=== PATIENT | female | born 1935 | race Caucasian/White ===

== ENCOUNTER 2016-08-09 21:14 | Emergency (ER) | payer OTHER ==
[~2016-08-09 21:14] MED LIST: /AMLO25TA PO; /OCUVTA PO; /ONDA4TA PO; /PROC10TA PO; ACET50TA PO; ACET650T12 PO; ARTH1TAB PO; ASPI1TAB PO; ATEN25TA PO; AUGM500T34 PO; BRIL90TA PO; CALC-136 PO; CIPR500T3 PO; DICL PO; DYAZCA PO; EYE VITAMIN PO; FLAG500T PO; FOLITAB11 PO; HCTZ25TA PO; HYDR1TAB97 PO; IRON CR PO; IRON325T PO; LEVO500T PO; LEVO750T PO; LIPI20TA PO; MAG400TA PO; MAGN400C2 PO; MAGNE; MOM30SS PO; MSIR30TA PO; MYLASSUD PO; OMEP40CA2 PO; PRIL20CA PO; TENO25TA PO; VITA200015 PO; VITMTA PO; XARE15TA PO; XARE20TA PO; ZOFR20TA PO; [UNRECOGNIZED DRUG - REMARK]; aspirin OR; calcium OR; magnesium OR; nitrostat SL
--- NOTE | 2016-08-10 00:10 | REPUSA ---
CLINICAL HISTORY: Left lower extremity pain. TECHNIQUE: Duplex ultrasound of the lower extremity veins was performed with grayscale, color flow im aging and Doppler spectral analysis, without and with compression. LOWER EXTREMITY VENOUS DUPLEX ULTRASOUND: There is mild peripheral nonobstructive thrombus in the mid to distal superficial femoral vein. There is normal compressibility and flow of the common femoral, proximal superficial femoral and popl iteal veins. 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 No acute obstructing thrombus.
[2016-08-10] MEDS ORDERED: predniSONE 20 MG TAB As Ordered ONE (00:43)
--- NOTE | 2016-08-10 00:52 | EDDOCDS ---
Physician Documentation [facility] Name: Gem Nunez Age: 81 yrs Sex: Female : 1935 Arrival Date: 08/09/2016 Time: 21:14 Bed I9 / 22 Private MD: Chay Disposition: 08/10/16 00:36 Discharged to Home/Self Care. Impression: Pain in left knee. - Condition is Stable. - Discharge Instructions: Knee Pain. - Prescriptions for Prednisone 20 mg Oral Tablet - take 2 tablet by ORAL route once daily for 5 days; 10 tablet. - Medication Reconciliation, Local Pharmacy Hours form. - Follow up: Private Physician; When: 1 week; Reason: Continuance of care. - Problem is an acute exacerbation. - Symptoms have improved. Historical: - Allergies: Codeine Sulfate (mekes my mind crazy); - Home Meds: 1. just finished levofloxacin on Thursday for kidney infection 2. Xarelto 20 mg oral tab 1 tab once daily 3. Vitamin D Oral daily 4. Magnesium Oxide Oral daily 5. aspirin 81 mg Oral TbEC 1 tab once daily 6. Vitamin B-12 Oral daily - PMHx: bladder CA; breast cancer; [place]; DVT; skin cancer; vaginal cancer; - Social history: Smoking status: Patient states was never smoker of tobacco. No barriers to communication noted, The patient speaks fluent Prydeinig. - Family history: Not pertinent. - : The pt / caregiver states he / she is on anticoagulants: Xarelto Home medication list is obtained from the patient. - Exposure Risk Screening:: None identified. Vital Signs: 08/09 21:16 BP 177 / 85; Pulse 90; Resp 18 S; Temp 96.2(O); Pulse Ox 99% on R/A; Weight 93.44 kg / gr2 206 lbs (R); Height 5 ft. 2 in. (157.48 cm); Pain 3/10; 08/10 00:48 BP 178 / 86; Pulse 78; Resp 20; Temp 97.3(T); Pulse Ox 98% on R/A; Pain 0/10; jmv 08/09 21:16 Body Mass Index 37.68 (93.44 kg, 157.48 cm) gr2 MDM: 08/09 22:30 DVT US Lower Ordered. EDMS 08/10 00:35 predniSONE 40 mg PO once; administer with food or milk ordered. mm11 00:50 Financial registration complete. [email or web address] Administered Medications: 00:50 Drug: predniSONE 40 mg [prednisone 20 mg tablet (2 tabs)] Route: PO; jo3 Signatures: Dispatcher [employer] Roxane Castellanos RN RN mcp Helmerci, Jennifer, RN RN jo3 Maynard, Matthew, DO DO mm11 Jing Zaragoza, Reg Reg ks16 MTDD
--- NOTE | 2016-08-10 00:52 | EDDOCDS ---
Nurse's Notes [facility] Name: Gem Nunez Age: 81 yrs Sex: Female : 1935 Arrival Date: 08/09/2016 Time: 21:14 Bed I9 / 22 Private MD: Chay Diagnosis: Pain in left knee Presentation: 08/09 21:27 Presenting complaint: Patient states: Left knee pain--started couple of days ago. Has mcp had left knee replacement in past. Adult Sepsis Screening: The patient does not have new or worsening altered mentation. Patient's respiratory rate is less than 22. Systolic blood pressure is greater than 100. Patient has a qSOFA score of 0- Negative Sepsis Screen. Suicide/Homicide risk assessment- the patient denies having any suicidal and/or homicidal ideations and does not present with any other emotional, behavioral or mental health complaints. Status: Patient is not a healthcare advisory services manager or dependent. Transition of care: patient was not received from another setting of care. 21:27 Acuity: MARYAM Level 4 [facility] 21:27 Method Of Arrival: Walkin/Carried/Asstd [facility] Triage Assessment: 21:31 General: Appears uncomfortable, Behavior is cooperative. Pain: Location: left leg Pain mcp currently is 5 out of 10 on a pain scale. Neurological: No deficits noted. Respiratory: Airway is patent Respiratory effort is even, unlabored. Derm: Skin is pink, warm & dry. Musculoskeletal: Circulation, motion, and sensation intact. Historical: - Allergies: Codeine Sulfate (mekes my mind crazy); - Home Meds: 1. just finished levofloxacin on Thursday for kidney infection 2. Xarelto 20 mg oral tab 1 tab once daily 3. Vitamin D Oral daily 4. Magnesium Oxide Oral daily 5. aspirin 81 mg Oral TbEC 1 tab once daily 6. Vitamin B-12 Oral daily - PMHx: bladder [place]; breast cancer; [place]; DVT; skin cancer; vaginal cancer; - Social history: Smoking status: Patient states was never smoker of tobacco. No barriers to communication noted, The patient speaks fluent Honduran. - Family history: Not pertinent. - : The pt / caregiver states he / she is on anticoagulants: Xarelto Home medication list is obtained from the patient. - Exposure Risk Screening:: None identified. Screenin/08 00:38 Screening information is obtained from the patient. Fall risk: No risks identified. jo3 Assistance ADL's: requires no assistance with activities of daily living. Abuse/DV Screen: The patient / caregiver reports he/she is: not in a situation that causes fear, pain or injury. Nutritional screening: No deficits noted. Advance Directives: There is no active DNR order. home support is adequate. Assessment: 08/09 22:25 General: Appears in no apparent distress, Behavior is appropriate for age, cooperative, jo3 pleasant. General: Son at bedside. Neurological: Level of Consciousness is awake, alert. 08/10 00:05 General: Appears in no apparent distress, comfortable, Behavior is appropriate for age, jo3 cooperative, pleasant, Urostomy to right abdomen. Urine appears to be clear and yellow . Neurological: No deficits noted. Level of Consciousness is awake, alert, Oriented to person, place, time. Cardiovascular: some edema to LLE. Good pedal pulses. Pt reports history of DVT x2 . Respiratory: Airway is patent Respiratory effort is even, unlabored. Derm: Skin is pink, warm & dry. Musculoskeletal: Reports pain in left hip and anterior knee with occasional pain to posterior knee. Vital Signs: 08/09 21:16 BP 177 / 85; Pulse 90; Resp 18 S; Temp 96.2(O); Pulse Ox 99% on R/A; Weight 93.44 kg gr2 (R); Height 5 ft. 2 in. (157.48 cm); Pain 3/10; 08/10 00:48 BP 178 / 86; Pulse 78; Resp 20; Temp 97.3(T); Pulse Ox 98% on R/A; Pain 0/10; jmv 08/09 21:16 Body Mass Index 37.68 (93.44 kg, 157.48 cm) gr2 Vitals: 08/09 21:16 Log In Time: August 09, 2016 at 21:16. gr2 ED Course: 21:16 Patient visited by Jose Howe. gr2 21:16 Chay is Private Physician. gr2 21:16 Patient moved to Waiting gr2 21:18 Patient visited by Jose Howe. gr2 21:18 Patient moved to Pre RCE gr2 21:28 Triage Initiated [facility] 21:32 Patient visited by Roxane Mathis RN. [facility] 21:54 Patient moved to I cz 22:16 Leobardo Anderson DO is Attending Physician. mm11 22:16 Patient visited by Leobardo Anderson DO. mm11 22:29 Patient visited by Leobardo Anderson DO. mm11 08/10 00:21 DVT US Lower Returned. EDMS 00:27 Patient visited by Leobardo Anderson DO. mm11 00:38 The patient / caregiver is instructed regarding the plan of care and ED course. jo3 00:38 No IV's were initiated during this patient's visit. jo3 00:38 No procedures done that require assistance. jo3 00:39 Patient visited by Sandy Sanchez RN. jo3 00:50 Patient visited by Kevin Draper PCA. juanyv Administered Medications: 00:50 Drug: predniSONE 40 mg [prednisone 20 mg tablet (2 tabs)] Route: PO; jo3 Order Results: Radiology Order: DVT US Lower Test: DVT US Lower REASON FOR EXAMINATION: pain; ; CLINICAL HISTORY: Left lower extremity pain.; TECHNIQUE: Duplex ultrasound of the lower extremity veins was performed with grayscale, color flow im; aging and Doppler spectral analysis, without and with compression.; ; ; LOWER EXTREMITY VENOUS DUPLEX ULTRASOUND:; There is mild peripheral nonobstructive thrombus in the mid to distal superficial femoral vein.; There is normal compressibility and flow of the common femoral, proximal superficial femoral and popl; iteal veins.; ; IMPRESSION:; ; 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 No acute obstructing thrombus.; ; Outcome: 00:36 Discharge ordered by Provider. mm11 00:50 Discharge Assessment: Patient awake, alert and oriented x 3. No cognitive and/or jo3 functional deficits noted. Patient verbalized understanding of disposition instructions. patient administered narcotics - no. The following High Risk Discharge criteria are identified: None. Discharged to home ambulatory, with family. Condition: stable Condition: unchanged. Discharge instructions given to patient, Instructed on discharge instructions, follow up and referral plans. medication usage, Demonstrated understanding of instructions, medications, Pt was receptive of discharge instructions/ teaching. Prescriptions given X 1. Ultrasound Study completed. Property sent home with patient. 00:52 Patient left the ED. jo3 Signatures: Dispatcher [employer] EDMS Roxane Mathis, RN RN Smith Llamas, Sandy Gibbons RN, RN RN jo3 Leobardo Anderson, DO mm11 Jose Howe gr2 Kevin Draper, [employer]A SUPERVISOR [employer] jmv Corrections: (The following items were deleted from the chart) 00:39 00:05 General: Appears in no apparent distress, comfortable, Behavior is appropriate jo3 for age, cooperative, pleasant, jo3 MTDD
--- NOTE | 2016-08-12 12:13 | EDDOCDS ---
Nurse's Notes [facility] Name: Gem Nunez Age: 81 yrs Sex: Female : 1935 Arrival Date: 08/09/2016 Time: 21:14 Bed I9 / 22 Private MD: Chay Diagnosis: Pain in left knee Presentation: 08/09 21:27 Presenting complaint: Patient states: Left knee pain--started couple of days ago. Has mcp had left knee replacement in past. Adult Sepsis Screening: The patient does not have new or worsening altered mentation. Patient's respiratory rate is less than 22. Systolic blood pressure is greater than 100. Patient has a qSOFA score of 0- Negative Sepsis Screen. Suicide/Homicide risk assessment- the patient denies having any suicidal and/or homicidal ideations and does not present with any other emotional, behavioral or mental health complaints. Status: Patient is not a home restoration service cleaner or dependent. Transition of care: patient was not received from another setting of care. 21:27 Acuity: MARYAM Level 4 [facility] 21:27 Method Of Arrival: Walkin/Carried/Asstd [facility] Triage Assessment: 21:31 General: Appears uncomfortable, Behavior is cooperative. Pain: Location: left leg Pain mcp currently is 5 out of 10 on a pain scale. Neurological: No deficits noted. Respiratory: Airway is patent Respiratory effort is even, unlabored. Derm: Skin is pink, warm & dry. Musculoskeletal: Circulation, motion, and sensation intact. Historical: - Allergies: Codeine Sulfate (mekes my mind crazy); - Home Meds: 1. just finished levofloxacin on Thursday for kidney infection 2. Xarelto 20 mg oral tab 1 tab once daily 3. Vitamin D Oral daily 4. Magnesium Oxide Oral daily 5. aspirin 81 mg Oral TbEC 1 tab once daily 6. Vitamin B-12 Oral daily - PMHx: bladder CA; breast cancer; [place]; DVT; skin cancer; vaginal cancer; - Social history: Smoking status: Patient states was never smoker of tobacco. No barriers to communication noted, The patient speaks fluent Eritrean. - Family history: Not pertinent. - : The pt / caregiver states he / she is on anticoagulants: Xarelto Home medication list is obtained from the patient. - Exposure Risk Screening:: None identified. Screenin/08 00:38 Screening information is obtained from the patient. Fall risk: No risks identified. jo3 Assistance ADL's: requires no assistance with activities of daily living. Abuse/DV Screen: The patient / caregiver reports he/she is: not in a situation that causes fear, pain or injury. Nutritional screening: No deficits noted. Advance Directives: There is no active DNR order. home support is adequate. Assessment: 08/09 22:25 General: Appears in no apparent distress, Behavior is appropriate for age, cooperative, jo3 pleasant. General: Son at bedside. Neurological: Level of Consciousness is awake, alert. 08/10 00:05 General: Appears in no apparent distress, comfortable, Behavior is appropriate for age, jo3 cooperative, pleasant, Urostomy to right abdomen. Urine appears to be clear and yellow . Neurological: No deficits noted. Level of Consciousness is awake, alert, Oriented to person, place, time. Cardiovascular: some edema to LLE. Good pedal pulses. Pt reports history of DVT x2 . Respiratory: Airway is patent Respiratory effort is even, unlabored. Derm: Skin is pink, warm & dry. Musculoskeletal: Reports pain in left hip and anterior knee with occasional pain to posterior knee. Vital Signs: 08/09 21:16 BP 177 / 85; Pulse 90; Resp 18 S; Temp 96.2(O); Pulse Ox 99% on R/A; Weight 93.44 kg gr2 (R); Height 5 ft. 2 in. (157.48 cm); Pain 3/10; 08/10 00:48 BP 178 / 86; Pulse 78; Resp 20; Temp 97.3(T); Pulse Ox 98% on R/A; Pain 0/10; jmv 08/09 21:16 Body Mass Index 37.68 (93.44 kg, 157.48 cm) gr2 Vitals: 08/09 21:16 Log In Time: August 09, 2016 at 21:16. gr2 ED Course: 21:16 Patient visited by Jose Howe. gr2 21:16 Chay is Private Physician. gr2 21:16 Patient moved to Waiting gr2 21:18 Patient visited by Jose Howe. gr2 21:18 Patient moved to Pre RCE gr2 21:28 Triage Initiated [facility] 21:32 Patient visited by Roxane Mathis RN. [facility] 21:54 Patient moved to I cz 22:16 Leobardo Anderson DO is Attending Physician. mm11 22:16 Patient visited by Leobardo Anderson DO. mm11 22:29 Patient visited by Leobardo Anderson DO. mm11 08/10 00:21 DVT US Lower Returned. EDMS 00:27 Patient visited by Leobardo Anderson DO. mm11 00:38 The patient / caregiver is instructed regarding the plan of care and ED course. jo3 00:38 No IV's were initiated during this patient's visit. jo3 00:38 No procedures done that require assistance. jo3 00:39 Patient visited by Sandy Sanchez RN. jo3 00:50 Patient visited by Kevin Draper PCA. jmv 00:59 [facility] Payment Agreement was scanned into [employer] and attached to record. gjb 07:53 T-Sheet-- Draft Copy was scanned into [employer] and attached to record. se 10:40 Radiology Report was scanned into [employer] and attached to record. gb Administered Medications: 00:50 Drug: predniSONE 40 mg [prednisone 20 mg tablet (2 tabs)] Route: PO; jo3 Order Results: Radiology Order: DVT US Lower Test: DVT US Lower REASON FOR EXAMINATION: pain; ; CLINICAL HISTORY: Left lower extremity pain.; TECHNIQUE: Duplex ultrasound of the lower extremity veins was performed with grayscale, color flow im; aging and Doppler spectral analysis, without and with compression.; ; ; LOWER EXTREMITY VENOUS DUPLEX ULTRASOUND:; There is mild peripheral nonobstructive thrombus in the mid to distal superficial femoral vein.; There is normal compressibility and flow of the common femoral, proximal superficial femoral and popl; iteal veins.; ; IMPRESSION:; ; 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 No acute obstructing thrombus.; ; Outcome: 00:36 Discharge ordered by Provider. mm11 00:50 Discharge Assessment: Patient awake, alert and oriented x 3. No cognitive and/or jo3 functional deficits noted. Patient verbalized understanding of disposition instructions. patient administered narcotics - no. The following High Risk Discharge criteria are identified: None. Discharged to home ambulatory, with family. Condition: stable Condition: unchanged. Discharge instructions given to patient, Instructed on discharge instructions, follow up and referral plans. medication usage, Demonstrated understanding of instructions, medications, Pt was receptive of discharge instructions/ teaching. Prescriptions given X 1. Ultrasound Study completed. Property sent home with patient. 00:52 Patient left the ED. jo3 Signatures: Dispatcher [employer] EDMS Roxane Mathis, RN RN Smith Llamas RN RN cz Barnhardt, Gloria, Luisito Reg Sandy Mac RN RN jo3 Leobardo Anderson, DO mm11 Jose Howe gr2 Rain Peters Sarah seh Vega, Jose, [employer] MANAGER EMPLOYMENT jmv Corrections: (The following items were deleted from the chart) 00:39 00:05 General: Appears in no apparent distress, comfortable, Behavior is appropriate jo3 for age, cooperative, pleasant, jo3 Chart Complete MTDD
--- NOTE | 2016-08-12 12:13 | EDDOCDS ---
Physician Documentation [facility] Name: Gem Nunez Age: 81 yrs Sex: Female : 1935 Arrival Date: 08/09/2016 Time: 21:14 Bed I9 / 22 Private MD: Chay Disposition: 08/10/16 00:36 Discharged to Home/Self Care. Impression: Pain in left knee. - Condition is Stable. - Discharge Instructions: Knee Pain. - Prescriptions for Prednisone 20 mg Oral Tablet - take 2 tablet by ORAL route once daily for 5 days; 10 tablet. - Medication Reconciliation, Local Pharmacy Hours form. - Follow up: Private Physician; When: 1 week; Reason: Continuance of care. - Problem is an acute exacerbation. - Symptoms have improved. Historical: - Allergies: Codeine Sulfate (mekes my mind crazy); - Home Meds: 1. just finished levofloxacin on Thursday for kidney infection 2. Xarelto 20 mg oral tab 1 tab once daily 3. Vitamin D Oral daily 4. Magnesium Oxide Oral daily 5. aspirin 81 mg Oral TbEC 1 tab once daily 6. Vitamin B-12 Oral daily - PMHx: bladder [place]; breast cancer; [place]; DVT; skin cancer; vaginal cancer; - Social history: Smoking status: Patient states was never smoker of tobacco. No barriers to communication noted, The patient speaks fluent Serbian. - Family history: Not pertinent. - : The pt / caregiver states he / she is on anticoagulants: Xarelto Home medication list is obtained from the patient. - Exposure Risk Screening:: None identified. Vital Signs: 08/09 21:16 BP 177 / 85; Pulse 90; Resp 18 S; Temp 96.2(O); Pulse Ox 99% on R/A; Weight 93.44 kg / gr2 206 lbs (R); Height 5 ft. 2 in. (157.48 cm); Pain 3/10; 08/10 00:48 BP 178 / 86; Pulse 78; Resp 20; Temp 97.3(T); Pulse Ox 98% on R/A; Pain 0/10; jmv 08/09 21:16 Body Mass Index 37.68 (93.44 kg, 157.48 cm) gr2 MDM: 08/09 22:30 DVT US Lower Ordered. EDMS 08/10 00:35 predniSONE 40 mg PO once; administer with food or milk ordered. mm11 00:50 Financial registration complete. [email or web address] 00:59 [facility] Payment Agreement was scanned into [employer] and attached to record. gjb 07:53 T-Sheet-- Draft Copy was scanned into [employer] and attached to record. se 10:40 Radiology Report was scanned into [employer] and attached to record. gb Administered Medications: 00:50 Drug: predniSONE 40 mg [prednisone 20 mg tablet (2 tabs)] Route: PO; jo3 Signatures: Dispatcher [employer] EDRoxane Herman RN RN Skylar Hull, Reg Reg gb Sandy Sanchez RN RN jo3 Maynard, Matthew, DO mm11 Rain Peters Kimberly, Reg Reg ks16 Consuelo Pritchard The chart was reviewed and I authenticate all verbal orders and agree with the evaluation and treatment provided.Attachments: 00:59 [facility] Payment Agreement gj 07:53 T-Sheet-- Draft Copy [facility] Chart Complete MTDD
--- NOTE | 2016-08-12 12:13 | EDDOCDS ---
Physician Documentation [facility] Name: Gem Nunez Age: 81 yrs Sex: Female : 1935 Arrival Date: 08/09/2016 Time: 21:14 Bed I9 / 22 Private MD: Chay Disposition: 08/10/16 00:36 Discharged to Home/Self Care. Impression: Pain in left knee. - Condition is Stable. - Discharge Instructions: Knee Pain. - Prescriptions for Prednisone 20 mg Oral Tablet - take 2 tablet by ORAL route once daily for 5 days; 10 tablet. - Medication Reconciliation, Local Pharmacy Hours form. - Follow up: Private Physician; When: 1 week; Reason: Continuance of care. - Problem is an acute exacerbation. - Symptoms have improved. Historical: - Allergies: Codeine Sulfate (mekes my mind crazy); - Home Meds: 1. just finished levofloxacin on Thursday for kidney infection 2. Xarelto 20 mg oral tab 1 tab once daily 3. Vitamin D Oral daily 4. Magnesium Oxide Oral daily 5. aspirin 81 mg Oral TbEC 1 tab once daily 6. Vitamin B-12 Oral daily - PMHx: bladder [place]; breast cancer; [place]; DVT; skin cancer; vaginal cancer; - Social history: Smoking status: Patient states was never smoker of tobacco. No barriers to communication noted, The patient speaks fluent [place]. - Family history: Not pertinent. - : The pt / caregiver states he / she is on anticoagulants: Xarelto Home medication list is obtained from the patient. - Exposure Risk Screening:: None identified. Vital Signs: 08/09 21:16 BP 177 / 85; Pulse 90; Resp 18 S; Temp 96.2(O); Pulse Ox 99% on R/A; Weight 93.44 kg / gr2 206 lbs (R); Height 5 ft. 2 in. (157.48 cm); Pain 3/10; 08/10 00:48 BP 178 / 86; Pulse 78; Resp 20; Temp 97.3(T); Pulse Ox 98% on R/A; Pain 0/10; jmv 08/09 21:16 Body Mass Index 37.68 (93.44 kg, 157.48 cm) gr2 MDM: 08/09 22:30 DVT US Lower Ordered. EDMS 08/10 00:35 predniSONE 40 mg PO once; administer with food or milk ordered. mm11 00:50 Financial registration complete. [email or web address] 00:59 [facility] Payment Agreement was scanned into [employer] and attached to record. gjb 07:53 T-Sheet-- Draft Copy was scanned into [employer] and attached to record. se 10:40 Radiology Report was scanned into [employer] and attached to record. gb Administered Medications: 00:50 Drug: predniSONE 40 mg [prednisone 20 mg tablet (2 tabs)] Route: PO; jo3 Signatures: Dispatcher [employer] EDRoxane Herman RN RN Skylar Hull, Reg Reg gb Sandy Sanchez RN RN jo3 Maynard, Matthew, DO mm11 Rian Peters Kimberly, Reg Reg ks16 Consuelo Pritchard The chart was reviewed and I authenticate all verbal orders and agree with the evaluation and treatment provided.Attachments: 00:59 [facility] Payment Agreement gj 07:53 T-Sheet-- Draft Copy [facility] Chart Complete MTDD
== END 2016-08-10 00:52 | disposition home or self-care (01) ==
LOC: M ED 21:14
DX: M25.562 Pain in left knee (principal); I25.2 Old myocardial infarction; I82.402 Acute embolism and thrombosis of unspecified deep veins of left lower extremity; Z85.3 Personal history of malignant neoplasm of breast; Z85.40 Personal history of malignant neoplasm of unspecified female genital organ; Z85.51 Personal history of malignant neoplasm of bladder; Z85.828 Personal history of other malignant neoplasm of skin; Z96.652 Presence of left artificial knee joint; Z79.01 Long term (current) use of anticoagulants; Z79.82 Long term (current) use of aspirin; Z88.2 Allergy status to sulfonamides; Z88.5 Allergy status to narcotic agent

== ENCOUNTER → 2016-09-16 | Outpatient (REF) | payer OTHER ==
[~2016-09-16] MED LIST changes: +HYDR-3713 PO; -HYDR1TAB97 PO; -PRIL20CA PO; +PRIL20CA9 PO
== END ==
LOC: M SMT 13:04
PROVIDERS: ATTEND Urology
DX: R31.9 Hematuria, unspecified (principal); Z85.51 Personal history of malignant neoplasm of bladder; Z08 Encounter for follow-up examination after completed treatment for malignant neoplasm

== ENCOUNTER → 2016-09-22 | Outpatient (REF) | payer OTHER | LOC: M LAB REF 12:51 | PROVIDERS: ATTEND Family Medicine | DX: R82.99 Other abnormal findings in urine (principal) ==

== ENCOUNTER 2016-10-15 21:49 | Emergency (ER) | payer OTHER, MEDICAID ==
[~2016-10-15] VITALS: Ht 157.5 cm; Wt 90.7 kg
[2016-10-15 21:49] VITALS: BP 193/96
[2016-10-15] MEDS ORDERED: VITA100L PO (22:18)
[2016-10-15 23:11] LABS: BASO % 0.5 % (0.0-1.0); EOS # 0.1 K/mm3 (0.0-0.50); EOS % 2.4 % (0.0-3.0); LARGE UNSTAINED CELL # 0.1 K/mm3 (0.0-0.4); LARGE UNSTAINED CELL % 2.3 % (0.0-4.0); LYMPH # 1.4 K/mm3 (1.5-4.5); LYMPH % 25.8 % (24.0-44.0); MEAN CORPUSCULAR HEMOGLOBIN 28.4 pg (27.0-33.0); MEAN CORPUSCULAR HGB CONC 31.6 g/dl (32.0-36.5); MEAN CORPUSCULAR VOLUME 89.7 fl (80.0-96.0); MONO # 0.4 K/mm3 (0.0-0.8); MONO % 8.7 % (0.0-5.0); NEUTROPHILS % 60.4 % (36.0-66.0); PLATELET COUNT, AUTOMATED 150 k/mm3 (150-450); RED CELL DISTRIBUTION WIDTH 13.8 % (11.5-14.5); WHITE BLOOD COUNT 4.9 K/mm3 (4.0-10.0)
[2016-10-15 23:16] LABS: INR 1.26
[2016-10-15 23:28] LABS: TRIPLE PHOSPHATE CRYSTALS LARGE
[2016-10-15 23:35] LABS: CALCIUM LEVEL 9.1 MG/DL (8.8-10.2); CREATININE FOR GFR 1.18 MG/DL (0.55-1.02); GLOMERULAR FILTRATION RATE 46.8 (>32); POTASSIUM SERUM 4.2 MEQ/L (3.5-5.1)
[2016-10-15] MEDS ORDERED: MACR100C3 PO (23:50)
[2016-10-16] MEDS ORDERED: NITROFURANTOIN (MACROBID) 100 MG CAP PO ONE
== END 2016-10-16 00:18 | disposition home or self-care (01) ==
LOC: M ED 23:48
DX: R31.9 Hematuria, unspecified (principal); I50.9 Heart failure, unspecified; I10 Essential (primary) hypertension; I73.9 Peripheral vascular disease, unspecified; R42 Dizziness and giddiness; I25.2 Old myocardial infarction; Z95.5 Presence of coronary angioplasty implant and graft; Z79.01 Long term (current) use of anticoagulants; Z79.82 Long term (current) use of aspirin; Z85.51 Personal history of malignant neoplasm of bladder; Z87.440 Personal history of urinary (tract) infections

== ENCOUNTER → 2016-10-29 | Outpatient (REF) | payer OTHER ==
[~2016-10-29] MED LIST changes: +MACR100C3 PO; +VITA100L PO
== END ==
LOC: M SMT 17:00
PROVIDERS: ATTEND Nurse Practitioner Women's Health
DX: N39.0 Urinary tract infection, site not specified (principal)
CPT/HCPCS: 87088; 87186; G0463

== ENCOUNTER → 2016-12-04 | Outpatient (CLI) | payer OTHER ==
[2016-12-04 19:14] LABS: CALCIUM LEVEL 9.7 MG/DL (8.8-10.2); CREATININE FOR GFR 1.12 MG/DL (0.55-1.02); GLOMERULAR FILTRATION RATE 49.7 (>32); POTASSIUM SERUM 4.4 MEQ/L (3.5-5.1)
[2016-12-04 19:31] LABS: MEAN CORPUSCULAR HEMOGLOBIN 29.7 pg (27.0-33.0); MEAN CORPUSCULAR HGB CONC 31.9 g/dl (32.0-36.5); MEAN CORPUSCULAR VOLUME 92.9 fl (80.0-96.0); RED CELL DISTRIBUTION WIDTH 13.9 % (11.5-14.5); WHITE BLOOD COUNT 5.1 K/mm3 (4.0-10.0)
== END ==
LOC: M SMT 13:11
PROVIDERS: ATTEND Urology
DX: N39.0 Urinary tract infection, site not specified (principal); Z85.51 Personal history of malignant neoplasm of bladder

== ENCOUNTER → 2017-01-06 | Outpatient (CLI) | payer OTHER, MEDICAID ==
[2017-01-06 12:52] LABS: BASO % 0.6 % (0.0-1.0); EOS # 0.2 K/mm3 (0.0-0.50); EOS % 4.1 % (0.0-3.0); LARGE UNSTAINED CELL # 0.1 K/mm3 (0.0-0.4); LARGE UNSTAINED CELL % 1.6 % (0.0-4.0); LYMPH # 1.4 K/mm3 (1.5-4.5); LYMPH % 35.9 % (24.0-44.0); MEAN CORPUSCULAR HEMOGLOBIN 29.4 pg (27.0-33.0); MEAN CORPUSCULAR HGB CONC 32.4 g/dl (32.0-36.5); MEAN CORPUSCULAR VOLUME 90.7 fl (80.0-96.0); MONO # 0.3 K/mm3 (0.0-0.8); MONO % 7.4 % (0.0-5.0); NEUTROPHILS # 1.9 K/mm3 (1.8-7.7); NEUTROPHILS % 50.5 % (36.0-66.0); PLATELET COUNT, AUTOMATED 160 k/mm3 (150-450); RED CELL DISTRIBUTION WIDTH 14.2 % (11.5-14.5); WHITE BLOOD COUNT 3.7 K/mm3 (4.0-10.0)
[2017-01-06 13:21] LABS: ALBUMIN/GLOBULIN RATIO 0.91 (1.00-1.93); BILIRUBIN,TOTAL 0.4 MG/DL (0.2-1.0); CALCIUM LEVEL 8.9 MG/DL (8.8-10.2); CREATININE FOR GFR 1.02 MG/DL (0.55-1.02); GLOMERULAR FILTRATION RATE 55.4 (>32); POTASSIUM SERUM 4.5 MEQ/L (3.5-5.1); TOTAL PROTEIN 6.3 GM/DL (6.4-8.2)
== END ==
LOC: M SMT 08:46
PROVIDERS: ATTEND Family Medicine
DX: R73.9 Hyperglycemia, unspecified (principal); K59.00 Constipation, unspecified; I25.10 Atherosclerotic heart disease of native coronary artery without angina pectoris

== ENCOUNTER → 2017-01-08 | Outpatient (CLI) | payer MEDICAID, OTHER ==
[~2017-01-08] MED LIST changes: +ISOVUE-370 76% 100ML VIAL (Q9967) As Ordered ONE
--- NOTE | 2017-01-09 03:57 | REP ---
Clinical: Bladder cancer. Technique: Axial contrast enhanced images from the thoracic inlet to the upper abdomen using 100 ml Isovue 370 intravenous contrast material with coronal and sagittal re-formations. Comparison: 04/30/2016. Findings: Lung king are relatively well aerated, symmetric and clear with only minimal chronic-appearing basilar changes. No consolidation, nodule, or mass lesion appreciated. No pleural effusion/reaction or pneumothorax. Tracheobronchial tree is patent. Atherosclerotic changes to the thoracic aorta and coronary arteries noted without aortic aneurysm or cardiomegaly. No pericardial effusion. No significant adenopathy. Surrounding musculoskeletal structures demonstrate age-related changes without focal osseous abnormality. Impression: Minimal chronic basilar changes. Moderate atherosclerotic changes to the thoracic aorta and coronary arteries. No acute mediastinal or pleuroparenchymal process appreciated. Signed by Rome Ruff MD 01/09/2017 03:49 [facility]
--- NOTE | 2017-01-09 04:06 | REP ---
Clinical: Bladder cancer. Technique: Axial precontrast, contrast enhanced, and delayed images from the lung bases to the pubic symphysis using 100 ml Isovue 370 intravenous contrast material with coronal and sagittal re-formations. Comparison: 04/14/2016. Findings: Lung bases demonstrate minimal chronic changes. Liver, spleen, and pancreas are normal / stable. Cholelithiasis noted without CT evidence for acute cholecystitis. Small bilateral adrenal lesions are unchanged and likely represent atypical adenomas. Chronic atrophy to the left kidney noted along with bilateral nonobstructing calculi measuring up to approximately 13 mm in the right kidney and 4 mm in the left kidney. No associated perinephric stranding or hydroureteronephrosis. The patient is status post cystectomy with a urostomy via the right anterior abdominal wall. The enteric system is without obstruction or acute inflammatory process. Colonic and sigmoid diverticulosis noted without acute diverticulitis. The patient is status post hysterectomy. No pelvic fluid or ascites. No significant adenopathy. No free air. No abdominal pelvic mass lesion. Osseous structures demonstrate degenerative changes without focal osseous abnormality. Impression: 1. Chronic stable findings as described above including a urostomy via the right anterior abdominal wall which appears normal and without associated hydroureteronephrosis. No adenopathy, ascites or mass lesion. 2. Further chronic changes include cholelithiasis, atrophic left kidney and bilateral nephroliths up to 13 mm, stable bilateral adrenal lesions likely atypical adenoma as, diverticulosis without acute diverticulitis. Signed by Rome Ruff MD 01/09/2017 03:58 A
== END ==
LOC: M RAD 13:55
PROVIDERS: ATTEND Urology
DX: Z85.51 Personal history of malignant neoplasm of bladder (principal)
CPT/HCPCS: 71260; 74178; Q9967

== ENCOUNTER → 2017-01-30 | Outpatient (CLI) | payer OTHER, MEDICAID ==
[~2017-01-30] MED LIST changes: -ISOVUE-370 76% 100ML VIAL (Q9967) As Ordered ONE; -MACR100C3 PO; +MACR100C43 PO
--- NOTE | 2017-01-30 14:20 | REP ---
Clinical: Lower back pain. Technique: AP, lateral, and coned-down view of the lumbosacral spine. Findings: Age-related osteopenia and advanced multilevel degenerative disc osteophyte complexes noted throughout the visualized lower thoracic and lumbosacral spine. No acute fracture / compression injury identified. Degenerative changes include endplate sclerosis/heterogeneity, disc space narrowing, osteophytosis and hypertrophic facet changes. Impression: Advanced multilevel degenerative changes. Signed by Rome Ruff MD 01/30/2017 02:12 P
--- NOTE | 2017-01-30 15:16 | REP ---
Clinical: Left-sided pain. Technique: AP, AP angled and bilateral oblique views of the sacroiliac joints. Findings: Age-related degenerative changes include periarticular sclerosis and subtle spurring at the bilateral sacroiliac joints. No effusion. No acute fracture or subluxation. Impression: Moderate age-related degenerative changes of bilateral sacroiliac joints. Signed by Rome Ruff MD 01/30/2017 03:08 P
== END ==
LOC: M SMT 13:29
PROVIDERS: ATTEND Physician Assistant
DX: M53.87 Other specified dorsopathies, lumbosacral region (principal)

== ENCOUNTER → 2017-03-27 | Outpatient (CLI) | payer OTHER, MEDICAID ==
[2017-03-27 13:45] LABS: ALBUMIN 3.3 GM/DL (3.2-5.2); ALBUMIN/GLOBULIN RATIO 0.92 (1.00-1.93); BILIRUBIN,TOTAL 0.4 MG/DL (0.2-1.0); CALCIUM LEVEL 9.5 MG/DL (8.8-10.2); CREATININE FOR GFR 0.98 MG/DL (0.55-1.02); FREE T4 1.45 NG/DL (0.76-1.46); POTASSIUM SERUM 4.4 MEQ/L (3.5-5.1); TOTAL PROTEIN 6.9 GM/DL (6.4-8.2)
== END ==
LOC: M SMT 07:59
PROVIDERS: ATTEND Family Medicine
DX: E03.9 Hypothyroidism, unspecified (principal); R73.9 Hyperglycemia, unspecified

== ENCOUNTER → 2017-07-03 | Outpatient (CLI) | payer OTHER, MEDICAID ==
[2017-07-03 14:37] LABS: CALCIUM LEVEL 9.5 MG/DL (8.8-10.2); CREATININE FOR GFR 1.03 MG/DL (0.55-1.02); FREE T4 1.27 NG/DL (0.76-1.46); GLOMERULAR FILTRATION RATE 54.6 (>32); MAGNESIUM LEVEL 2.1 MG/DL (1.8-2.4); POTASSIUM SERUM 4.5 MEQ/L (3.5-5.1)
== END ==
LOC: M SMT 08:15
PROVIDERS: ATTEND Physician Assistant
DX: E03.9 Hypothyroidism, unspecified (principal); E11.9 Type 2 diabetes mellitus without complications

== ENCOUNTER → 2017-07-16 | Outpatient (CLI) | payer OTHER, MEDICAID ==
[2017-07-16 17:39] LABS: MEAN CORPUSCULAR HGB CONC 32.3 g/dl (32.0-36.5); MEAN CORPUSCULAR VOLUME 86.5 fl (80.0-96.0); PLATELET COUNT, AUTOMATED 188 10^3/uL (150-450); RED CELL DISTRIBUTION WIDTH 15.1 % (11.5-14.5)
[2017-07-16 18:34] LABS: ALBUMIN 3.4 GM/DL (3.2-5.2); ALBUMIN/GLOBULIN RATIO 0.97 (1.00-1.93); BILIRUBIN,TOTAL 0.3 MG/DL (0.2-1.0); CREATININE FOR GFR 1.27 MG/DL (0.55-1.02); GLOMERULAR FILTRATION RATE 42.9 (>32); POTASSIUM SERUM 4.6 MEQ/L (3.5-5.1); TOTAL PROTEIN 6.9 GM/DL (6.4-8.2)
== END ==
LOC: M SMT 13:57
PROVIDERS: ATTEND Nurse Practitioner Women's Health
DX: Z08 Encounter for follow-up examination after completed treatment for malignant neoplasm (principal); Z85.51 Personal history of malignant neoplasm of bladder

== ENCOUNTER 2017-08-29 13:06 | Emergency (ER) | payer OTHER, MEDICAID ==
[2017-08-29 14:38] LABS: BASO % 0.6 % (0.0-1.0); EOS # 0.1 10^3/uL (0.0-0.50); EOS % 1.4 % (0.0-3.0); HEMATOCRIT 38.8 % (36.0-47.0); HEMOGLOBIN 12.7 g/dl (12.0-16.0); IMMATURE GRANULOCYTE % 0.3 % (0-0); LYMPH # 1.2 10^3/uL (1.5-4.5); LYMPH % 18.8 % (24.0-44.0); MEAN CORPUSCULAR HEMOGLOBIN 28.5 pg (27.0-33.0); MEAN CORPUSCULAR HGB CONC 32.7 g/dl (32.0-36.5); MONO # 0.6 10^3/uL (0.0-0.8); MONO % 9.8 % (0.0-5.0); NEUTROPHILS # 4.3 10^3/uL (1.8-7.7); NEUTROPHILS % 69.1 % (36.0-66.0); PLATELET COUNT, AUTOMATED 163 10^3/uL (150-450); RED BLOOD COUNT 4.46 10^6/uL (4.00-5.40); RED CELL DISTRIBUTION WIDTH 15.2 % (11.5-14.5); WHITE BLOOD COUNT 6.2 10^3/uL (4.0-10.0)
[2017-08-29 14:44] LABS: APPEARANCE, URINE MANUAL TURBID (CLEAR); COLOR, URINE MANUAL RED (YELLOW)
[2017-08-29 14:46] LABS: PH,URINE MAN 8.5 UNITS (5.0 - 7.0)
[2017-08-29 14:47] LABS: BILIRUBIN, URINE MANUAL NEGATIVE (NEGATIVE); BLOOD URINE MANUAL POSITIVE (NEGATIVE); GLUCOSE, URINE (UA) MANUAL NEGATIVE (NEGATIVE); KETONE, URINE MANUAL NEGATIVE (NEGATIVE); LEUKOCYTE ESTERASE, URINE MAN POSITIVE (NEGATIVE); MICROSCOPIC INDICATED? MAN YES (NO); NITRITE, URINE MANUAL POSITIVE (NEGATIVE); PROTEIN, URINE MANUAL 2+ mg/dL (NEGATIVE); SPECIFIC GRAVITY,URINE MANUAL 1.012 (1.002-1.035); UROBILINOGEN, URINE MANUAL NORMAL (NORMAL)
[2017-08-29 14:50] LABS: BACTERIA, URINE SMALL AMOUNT; HYALINE CAST, URINE NONE SEEN /lpf (0-1); INR 2.22; MICROSCOPIC EXAM PERFORMED; PROTHROMBIN TIME 25.4 SECONDS (12.4-14.5); RBC, URINE TNTC /hpf (0-3); SQUAMOUS EPITHELIAL CELL URINE NONE SEEN /hpf (SMALL AMT); TRIPLE PHOSPHATE CRYSTAL,URINE SMALL AMOUNT /hpf; WBC, URINE TNTC /hpf (0-3)
[2017-08-29 15:02] LABS: ANION GAP 8 MEQ/L (8-16); BLOOD UREA NITROGEN 29 MG/DL (7-18); CALCIUM LEVEL 9.2 MG/DL (8.8-10.2); CARBON DIOXIDE LEVEL 27 MEQ/L (21-32); CHLORIDE LEVEL 104 MEQ/L (98-107); CREATININE FOR GFR 1.23 MG/DL (0.55-1.02); GLOMERULAR FILTRATION RATE 44.5 (>32); GLUCOSE, FASTING 156 MG/DL (70-100); POTASSIUM SERUM 4.4 MEQ/L (3.5-5.1); SODIUM LEVEL 139 MEQ/L (136-145)
== END 2017-08-29 17:25 | disposition home or self-care (01) ==
LOC: M ED 13:06
DX: N39.0 Urinary tract infection, site not specified (principal); M89.9 Disorder of bone, unspecified; N13.30 Unspecified hydronephrosis; N20.0 Calculus of kidney; N18.9 Chronic kidney disease, unspecified; I25.10 Atherosclerotic heart disease of native coronary artery without angina pectoris; I25.2 Old myocardial infarction; Z79.82 Long term (current) use of aspirin; Z79.899 Other long term (current) drug therapy; Z87.442 Personal history of urinary calculi; Z88.5 Allergy status to narcotic agent; Z88.8 Allergy status to other drugs, medicaments and biological substances; Z91.02 Food additives allergy status; Z91.048 Other nonmedicinal substance allergy status; Z98.890 Other specified postprocedural states; Z95.5 Presence of coronary angioplasty implant and graft; Z87.19 Personal history of other diseases of the digestive system; Z86.718 Personal history of other venous thrombosis and embolism; Z85.3 Personal history of malignant neoplasm of breast; Z85.51 Personal history of malignant neoplasm of bladder; Z85.828 Personal history of other malignant neoplasm of skin
CPT/HCPCS: 74176

== ENCOUNTER → 2017-08-31 | Outpatient (REF) | payer OTHER, MEDICAID ==
[2017-08-31 19:12] LABS: APPEARANCE, URINE CLOUDY (CLEAR); BACTERIA, URINE AUTO 3+ (NEGATIVE); BILIRUBIN, URINE AUTO NEGATIVE (NEGATIVE); BLOOD, URINE BLOOD 3+ (NEGATIVE); COLOR, URINE YELLOW (YELLOW); GLUCOSE, URINE (UA) AUTO NEGATIVE (NEGATIVE); KETONE, URINE AUTO NEGATIVE (NEGATIVE); LEUKOCYTE ESTERASE, URINE AUTO 3+ (NEGATIVE); NITRITE, URINE AUTO NEGATIVE (NEGATIVE); PROTEIN, URINE AUTO 2+ mg/dL (NEGATIVE); RBC, URINE AUTO 95 /HPF (0-3); SPECIFIC GRAVITY URINE AUTO 1.009 (1.002-1.035); SQUAMOUS EPITHELIAL CELL UR AU 0 /HPF (0-6); UROBILINOGEN, URINE AUTO 0.2 mg/dL (0.0-2.0); WBC, URINE AUTO 168 /HPF (0-3)
== END ==
LOC: M SMT 17:22
DX: R31.0 Gross hematuria (principal)
CPT/HCPCS: 81001

== ENCOUNTER → 2017-09-11 | Outpatient (CLI) | payer OTHER, MEDICAID | LOC: M RAD 09:56 | DX: Z85.51 Personal history of malignant neoplasm of bladder (principal) | CPT/HCPCS: 78306 ==

== ENCOUNTER 2017-11-23 07:53 | Day surgery (SDC) | payer OTHER ==
[~2017-11-23 07:53] MED LIST changes: -/AMLO25TA PO; -/OCUVTA PO; -/ONDA4TA PO; -/PROC10TA PO; -ACET50TA PO; -ACET650T12 PO; +ACETAMINOPHEN 325 MG TAB PO; -ARTH1TAB PO; -ASPI1TAB PO; -ATEN25TA PO; -AUGM500T34 PO; -BRIL90TA PO; -CALC-136 PO; -CIPR500T3 PO; -DICL PO; -DYAZCA PO; -EYE VITAMIN PO; -FLAG500T PO; -FOLITAB11 PO; -HCTZ25TA PO; -HYDR-3713 PO; -IRON CR PO; -IRON325T PO; -LEVO500T PO; -LEVO750T PO; -LIPI20TA PO; -MACR100C43 PO; -MAG400TA PO; -MAGN400C2 PO; -MAGNE; -MOM30SS PO; -MSIR30TA PO; -MYLASSUD PO; -OMEP40CA2 PO; +PHENYLEPHRINE HCL 10 % OPHTH. SOL 5ML OD; -PRIL20CA9 PO; -TENO25TA PO; -VITA100L PO; -VITA200015 PO; -VITMTA PO; -XARE15TA PO; -XARE20TA PO; -ZOFR20TA PO; -[UNRECOGNIZED DRUG - REMARK]; -aspirin OR; -calcium OR; -magnesium OR; -nitrostat SL
[2017-11-23] MEDS ORDERED: OFLOXACIN 0.3 % (OCUFLOX) OPTH SOL 5ML As Ordered (07:56)
[2017-11-23] MEDS ORDERED: TROPICAMIDE 1% OPHTH SOLN 2ML As Ordered (07:56)
[2017-11-23] MEDS ORDERED: CYCLOPENTOLATE 2% OPHTH SOLN 2ML BTL As Ordered (07:56)
[2017-11-23] MEDS ORDERED: PHENYLEPHRINE 2.5% OPHTH SOL 2ML As Ordered (07:56)
[2017-11-23] MEDS ORDERED: TRIMETHOBENZAMIDE 300 MG CAP PO (08:15)
[2017-11-23] MEDS: TROPICAMIDE 1% OPHTH SOLN 2ML OD (08:39)
[2017-11-23] MEDS: OFLOXACIN 0.3 % (OCUFLOX) OPTH SOL 5ML OD (08:39)
[2017-11-23] MEDS: LIDOCAINE 3.5 % 1ML OPHTH TOPICAL GEL OU (08:40)
[2017-11-23] MEDS: PHENYLEPHRINE 2.5% OPHTH SOL 2ML OD (08:40)
[2017-11-23] MEDS: CYCLOPENTOLATE 2% OPHTH SOLN 2ML BTL OD (08:40)
[2017-11-23] MEDS ORDERED: fentaNYL 100 MCG/2 ML INJECTION (J3010) As Ordered (09:56)
[2017-11-23] MEDS ORDERED: MIDAZOLAM INJ 2 MG/2 ML VIAL (J2250) As Ordered (09:56)
[2017-11-23] MEDS: POVIDONE-IODINE 5% OPHTH PREP SOL 30ML As Ordered (10:25)
[2017-11-23] MEDS: MOXIFLOXACIN IN BSS 0.25MG/0.25ML INTRACAMERAL INJ (OR EYE ONLY)(J2280) As Ordered (10:26)
[2017-11-23] MEDS: TRIAMCINOLONE PRES FR 40 MG/ML 1ML(TRIESENCE)(OR EYE ONLY)(J3300 PER 1MG) As Ordered (10:26)
[2017-11-23] MEDS: LIDOCAINE 1% SDV 5 ML VIAL As Ordered (10:26)
[2017-11-23] MEDS: HEALON DUET (HEALON 10MG/ML 0.55ML & HEALON ENDOCOAT 30MG/ML 0.85ML) As Ordered (10:26)
[2017-11-23] MEDS: BSS with VANC/TOB/EPI for EYE CASES IR (10:26)
[2017-11-23] MEDS: AcetaZOLAMIDE 500 MG ER CAP PO (11:05)
== END 2017-11-23 11:22 | disposition home or self-care (01) ==
LOC: M SDC 07:53
DX: H25.9 Unspecified age-related cataract (principal); I25.10 Atherosclerotic heart disease of native coronary artery without angina pectoris; I25.2 Old myocardial infarction; Z79.82 Long term (current) use of aspirin; Z79.02 Long term (current) use of antithrombotics/antiplatelets; D64.9 Anemia, unspecified; Z98.61 Coronary angioplasty status; Z79.899 Other long term (current) drug therapy; Z85.3 Personal history of malignant neoplasm of breast; Z85.51 Personal history of malignant neoplasm of bladder; Z92.3 Personal history of irradiation; Z92.21 Personal history of antineoplastic chemotherapy
CPT/HCPCS: 66984

== ENCOUNTER 2017-12-02 08:03 | Day surgery (SDC) | payer OTHER ==
[~2017-12-02 08:03] MED LIST changes: +MIDAZOLAM INJ 2 MG/2 ML VIAL (J2250) As Ordered; -PHENYLEPHRINE HCL 10 % OPHTH. SOL 5ML OD; +fentaNYL 100 MCG/2 ML INJECTION (J3010) As Ordered
[2017-12-02] MEDS ORDERED: LIDOCAINE 1% MDV 20ML VIAL SQ (08:15)
[2017-12-02] MEDS: TROPICAMIDE 1% OPHTH SOLN 2ML OS (09:40)
[2017-12-02] MEDS: OFLOXACIN 0.3 % (OCUFLOX) OPTH SOL 5ML OS (09:40)
[2017-12-02] MEDS: CYCLOPENTOLATE 2% OPHTH SOLN 2ML BTL OS (09:40)
[2017-12-02] MEDS: LIDOCAINE 3.5 % 1ML OPHTH TOPICAL GEL OU (09:40)
[2017-12-02] MEDS: PHENYLEPHRINE 2.5% OPHTH SOL 2ML OS (09:40)
[2017-12-02] MEDS: PHENYLEPHRINE HCL 10 % OPHTH. SOL 5ML OS (09:40)
[2017-12-02] MEDS: POVIDONE-IODINE 5% OPHTH PREP SOL 30ML As Ordered (12:35)
[2017-12-02] MEDS: BSS with VANC/TOB/EPI for EYE CASES IR (12:42)
[2017-12-02] MEDS: TRIAMCINOLONE PRES FR 40 MG/ML 1ML(TRIESENCE)(OR EYE ONLY)(J3300 PER 1MG) As Ordered (12:42)
[2017-12-02] MEDS: MOXIFLOXACIN IN BSS 0.25MG/0.25ML INTRACAMERAL INJ (OR EYE ONLY)(J2280) As Ordered (12:42)
[2017-12-02] MEDS: LIDOCAINE 1% SDV 5 ML VIAL As Ordered (12:42)
[2017-12-02] MEDS: HEALON DUET (HEALON 10MG/ML 0.55ML & HEALON ENDOCOAT 30MG/ML 0.85ML) As Ordered (12:42)
[2017-12-02] MEDS: AcetaZOLAMIDE 500 MG ER CAP PO (13:25)
[2017-12-02] MEDS ORDERED: TRIMETHOBENZAMIDE 300 MG CAP PO (13:30)
== END 2017-12-02 13:45 | disposition home or self-care (01) ==
LOC: M SDC 08:03
DX: H25.9 Unspecified age-related cataract (principal); H57.03 Miosis; E78.2 Mixed hyperlipidemia; I25.10 Atherosclerotic heart disease of native coronary artery without angina pectoris; I25.2 Old myocardial infarction; Z79.01 Long term (current) use of anticoagulants; Z85.3 Personal history of malignant neoplasm of breast; Z98.61 Coronary angioplasty status; Z79.82 Long term (current) use of aspirin; Z79.899 Other long term (current) drug therapy; Z86.718 Personal history of other venous thrombosis and embolism
CPT/HCPCS: 66982

== ENCOUNTER 2018-02-04 17:26 | Emergency (ER) | payer OTHER ==
[2018-02-04] MEDS: METOPROLOL 5 MG/5 ML VIAL IV ×2 (18:55→19:20)
[2018-02-04] MEDS: FUROSEMIDE 40 MG/4 ML VIAL (J1940) IV (18:55)
[2018-02-04 19:01] LABS: BASO % 0.4 % (0.0-1.0); EOS # 0.3 10^3/uL (0.0-0.50); EOS % 5.1 % (0.0-3.0); HEMATOCRIT 37.8 % (36.0-47.0); HEMOGLOBIN 12.7 g/dl (12.0-15.5); IMMATURE GRANULOCYTE % 0.2 % (0-3.0); LYMPH # 1.3 10^3/uL (1.5-4.5); LYMPH % 23.2 % (24.0-44.0); MEAN CORPUSCULAR HEMOGLOBIN 29.7 pg (27.0-33.0); MEAN CORPUSCULAR HGB CONC 33.6 g/dl (32.0-36.5); MEAN CORPUSCULAR VOLUME 88.5 fl (80.0-96.0); MONO # 0.7 10^3/uL (0.0-0.8); NEUTROPHILS # 3.3 10^3/uL (1.8-7.7); NEUTROPHILS % 59.1 % (36.0-66.0); PLATELET COUNT, AUTOMATED 150 10^3/uL (150-450); RED BLOOD COUNT 4.27 10^6/uL (4.00-5.40); WHITE BLOOD COUNT 5.5 10^3/uL (4.0-10.0)
[2018-02-04 19:04] LABS: INR 1.31; PROTHROMBIN TIME 16.5 SECONDS (12.1-14.4)
[2018-02-04 19:12] LABS: ANION GAP 8 MEQ/L (8-16); BLOOD UREA NITROGEN 25 MG/DL (7-18); CALCIUM LEVEL 8.9 MG/DL (8.8-10.2); CARBON DIOXIDE LEVEL 24 MEQ/L (21-32); CHLORIDE LEVEL 106 MEQ/L (98-107); CK-MB VALUE MASS 1.3 NG/ML (<3.6); CPK CREATINE PHOSPHOKINASE 58 U/L (26-192); CREATININE FOR GFR 0.97 MG/DL (0.55-1.30); GLOMERULAR FILTRATION RATE 58.5 (>32); GLUCOSE, FASTING 101 MG/DL (70-100); MB/CK RELATIVE INDEX 2.24 (< OR =4); NT-PRO BNP 371 PG/ML (<450); POTASSIUM SERUM 3.9 MEQ/L (3.5-5.1); SODIUM LEVEL 138 MEQ/L (136-145); TROPONIN I < 0.02 NG/ML (< 0.10)
== END 2018-02-04 20:24 | disposition home or self-care (01) ==
LOC: M ED 17:26
DX: I11.9 Hypertensive heart disease without heart failure (principal); R51 Headache; R60.0 Localized edema; Z88.5 Allergy status to narcotic agent; Z91.048 Other nonmedicinal substance allergy status; Z91.018 Allergy to other foods; Z79.899 Other long term (current) drug therapy; Z79.82 Long term (current) use of aspirin; Z79.01 Long term (current) use of anticoagulants
CPT/HCPCS: J1940

== ENCOUNTER → 2018-03-12 | Outpatient (REF) | payer OTHER ==
[2018-03-12 13:22] LABS: APPEARANCE, URINE CLEAR (CLEAR); BACTERIA, URINE AUTO NEGATIVE (NEGATIVE); BILIRUBIN, URINE AUTO NEGATIVE (NEGATIVE); BLOOD, URINE BLOOD 1+ (NEGATIVE); COLOR, URINE STRAW (YELLOW); GLUCOSE, URINE (UA) AUTO NEGATIVE (NEGATIVE); KETONE, URINE AUTO NEGATIVE (NEGATIVE); LEUKOCYTE ESTERASE, URINE AUTO TRACE (NEGATIVE); MUCUS, URINE SMALL (NEGATIVE); NITRITE, URINE AUTO NEGATIVE (NEGATIVE); PROTEIN, URINE AUTO NEGATIVE (NEGATIVE); RBC, URINE AUTO 19 /HPF (0-3); SPECIFIC GRAVITY URINE AUTO 1.005 (1.002-1.035); SQUAMOUS EPITHELIAL CELL UR AU 0 /HPF (0-6); UROBILINOGEN, URINE AUTO 0.2 mg/dL (0.0-2.0); WBC, URINE AUTO 6 /HPF (0-3)
== END ==
LOC: M LAB REF 12:47
DX: C50.412 Malignant neoplasm of upper-outer quadrant of left female breast (principal); C67.0 Malignant neoplasm of trigone of bladder; C79.82 Secondary malignant neoplasm of genital organs
CPT/HCPCS: 81001

== ENCOUNTER → 2018-04-06 | Outpatient (CLI) | payer OTHER ==
[2018-04-06 13:30] LABS: BASO % 0.4 % (0.0-1.0); EOS # 0.2 10^3/uL (0.0-0.50); EOS % 4.8 % (0.0-3.0); HEMATOCRIT 38.1 % (36.0-47.0); HEMOGLOBIN 12.2 g/dl (12.0-15.5); IMMATURE GRANULOCYTE % 0.2 % (0-3.0); LYMPH # 1.2 10^3/uL (1.5-4.5); LYMPH % 26.5 % (24.0-44.0); MEAN CORPUSCULAR VOLUME 90.5 fl (80.0-96.0); MONO # 0.5 10^3/uL (0.0-0.8); MONO % 11.6 % (0.0-5.0); NEUTROPHILS # 2.6 10^3/uL (1.8-7.7); NEUTROPHILS % 56.5 % (36.0-66.0); PLATELET COUNT, AUTOMATED 145 10^3/uL (150-450); RED BLOOD COUNT 4.21 10^6/uL (4.00-5.40); RED CELL DISTRIBUTION WIDTH 14.7 % (11.5-14.5); WHITE BLOOD COUNT 4.6 10^3/uL (4.0-10.0)
[2018-04-06 15:41] LABS: ALBUMIN 3.1 GM/DL (3.2-5.2); ALBUMIN/GLOBULIN RATIO 0.97 (1.00-1.93); ALKALINE PHOSPHATASE 74 U/L (45-117); ALT/SGPT 19 U/L (12-78); ANION GAP 10 MEQ/L (8-16); AST/SGOT 20 U/L (7-37); BILIRUBIN,TOTAL 0.3 MG/DL (0.2-1.0); BLOOD UREA NITROGEN 22 MG/DL (7-18); CALCIUM LEVEL 8.9 MG/DL (8.8-10.2); CARBON DIOXIDE LEVEL 24 MEQ/L (21-32); CHLORIDE LEVEL 113 MEQ/L (98-107); CREATININE FOR GFR 0.91 MG/DL (0.55-1.30); FREE T4 1.03 NG/DL (0.76-1.46); GLOMERULAR FILTRATION RATE > 60.0 (>32); GLUCOSE, FASTING 112 MG/DL (70-100); POTASSIUM SERUM 4.7 MEQ/L (3.5-5.1); SODIUM LEVEL 147 MEQ/L (136-145); TOTAL PROTEIN 6.3 GM/DL (6.4-8.2)
[2018-04-06 23:26] LABS: ESTIMATED AVERAGE GLUCOSE 131 MG/DL (60-110); HEMOGLOBIN A1c 6.2 %
== END ==
LOC: M SMT 09:10
DX: Z51.81 Encounter for therapeutic drug level monitoring (principal); E03.9 Hypothyroidism, unspecified; E11.9 Type 2 diabetes mellitus without complications; Z85.51 Personal history of malignant neoplasm of bladder
CPT/HCPCS: 84443

== ENCOUNTER → 2018-04-06 | Outpatient (CLI) | payer OTHER ==
[2018-04-06 13:34] LABS: HEMATOCRIT 38.7 % (36.0-47.0); HEMOGLOBIN 12.4 g/dl (12.0-15.5); MEAN CORPUSCULAR HEMOGLOBIN 29.5 pg (27.0-33.0); MEAN CORPUSCULAR VOLUME 91.9 fl (80.0-96.0); PLATELET COUNT, AUTOMATED 143 10^3/uL (150-450); RED BLOOD COUNT 4.21 10^6/uL (4.00-5.40); RED CELL DISTRIBUTION WIDTH 14.7 % (11.5-14.5); WHITE BLOOD COUNT 4.6 10^3/uL (4.0-10.0)
[2018-04-06 14:18] LABS: ANION GAP 8 MEQ/L (8-16); BLOOD UREA NITROGEN 23 MG/DL (7-18); CARBON DIOXIDE LEVEL 25 MEQ/L (21-32); CHLORIDE LEVEL 112 MEQ/L (98-107); CREATININE FOR GFR 0.96 MG/DL (0.55-1.30); GLOMERULAR FILTRATION RATE 59.2 (>32); GLUCOSE, FASTING 114 MG/DL (70-100); POTASSIUM SERUM 4.7 MEQ/L (3.5-5.1); SODIUM LEVEL 145 MEQ/L (136-145)
== END ==
LOC: M SMT 09:07
DX: Z85.51 Personal history of malignant neoplasm of bladder (principal)

== ENCOUNTER 2018-05-29 12:30 | Emergency (ER) | payer OTHER, MEDICAID ==
[2018-05-29] MEDS: ONDANSETRON 4MG/2ML VIAL (J2405) IV (12:47)
[2018-05-29 13:04] LABS: BASO % 0.5 % (0.0-1.0); EOS # 0.1 10^3/uL (0.0-0.50); EOS % 1.7 % (0.0-3.0); HEMATOCRIT 37.7 % (36.0-47.0); HEMOGLOBIN 12.3 g/dl (12.0-15.5); IMMATURE GRANULOCYTE % 0.3 % (0-3.0); LYMPH # 1.1 10^3/uL (1.5-4.5); MEAN CORPUSCULAR HEMOGLOBIN 29.3 pg (27.0-33.0); MEAN CORPUSCULAR HGB CONC 32.6 g/dl (32.0-36.5); MEAN CORPUSCULAR VOLUME 89.8 fl (80.0-96.0); MONO # 0.5 10^3/uL (0.0-0.8); MONO % 7.7 % (0.0-5.0); NEUTROPHILS # 4.5 10^3/uL (1.8-7.7); NEUTROPHILS % 71.8 % (36.0-66.0); PLATELET COUNT, AUTOMATED 145 10^3/uL (150-450); RED CELL DISTRIBUTION WIDTH 14.5 % (11.5-14.5); WHITE BLOOD COUNT 6.3 10^3/uL (4.0-10.0)
[2018-05-29] MEDS: LABETALOL HCL 100 MG/20 ML VIAL IV (13:06)
[2018-05-29] MEDS: NS 1,000 ML IV (13:06)
[2018-05-29 13:14] LABS: INR 1.19; PROTHROMBIN TIME 15.3 SECONDS (12.1-14.4)
[2018-05-29 13:36] LABS: CPK CREATINE PHOSPHOKINASE 94 U/L (26-192); MB/CK RELATIVE INDEX 2.34 (< OR =4); TROPONIN I < 0.02 NG/ML (< 0.10)
[2018-05-29 14:45] LABS: ALBUMIN 3.3 GM/DL (3.2-5.2); ALBUMIN/GLOBULIN RATIO 0.89 (1.00-1.93); ALKALINE PHOSPHATASE 90 U/L (45-117); ALT/SGPT 23 U/L (12-78); ANION GAP 8 MEQ/L (8-16); AST/SGOT 27 U/L (7-37); BILIRUBIN,DIRECT < 0.1 MG/DL (0.0-0.2); BILIRUBIN,TOTAL 0.4 MG/DL (0.2-1.0); BLOOD UREA NITROGEN 20 MG/DL (7-18); CALCIUM LEVEL 9.2 MG/DL (8.8-10.2); CARBON DIOXIDE LEVEL 25 MEQ/L (21-32); CHLORIDE LEVEL 109 MEQ/L (98-107); GLOMERULAR FILTRATION RATE > 60.0 (>32); GLUCOSE, FASTING 147 MG/DL (70-100); POTASSIUM SERUM 3.9 MEQ/L (3.5-5.1); SODIUM LEVEL 142 MEQ/L (136-145)
== END 2018-05-29 16:03 | disposition home or self-care (01) ==
LOC: M ED 12:30
DX: R42 Dizziness and giddiness (principal); R11.2 Nausea with vomiting, unspecified; R53.1 Weakness; R94.31 Abnormal electrocardiogram [ECG] [EKG]; I51.9 Heart disease, unspecified; Z79.82 Long term (current) use of aspirin; Z79.01 Long term (current) use of anticoagulants; Z79.899 Other long term (current) drug therapy; Z85.3 Personal history of malignant neoplasm of breast; Z95.5 Presence of coronary angioplasty implant and graft; Z90.49 Acquired absence of other specified parts of digestive tract; Z98.890 Other specified postprocedural states; Z88.5 Allergy status to narcotic agent; Z91.02 Food additives allergy status; Z91.048 Other nonmedicinal substance allergy status
CPT/HCPCS: J2405

== ENCOUNTER → 2018-09-24 | Outpatient (CLI) | payer MEDICARE ==
[~2018-09-24] MED LIST changes: +/AMLO25TA PO; +/OCUVTA PO; +/ONDA4TA PO; +/PROC10TA PO; +ACET50TA PO; +ACET650T12 PO; -ACETAMINOPHEN 325 MG TAB PO; +ARTH1TAB PO; +ASPI1TAB PO; +ATEN25TA PO; +AUGM500T34 PO; +BRIL90TA PO; +CALC-136 PO; +CIPR500T3 PO; +D 202000 PO; +DICL PO; +DYAZCA PO; +EYE VITAMIN PO; +FLAG500T PO; +FOLITAB11 PO; +HCTZ25TA PO; +HYDR-3713 PO; +IRON CR PO; +IRON325T PO; +LEVO500T PO; +LEVO750T PO; +LIPI20TA PO; +MACR100C43 PO; +MAG400TA PO; +MAGN400C2 PO; +MAGN64TASA PO; +MAGNE; -MIDAZOLAM INJ 2 MG/2 ML VIAL (J2250) As Ordered; +MOM30SS PO; +MSIR30TA PO; +MYLASSUD PO; +OMEP40CA2 PO; +PRIL20CA9 PO; +PROHANCE 279.3MG/ML 15ML VIAL (A9576) As Ordered ONE; +TENO25TA PO; +VITA100L PO; +VITA200015 PO; +VITA500T3 PO; +VITMTA PO; +XARE10TA PO; +XARE15TA PO; +XARE20TA PO; +ZOFR4TAB14 PO; +ZOFR4TAB16 PO; +[UNRECOGNIZED DRUG - REMARK]; +aspirin OR; +calcium OR; -fentaNYL 100 MCG/2 ML INJECTION (J3010) As Ordered; +magnesium OR; +nitrostat SL
--- NOTE | 2018-09-24 17:07 | REP ---
MR Brain without and with contrast History: Headache Contrast: ProHance 10 ml Comparison: CT 05/29/2018 Increased signal intensity on T2-weighted images is present in the posterior right temporal lobe and right occipital lobe. There is dilatation of the overlying cortical sulci. This represents an old infarction. Areas of decreased signal intensity on T2-weighted images are present in the periventricular white matter. This represents small-vessel ischemic disease. There is no intraparenchymal hemorrhage, acute infarct , mass or midline shift. There is no abnormal enhancement. The ventricular system and cortical sulci are dilated consistent with mild volume loss. There is no extra cerebral collection. The sinuses are clear. Impression 1. 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 2. Small vessel ischemic disease. 3. Mild volume loss. Electronically Signed by Manny Kee MD 09/24/2018 04:58 P
== END ==
LOC: M RAD 14:46
PROVIDERS: ATTEND Internal Medicine Hematology & Oncology
DX: I67.9 Cerebrovascular disease, unspecified (principal); R51 Headache; R42 Dizziness and giddiness; R43.9 Unspecified disturbances of smell and taste; Z86.73 Personal history of transient ischemic attack (TIA), and cerebral infarction without residual deficits
CPT/HCPCS: 70553; A9576

== ENCOUNTER → 2018-10-25 | Outpatient (CLI) | payer MEDICARE ==
[~2018-10-25] MED LIST changes: -PROHANCE 279.3MG/ML 15ML VIAL (A9576) As Ordered ONE
[2018-10-25 10:14] LABS: ALBUMIN 3.2 GM/DL (3.2-5.2); BILIRUBIN,DIRECT 0.1 MG/DL (0.0-0.2); BILIRUBIN,TOTAL 0.4 MG/DL (0.2-1.0); CALCIUM LEVEL 8.9 MG/DL (8.8-10.2); CHOLESTEROL RISK RATIO 2.872 (<5); CREATININE FOR GFR 1.1 MG/DL (0.55-1.30); GLOMERULAR FILTRATION RATE 50.5 (>32); TOTAL PROTEIN 6.4 GM/DL (6.4-8.2)
== END ==
LOC: M SMT 08:08
PROVIDERS: ATTEND Internal Medicine Cardiovascular Disease
DX: I25.10 Atherosclerotic heart disease of native coronary artery without angina pectoris (principal); I82.90 Acute embolism and thrombosis of unspecified vein; E78.5 Hyperlipidemia, unspecified

== ENCOUNTER → 2019-01-18 | Outpatient (CLI) | payer MEDICARE ==
[~2019-01-18] MED LIST changes: -/AMLO25TA PO; -/OCUVTA PO; -/ONDA4TA PO; -/PROC10TA PO; -ACET50TA PO; -ASPI1TAB PO; +ASPI81TA26 PO; -DICL PO; +DICL1CAP2 PO; +MAPA500T17 PO; +NORV2TAB PO; +ONDA-1 PO; +PROC1TAB3 PO; +PROS2TAB2 PO
[2019-01-18 19:09] LABS: HEMATOCRIT 37.8 % (36.0-47.0); HEMOGLOBIN 12.1 g/dl (12.0-15.5); MEAN CORPUSCULAR VOLUME 90.6 fl (80.0-96.0); PLATELET COUNT, AUTOMATED 148 10^3/uL (150-450); RED BLOOD COUNT 4.17 10^6/uL (4.00-5.40); WHITE BLOOD COUNT 6.1 10^3/uL (4.0-10.0)
[2019-01-18 19:30] LABS: ALBUMIN 3.1 GM/DL (3.2-5.2); BILIRUBIN,TOTAL 0.3 MG/DL (0.2-1.0); CALCIUM LEVEL 9.3 MG/DL (8.8-10.2); CREATININE FOR GFR 0.96 MG/DL (0.55-1.30); GLOMERULAR FILTRATION RATE 59.1 (>32); POTASSIUM SERUM 4.5 MEQ/L (3.5-5.1); TOTAL PROTEIN 6.5 GM/DL (6.4-8.2)
== END ==
LOC: M SMT 13:33
PROVIDERS: ATTEND Internal Medicine Cardiovascular Disease
DX: I82.90 Acute embolism and thrombosis of unspecified vein (principal); E78.5 Hyperlipidemia, unspecified; I10 Essential (primary) hypertension; I25.10 Atherosclerotic heart disease of native coronary artery without angina pectoris

== ENCOUNTER → 2019-03-14 | Outpatient (CLI) | payer MEDICARE ==
[~2019-03-14] MED LIST changes: +CYAN500T8 PO; +METO25TA4 PO; -VITA500T3 PO
--- NOTE | 2019-03-15 08:55 | REP ---
Left hip: Two views. History: Pain in the left hip. Findings: AP and frog-leg views of the left hip demonstrate moderate osteoarthritic spurring in the acetabulum and mild spurring of the femoral head. There is spurring and the soft tissue calcification at the greater trochanter. Some vascular calcifications noted. Femoral head is smooth and rounded. Joint spaces preserved. Impression: Moderate left hip osteoarthritis. Tendon insertion site spurring at the greater trochanter and iliac crest. No acute abnormality. Electronically Signed by Laron Paulino MD 03/15/2019 07:27 P
== END ==
LOC: M ADAMS 16:52
PROVIDERS: ATTEND Physician Assistant
DX: M16.12 Unilateral primary osteoarthritis, left hip (principal); M25.552 Pain in left hip

== ENCOUNTER → 2019-04-08 | Outpatient (REF) | payer MEDICARE ==
[~2019-04-08] MED LIST changes: -METO25TA4 PO
== END ==
LOC: M LAB REF 16:51
PROVIDERS: ATTEND Internal Medicine Nephrology
DX: N39.0 Urinary tract infection, site not specified (principal)

== ENCOUNTER → 2019-04-18 | Outpatient (REF) | payer MEDICARE, MEDICAID ==
[~2019-04-18] MED LIST changes: +METO25TA4 PO
== END ==
LOC: M SMT 17:34
PROVIDERS: ATTEND Nurse Practitioner Women's Health
DX: Z85.51 Personal history of malignant neoplasm of bladder (principal)
CPT/HCPCS: 88108; G0463

== ENCOUNTER 2019-05-03 13:40 | Emergency (ER) | payer MEDICAID, MEDICARE ==
[~2019-05-03] VITALS: Ht 157.5 cm; Wt 86.4 kg
[~2019-05-03 13:40] MED LIST changes: -METO25TA4 PO
[2019-05-03] MEDS ORDERED: NS 1,000 ML IV SCH (14:11)
[2019-05-03] MEDS ORDERED: ASPIRIN 81 MG CHEW TABLET PO ONE (14:15)
[2019-05-03 14:25] LABS: VENOUS BASE EXCESS -3.2 (-2.0-2.0); VENOUS HCO3 23.8 MEQ/L (23.0-27.0); VENOUS O2 SATURATION 66.8 % (60.0-80.0); VENOUS PARTIAL PRESSURE CO2 50.1 mmHg (38.0-50.0); VENOUS PARTIAL PRESSURE O2 38.1 mmHg (30.0-50.0); VENOUS PH 7.294 UNITS (7.330-7.430); VENOUS STANDARD HCO3 21.2 MEQ/L; VENOUS TOTAL CO2 25.3 MEQ/L (24.0-28.0)
[2019-05-03 14:30] LABS: BASO % 0.6 % (0.0-1.0); EOS # 0.1 10^3/uL (0.0-0.5); EOS % 2.3 % (0.0-3.0); HEMOGLOBIN 12.9 g/dl (12.0-15.5); LYMPH # 1.3 10^3/uL (1.5-5.0); MEAN CORPUSCULAR HEMOGLOBIN 29.4 pg (27.0-33.0); MEAN CORPUSCULAR HGB CONC 33.1 g/dl (32.0-36.5); MEAN CORPUSCULAR VOLUME 88.8 fl (80.0-96.0); MONO # 0.6 10^3/uL (0.0-0.8); MONO % 10.8 % (0.0-5.0); NEUTROPHILS # 3.2 10^3/uL (1.5-8.5); NEUTROPHILS % 61.1 % (36.0-66.0); PLATELET COUNT, AUTOMATED 148 10^3/uL (150-450); RED BLOOD COUNT 4.39 10^6/uL (4.00-5.40); WHITE BLOOD COUNT 5.2 10^3/uL (4.0-10.0)
[2019-05-03 14:47] LABS: INR 1.79; PROTHROMBIN TIME 20.6 SECONDS (11.8-14.0)
[2019-05-03 15:00] LABS: ALBUMIN 3.1 GM/DL (3.2-5.2); BILIRUBIN,DIRECT 0.1 MG/DL (0.0-0.2); BILIRUBIN,TOTAL 0.3 MG/DL (0.2-1.0); BLOOD UREA NITROGEN 21 MG/DL (7-18); CALCIUM LEVEL 9.4 MG/DL (8.8-10.2); CARBON DIOXIDE LEVEL 25 MEQ/L (21-32); CHLORIDE LEVEL 107 MEQ/L (98-107); CPK CREATINE PHOSPHOKINASE 64 U/L (26-192); CREATININE FOR GFR 0.99 MG/DL (0.55-1.30); GLOMERULAR FILTRATION RATE 56.9 (>32); GLUCOSE, FASTING 137 MG/DL (70-100); MB/CK RELATIVE INDEX 3.12 (< OR =4); POTASSIUM SERUM 4.1 MEQ/L (3.5-5.1); SODIUM LEVEL 140 MEQ/L (136-145); TOTAL PROTEIN 6.9 GM/DL (6.4-8.2); TROPONIN I < 0.02 NG/ML (< 0.10)
[2019-05-03] MEDS ORDERED: METO25TA4 PO (15:51)
[2019-05-03] MEDS ORDERED: XARE15TA PO (15:51)
--- NOTE | 2019-05-03 15:54 | REP ---
CHEST, PORTABLE: AP portable view of the chest is performed and compared to prior study of 05/29/2018. There is no acute infiltrate. There is mild elevation of the right hemidiaphragm, unchanged. The heart is upper limits of normal in size. There is some tortuosity of the thoracic aorta. The mediastinal silhouette is unchanged. Metallic clips are seen in the left axillary region. IMPRESSION: No acute infiltrate. Electronically Signed by Derrell Chiu MD 05/04/2019 04:30 P
[2019-05-03 15:55] VITALS: BP 131/86
[2019-05-03] MEDS ORDERED: METOPROLOL TART 25 MG TABLET PO ONE (16:00)
[2019-05-03 16:24] VITALS: BP 131/86
--- NOTE | 2019-05-04 07:35 | ECGEPIP ---
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
== END 2019-05-03 16:25 | disposition home or self-care (01) ==
LOC: M ED 13:40
DX: I48.91 Unspecified atrial fibrillation (principal); R06.02 Shortness of breath; I11.9 Hypertensive heart disease without heart failure; E11.9 Type 2 diabetes mellitus without complications; Z95.1 Presence of aortocoronary bypass graft; Z88.5 Allergy status to narcotic agent; Z91.048 Other nonmedicinal substance allergy status; Z91.018 Allergy to other foods; Z79.899 Other long term (current) drug therapy; Z79.01 Long term (current) use of anticoagulants; Z79.82 Long term (current) use of aspirin

== ENCOUNTER → 2019-06-17 | Outpatient (CLI) | payer MEDICARE ==
[~2019-06-17] MED LIST changes: +METO25TA4 PO
--- NOTE | 2019-06-17 15:26 | REP ---
HISTORY: Wrist pain. COMPARISON: None. The bones are demineralized. Degenerative change is seen throughout the wrist. There are calcifications in the region of the triangular fibrocartilage complex. There is no evidence of an acute fracture. IMPRESSION: Chronic changes as described above. Electronically Signed by Christian Mccoy DO 06/17/2019 03:29 P
== END ==
LOC: M ADAMS 11:30
PROVIDERS: ATTEND Physician Assistant Medical
DX: M19.031 Primary osteoarthritis, right wrist (principal); M85.841 Other specified disorders of bone density and structure, right hand; M25.531 Pain in right wrist

== ENCOUNTER 2019-07-03 18:39 | Emergency (ER) | payer MEDICARE ==
[~2019-07-03] VITALS: Ht 157.5 cm; Wt 85.0 kg
[2019-07-03] MEDS ORDERED: ATEN25TA PO (18:51)
[2019-07-03] MEDS ORDERED: LABETALOL HCL 100 MG/20 ML VIAL IV STA (19:08)
[2019-07-03] MEDS ORDERED: ASPIRIN 81 MG CHEW TABLET PO ONE (19:15)
[2019-07-03 19:19] LABS: BASO % 0.3 % (0.0-1.0); EOS # 0.1 10^3/uL (0.0-0.5); EOS % 1.2 % (0.0-3.0); HEMATOCRIT 38.7 % (36.0-47.0); HEMOGLOBIN 12.4 g/dl (12.0-15.5); LYMPH # 1.5 10^3/uL (1.5-5.0); MEAN CORPUSCULAR HEMOGLOBIN 28.4 pg (27.0-33.0); MEAN CORPUSCULAR VOLUME 88.8 fl (80.0-96.0); MONO # 0.4 10^3/uL (0.0-0.8); MONO % 6.8 % (0.0-5.0); NEUTROPHILS # 3.9 10^3/uL (1.5-8.5); NEUTROPHILS % 66.4 % (36.0-66.0); PLATELET COUNT, AUTOMATED 147 10^3/uL (150-450); RED BLOOD COUNT 4.36 10^6/uL (4.00-5.40); WHITE BLOOD COUNT 5.9 10^3/uL (4.0-10.0)
[2019-07-03 19:23] VITALS: BP 166/75
[2019-07-03 19:28] LABS: ALBUMIN 3.5 GM/DL (3.2-5.2); ALT/SGPT 20 U/L (12-78); BILIRUBIN,DIRECT 0.1 MG/DL (0.0-0.2); BILIRUBIN,TOTAL 0.3 MG/DL (0.2-1.0); BLOOD UREA NITROGEN 23 MG/DL (7-18); CALCIUM LEVEL 9.4 MG/DL (8.8-10.2); CARBON DIOXIDE LEVEL 26 MEQ/L (21-32); CHLORIDE LEVEL 105 MEQ/L (98-107); CPK CREATINE PHOSPHOKINASE 82 U/L (26-192); CREATININE FOR GFR 1.13 MG/DL (0.55-1.30); GLOMERULAR FILTRATION RATE 48.8 (>32); GLUCOSE, FASTING 134 MG/DL (70-100); MB/CK RELATIVE INDEX 2.44 (< OR =4); POTASSIUM SERUM 3.9 MEQ/L (3.5-5.1); SODIUM LEVEL 138 MEQ/L (136-145); TOTAL PROTEIN 7.1 GM/DL (6.4-8.2); TROPONIN I < 0.02 NG/ML (< 0.10)
[2019-07-03 19:42] VITALS: BP 146/83
--- NOTE | 2019-07-04 07:27 | ECGEPIP ---
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
== END 2019-07-03 20:06 | disposition home or self-care (01) ==
LOC: EDBD 18:39 → M ED 18:39
DX: I10 Essential (primary) hypertension (principal); R00.1 Bradycardia, unspecified; I48.91 Unspecified atrial fibrillation; Z95.0 Presence of cardiac pacemaker; Z79.82 Long term (current) use of aspirin; Z79.899 Other long term (current) drug therapy; Z91.018 Allergy to other foods; Z88.5 Allergy status to narcotic agent; Z91.89 Other specified personal risk factors, not elsewhere classified

== ENCOUNTER → 2019-08-05 | Outpatient (REF) | payer MEDICARE | LOC: M LAB REF 16:21 | PROVIDERS: ATTEND Physician Assistant Medical | DX: J02.9 Acute pharyngitis, unspecified (principal) ==

== ENCOUNTER → 2019-09-21 | Outpatient (CLI) | payer MEDICARE ==
[2019-09-21 18:53] LABS: BLOOD UREA NITROGEN 17 MG/DL (7-18); CALCIUM LEVEL 9.2 MG/DL (8.8-10.2); CARBON DIOXIDE LEVEL 29 MEQ/L (21-32); CHLORIDE LEVEL 99 MEQ/L (98-107); CREATININE FOR GFR 0.91 MG/DL (0.55-1.30); GLOMERULAR FILTRATION RATE > 60.0 (>32); GLUCOSE, FASTING 99 MG/DL (70-100); SODIUM LEVEL 133 MEQ/L (136-145)
== END ==
LOC: M PLALAB 15:46
PROVIDERS: ATTEND Physician Assistant
DX: N18.9 Chronic kidney disease, unspecified (principal)

== ENCOUNTER → 2019-10-10 | Outpatient (CLI) | payer MEDICARE ==
[~2019-10-10] MED LIST changes: +CALC500T52 PO; +NITR0.4S14 SL; +VITA1CHW7 PO
--- NOTE | 2019-10-11 02:50 | REP ---
Clinical: Trauma. Fall. Technique: AP, lateral, bilateral oblique and sunrise views of the right knee. Findings: Advanced tricompartmental osteoarthritic degenerative changes are appreciated including joint space narrowing, chondrocalcinosis, and osteophytosis. Mild anterior swelling cannot be excluded. No obvious acute fracture or dislocation identified. No definite effusion. Impression: Advanced tricompartmental osteoarthritic changes. No obvious acute fracture or dislocation. Electronically Signed by Rome Ruff MD 10/11/2019 02:42 A
== END ==
LOC: M ADAMS 11:06
PROVIDERS: ATTEND Physician Assistant
DX: S80.01XA Contusion of right knee, initial encounter (principal); W18.30XA Fall on same level, unspecified, initial encounter; Y92.9 Unspecified place or not applicable

== ENCOUNTER → 2019-11-21 | Outpatient (REF) | payer MEDICARE ==
[2019-11-21 14:29] LABS: BASO % 0.6 % (0.0-1.0); EOS # 0.2 10^3/uL (0.0-0.5); HEMATOCRIT 38.6 % (36.0-47.0); HEMOGLOBIN 12.5 g/dl (12.0-15.5); LYMPH # 1.6 10^3/uL (1.5-5.0); LYMPH % 30.7 % (24.0-44.0); MEAN CORPUSCULAR HEMOGLOBIN 28.8 pg (27.0-33.0); MEAN CORPUSCULAR HGB CONC 32.4 g/dl (32.0-36.5); MEAN CORPUSCULAR VOLUME 88.9 fl (80.0-96.0); MONO # 0.6 10^3/uL (0.0-0.8); MONO % 11.4 % (0.0-5.0); NEUTROPHILS # 2.9 10^3/uL (1.5-8.5); NEUTROPHILS % 54.1 % (36.0-66.0); PLATELET COUNT, AUTOMATED 144 10^3/uL (150-450); RED BLOOD COUNT 4.34 10^6/uL (4.00-5.40); WHITE BLOOD COUNT 5.3 10^3/uL (4.0-10.0)
[2019-11-21 14:41] LABS: ALBUMIN 3.2 GM/DL (3.2-5.2); BILIRUBIN,TOTAL 0.4 MG/DL (0.2-1.0); CALCIUM LEVEL 9.7 MG/DL (8.8-10.2); CREATININE FOR GFR 1.13 MG/DL (0.55-1.30); FREE T4 1.01 NG/DL (0.76-1.46); GLOMERULAR FILTRATION RATE 48.8 (>32); POTASSIUM SERUM 4.8 MEQ/L (3.5-5.1); THYROID STIMULATING HORMONE 3.56 uIU/ML (0.358-3.740); TOTAL PROTEIN 6.6 GM/DL (6.4-8.2)
[2019-11-21 16:02] LABS: HEMOGLOBIN A1c 5.8 %
== END ==
LOC: M LABDRWAD 12:19
PROVIDERS: ATTEND Physician Assistant
DX: E11.22 Type 2 diabetes mellitus with diabetic chronic kidney disease (principal); E03.9 Hypothyroidism, unspecified; R60.0 Localized edema

== ENCOUNTER → 2019-12-05 | Outpatient (REF) | payer MEDICARE ==
[2019-12-05 19:28] LABS: BASO % 0.5 % (0.0-1.0); EOS # 0.2 10^3/uL (0.0-0.5); EOS % 3.1 % (0.0-3.0); HEMATOCRIT 38.2 % (36.0-47.0); HEMOGLOBIN 12.3 g/dl (12.0-15.5); LYMPH # 1.9 10^3/uL (1.5-5.0); LYMPH % 32.6 % (24.0-44.0); MEAN CORPUSCULAR HEMOGLOBIN 28.5 pg (27.0-33.0); MEAN CORPUSCULAR HGB CONC 32.2 g/dl (32.0-36.5); MEAN CORPUSCULAR VOLUME 88.4 fl (80.0-96.0); MONO # 0.6 10^3/uL (0.0-0.8); MONO % 10.9 % (0.0-5.0); NEUTROPHILS # 3.1 10^3/uL (1.5-8.5); NEUTROPHILS % 52.6 % (36.0-66.0); PLATELET COUNT, AUTOMATED 136 10^3/uL (150-450); RED BLOOD COUNT 4.32 10^6/uL (4.00-5.40); WHITE BLOOD COUNT 5.9 10^3/uL (4.0-10.0)
[2019-12-05 19:44] LABS: ALBUMIN 3.3 GM/DL (3.2-5.2); BILIRUBIN,TOTAL 0.4 MG/DL (0.2-1.0); CALCIUM LEVEL 9.2 MG/DL (8.8-10.2); GLOMERULAR FILTRATION RATE 56.2 (>32); POTASSIUM SERUM 4.4 MEQ/L (3.5-5.1); TOTAL PROTEIN 6.6 GM/DL (6.4-8.2)
== END ==
LOC: M LABDRWAD 17:16
PROVIDERS: ATTEND Internal Medicine Hematology
DX: C50.919 Malignant neoplasm of unspecified site of unspecified female breast (principal)

== ENCOUNTER → 2020-01-06 | Outpatient (REF) | payer MEDICARE | LOC: M LAB REF 16:53 | PROVIDERS: ATTEND Nurse Practitioner Family | DX: N20.0 Calculus of kidney (principal) ==

== ENCOUNTER → 2020-05-22 | Outpatient (REF) | payer MEDICARE ==
[~2020-05-22] MED LIST changes: +ACET325C5 PO; +QC A650T3 PO
== END ==
LOC: M SMT 17:18
PROVIDERS: ATTEND Nurse Practitioner Women's Health
DX: Z85.51 Personal history of malignant neoplasm of bladder (principal)
CPT/HCPCS: 88108; G0463

== ENCOUNTER 2020-05-27 21:38 | Emergency (ER) | payer MEDICARE ==
[~2020-05-27] VITALS: Ht 157.5 cm; Wt 85.2 kg
[~2020-05-27 21:38] MED LIST changes: -ACET325C5 PO; -QC A650T3 PO
[2020-05-27] MEDS ORDERED: QC A650T3 PO (21:45)
[2020-05-27] MEDS ORDERED: hydrALAZINE 20MG/ML 1ML VIAL (J0360 PER 20MG) IV ONE (22:15)
[2020-05-27 22:33] VITALS: BP 179/83
[2020-05-27 22:38] LABS: BASO % 0.4 % (0.0-1.0); EOS # 0.2 10^3/uL (0.0-0.5); EOS % 3.5 % (0.0-3.0); HEMATOCRIT 35.4 % (36.0-47.0); HEMOGLOBIN 11.4 g/dl (12.0-15.5); LYMPH # 1.7 10^3/uL (1.5-5.0); LYMPH % 37.1 % (24.0-44.0); MEAN CORPUSCULAR HEMOGLOBIN 28.3 pg (27.0-33.0); MEAN CORPUSCULAR HGB CONC 32.2 g/dl (32.0-36.5); MEAN CORPUSCULAR VOLUME 87.8 fl (80.0-96.0); MONO # 0.7 10^3/uL (0.0-0.8); MONO % 14.7 % (0.0-5.0); NEUTROPHILS % 44.1 % (36.0-66.0); PLATELET COUNT, AUTOMATED 131 10^3/uL (150-450); RED BLOOD COUNT 4.03 10^6/uL (4.00-5.40); WHITE BLOOD COUNT 4.6 10^3/uL (4.0-10.0)
--- NOTE | 2020-05-27 22:56 | REPVR ---
PROCEDURE INFORMATION: Exam: CT Head Without Contrast Exam date and time: 05/27/2020 10:23 PM Age: 85 years old Clinical indication: Pain; Headache; Additional info: Headache, hypertension TECHNIQUE: Imaging protocol: Computed tomography of the head without contrast. Radiation optimization: All CT scans at this facility use at least one of these dose optimization techniques: automated exposure control; mA and/or kV adjustment per patient size (includes targeted exams where dose is matched to clinical indication); or iterative reconstruction. COMPARISON: CT Head without contrast 05/29/2018 1:15 PM FINDINGS: Brain: Global cerebral atrophy is consistent with patient's age. Decreased attenuation within the white matter tracts of both cerebral hemispheres is nonspecific but typically seen with small vessel disease/chronic white matter ischemic changes of aging. Old right ORAL AND MAXILLOFACIAL SURGEON distribution infarct, unchanged. Tiny foci of increased attenuation in the region of the foramen of [place] (axial image numeral 16 of series 201) is likely secondary to calcified choroid or vessels. A tiny bleed cannot be completely excluded. No intraparenchymal hemorrhage or mass effect is seen. Cerebral ventricles: No ventriculomegaly. Bones/joints: Unremarkable. No acute fracture. Paranasal sinuses: Visualized sinuses are unremarkable. No fluid levels. Mastoid air cells: Visualized mastoid air cells are well aerated. Soft tissues: Unremarkable. IMPRESSION: 1. Tiny foci of increased attenuation in the region of the foramen of [place]ro is likely secondary to calcified choroid plexus or vessels. A tiny bleed cannot be completely excluded however. 2. Global cerebral atrophy and small vessel disease/chronic white-matter ischemic changes of aging. Electronically signed by: Allen Almonte On 05/27/2020 22:56:59 PM
[2020-05-27 23:03] LABS: BLOOD UREA NITROGEN 15 MG/DL (7-18); CALCIUM LEVEL 8.9 MG/DL (8.8-10.2); CARBON DIOXIDE LEVEL 28 MEQ/L (21-32); CHLORIDE LEVEL 101 MEQ/L (98-107); CK-MB VALUE MASS 2.3 NG/ML (<3.6); CPK CREATINE PHOSPHOKINASE 81 U/L (26-192); CREATININE FOR GFR 0.96 MG/DL (0.55-1.30); GLOMERULAR FILTRATION RATE 58.8 (>32); GLUCOSE, FASTING 110 MG/DL (70-100); MB/CK RELATIVE INDEX 2.84 (< OR =4); SODIUM LEVEL 135 MEQ/L (136-145); TROPONIN I < 0.02 NG/ML (< 0.10)
--- NOTE | 2020-05-27 23:33 | REPVR ---
PROCEDURE INFORMATION: Exam: XR Chest, 1 View Exam date and time: 05/27/2020 10:13 PM Age: 85 years old Clinical indication: Chest pain TECHNIQUE: Imaging protocol: XR of the chest Views: 1 view. COMPARISON: CR PORTABLE CHEST X-RAY 2019-05-03 14:22 FINDINGS: Tubes, catheters and devices: Left axillary dissection clips. Lungs: No focal airspace consolidation. Pleural space: Unremarkable. No pleural effusion. No pneumothorax. Heart/Mediastinum: Unremarkable. No cardiomegaly. Bones/joints: Unremarkable. IMPRESSION: No focal airspace consolidation. Electronically signed by: Deng Cruz On 05/27/2020 23:33:26 PM
--- NOTE | 2020-05-28 02:21 | REPVR ---
PROCEDURE INFORMATION: Exam: MR Head Without Contrast Exam date and time: 05/28/2020 11:39 PM Age: 85 years old Clinical indication: Pain; Headache not specified; Additional info: Headache, HTN, hyperdensity on CT TECHNIQUE: Imaging protocol: MR of the head without contrast. COMPARISON: MRI-Brain W/O FOLL BY WITH 2018-09-24 15:40 FINDINGS: Brain: No brain parenchymal diffusion restriction to suggest acute ischemia or infarction. Scattered chronic appearing lacunae in the deep randolph structures and/or periventricular white matter. Moderate to severe cerebral volume loss. Mild periventricular chronic FLAIR hyperintense white matter disease. Senescent calcification within the globus pallidus. Cerebral ventricles: Volume loss related ventriculomegaly. Bones/joints: Unremarkable. Paranasal sinuses: Normal as visualized. No acute sinusitis. Mastoid air cells: Normal as visualized. No mastoid effusion. Orbits: Unremarkable. Soft tissues: Unremarkable. IMPRESSION: Age related changes. No evidence for acute abnormality or hemorrhage. Electronically signed by: Deng Cruz On 05/28/2020 02:21:03 AM
[2020-05-28 02:30] VITALS: BP 150/76
--- NOTE | 2020-05-28 02:32 | REPVR ---
PROCEDURE INFORMATION: Exam: MR Angiogram Head Without Contrast, Arteries Exam date and time: 05/28/2020 11:39 PM Age: 85 years old Clinical indication: Pain; Headache; Additional info: Headache, HTN, hyperdensity on CT TECHNIQUE: Imaging protocol: MR angiogram head without contrast. Exam focused on the arteries. COMPARISON: MRI-Brain W/O FOLL BY WITH 2018-09-24 15:40 FINDINGS: Limitations: Motion artifact does moderately limit the sensitivity of this examination. ANTERIOR CIRCULATION: Right internal carotid artery: Mild right ICA stenosis. Right middle cerebral artery: Mildly stenotic right MCA branches peripherally. Right anterior cerebral artery: No occlusion or significant stenosis. No aneurysm. Left internal carotid artery: Mild left ICA atherosclerotic irregularity with mild stenosis. Left middle cerebral artery: Mild left MCA atherosclerosis. Left anterior cerebral artery: No occlusion or significant stenosis. No aneurysm. POSTERIOR CIRCULATION: Right vertebral artery: No occlusion or significant stenosis. No aneurysm. Left vertebral artery: No occlusion or significant stenosis. No aneurysm. Basilar artery: No occlusion or significant stenosis. No aneurysm. Right posterior cerebral artery: Very severe stenosis of the right MAT MACHINE OPERATOR P2 segment within the ambient cistern. No sizable right posterior communicating artery. Left posterior cerebral artery: Tortuous patent left MAT MACHINE OPERATOR P1 segment also supplied by a large left posterior communicating artery. Other vasculature: Prominent and slightly irregular appearing anterior communicating artery, cannot exclude a tiny couple mm anterior communicating artery aneurysm on the basis of this study, consider CTA, although probably just related to some mild motion artifact and technique. IMPRESSION: 1. 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 Additionally, there is a small chronic inferior right occipital cortical infarct noted on the concurrently performed MR brain. 2. Prominent and slightly irregular appearing anterior communicating artery, cannot exclude a tiny couple mm anterior communicating artery aneurysm, versus artifact or a fenestration on the basis of this study, consider CTA. Electronically signed by: Deng Cruz On 05/28/2020 02:32:36 AM
--- NOTE | 2020-05-29 09:14 | ECGEPIP ---
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
--- NOTE | 2020-05-29 16:27 | ED PDOC ---
Post-Departure Follow-Up dr brice faxed formal report of mri and mra brain for fu Escobar Velasquez MD May 29, 2020 16:27
== END 2020-05-28 02:50 | disposition home or self-care (01) ==
LOC: M ED 21:38
DX: I11.0 Hypertensive heart disease with heart failure (principal); R51.9 Headache, unspecified; G31.1 Senile degeneration of brain, not elsewhere classified; R93.0 Abnormal findings on diagnostic imaging of skull and head, not elsewhere classified; I50.9 Heart failure, unspecified; I48.91 Unspecified atrial fibrillation; Z86.73 Personal history of transient ischemic attack (TIA), and cerebral infarction without residual deficits; Z85.51 Personal history of malignant neoplasm of bladder; Z93.6 Other artificial openings of urinary tract status; Z90.6 Acquired absence of other parts of urinary tract; Z88.5 Allergy status to narcotic agent; Z91.018 Allergy to other foods; Z91.048 Other nonmedicinal substance allergy status; Z79.899 Other long term (current) drug therapy; Z79.82 Long term (current) use of aspirin; Z79.01 Long term (current) use of anticoagulants
CPT/HCPCS: 36415; 70450; 70544; 70551; 71045; 80048; 82550; 82553; 84484; 85025; 93005; 93041; 94760; 96374; 99285; J0360

== ENCOUNTER 2020-06-18 15:34 | Emergency (ER) | payer MEDICARE ==
[~2020-06-18] VITALS: Ht 157.5 cm; Wt 82.7 kg
[~2020-06-18 15:34] MED LIST changes: +ACET325C5 PO; +QC A650T3 PO
[2020-06-18 16:24] LABS: HEMATOCRIT 36.8 % (36.0-47.0); HEMOGLOBIN 11.7 g/dl (12.0-15.5); MEAN CORPUSCULAR HEMOGLOBIN 28.1 pg (27.0-33.0); MEAN CORPUSCULAR HGB CONC 31.8 g/dl (32.0-36.5); MEAN CORPUSCULAR VOLUME 88.5 fl (80.0-96.0); PLATELET COUNT, AUTOMATED 135 10^3/uL (150-450); RED BLOOD COUNT 4.16 10^6/uL (4.00-5.40); WHITE BLOOD COUNT 5.5 10^3/uL (4.0-10.0)
--- NOTE | 2020-06-18 16:37 | REPVR ---
PROCEDURE INFORMATION: Exam: CT Head Without Contrast Exam date and time: 06/18/2020 4:19 PM Age: 85 years old Clinical indication: Pain; Headache not specified; Additional info: Headache, hypertensive TECHNIQUE: Imaging protocol: Computed tomography of the head without contrast. Radiation optimization: All CT scans at this facility use at least one of these dose optimization techniques: automated exposure control; mA and/or kV adjustment per patient size (includes targeted exams where dose is matched to clinical indication); or iterative reconstruction. COMPARISON: CT Head without contrast 05/27/2020 10:19 PM FINDINGS: Brain: Moderately advanced generalized cerebral atrophy. 4 mm lacunar infarct anterior limb right internal capsule. Patchy low-density in the periventricular white matter extending into alexis radiata and centrum semiovale bilaterally. No hemorrhage. No mass effect. Midline structures intact. 4 mm lacunar infarct posterior limb right internal capsule. Moderate cerebellar cortical atrophy. Cystic encephalomalacia in the right occipital lobe related to old infarct. Cerebral ventricles: No ventriculomegaly. Bones/joints: Unremarkable. No acute fracture. Paranasal sinuses: Visualized sinuses are unremarkable. No fluid levels. Mastoid air cells: Partial opacification left mastoid air cells. Soft tissues: Unremarkable. IMPRESSION: 1. No acute findings in the brain. 2. Mild left mastoiditis. 3. Moderately advanced cerebral atrophy with chronic microvascular ischemic change in the deep white matter. Chronic right occipital infarct. Chronic basal ganglia lacunar infarcts. Electronically signed by: Phuong Pemberton On 06/18/2020 16:38:00 PM
[2020-06-18 16:44] LABS: CALCIUM LEVEL 9.2 MG/DL (8.8-10.2); CREATININE FOR GFR 0.95 MG/DL (0.55-1.30); GLOMERULAR FILTRATION RATE 59.5 (>32); POTASSIUM SERUM 3.8 MEQ/L (3.5-5.1)
[2020-06-18 17:29] VITALS: BP 168/77
--- NOTE | 2020-06-20 10:30 | ED PDOC ---
Post-Departure Follow-Up Dr Erick Carrasquillo faxed formal report of CT head for fu Escobar Velasquez MD Jun 20, 2020 10:30
== END 2020-06-18 17:32 | disposition home or self-care (01) ==
LOC: M ED 15:34
DX: I10 Essential (primary) hypertension (principal); R51.9 Headache, unspecified; I25.10 Atherosclerotic heart disease of native coronary artery without angina pectoris; I25.2 Old myocardial infarction; Z85.3 Personal history of malignant neoplasm of breast; Z85.42 Personal history of malignant neoplasm of other parts of uterus; Z88.5 Allergy status to narcotic agent; Z91.018 Allergy to other foods; Z91.048 Other nonmedicinal substance allergy status; Z79.899 Other long term (current) drug therapy; Z79.82 Long term (current) use of aspirin; Z79.01 Long term (current) use of anticoagulants

== ENCOUNTER → 2020-06-25 | Outpatient (REF) | payer MEDICARE | LOC: M LAB REF 17:04 | PROVIDERS: ATTEND Family Medicine | DX: R31.0 Gross hematuria (principal) ==

== ENCOUNTER → 2020-06-27 | Outpatient (CLI) | payer MEDICARE ==
[~2020-06-27] MED LIST changes: +CYAN500T14 PO; -CYAN500T8 PO
--- NOTE | 2020-06-27 15:01 | REP ---
INDICATION: CEREBRAL INFARCTION, JENNINGS COMPARISON: 07/15/2011. TECHNIQUE: Real-time ultrasound evaluation and duplex Doppler interrogation of the extracranial carotid vasculature is performed. FINDINGS: There is mild plaquing and narrowing in both carotid bulbs extending into the internal and external carotid arteries. Luminal narrowing is less than 50%. There is no evidence of hemodynamically significant stenosis of either internal carotid artery. Normal flow velocities are seen. The vertebral arteries demonstrate normal direction of flow. RIGHT LEFT Peak systolic velocity ICA 78.5 cm/s 69.8 cm/s End diastolic velocity ICA 18.7 cm/s 18.4 cm/s Peak systolic velocity CCA 93.8 cm/s 87.6cm/s Peak systolic velocity ECA 86.2 cm/s 103 cm/s ICA/CCA ratio 0.89 0.80 IMPRESSION: Bilateral luminal narrowing of the internal carotid arteries less than 50%. No evidence of hemodynamically significant stenosis. <Electronically signed by Derrell Chiu > 06/27/20 [id number]
== END ==
LOC: M RAD 14:15
PROVIDERS: ATTEND Family Medicine
DX: I63.9 Cerebral infarction, unspecified (principal); G44.89 Other headache syndrome

== ENCOUNTER 2020-07-11 15:10 | Emergency (ER) | payer MEDICARE ==
[~2020-07-11] VITALS: Ht 157.5 cm; Wt 83.2 kg
[2020-07-11] MEDS ORDERED: AMLO2.5T3 (15:20)
[2020-07-11] MEDS ORDERED: MECL12.590 (15:20)
[2020-07-11 16:58] VITALS: BP 128/71
[2020-07-11 17:46] LABS: BASO % 0.4 % (0.0-1.0); EOS # 0.1 10^3/uL (0.0-0.5); EOS % 1.9 % (0.0-3.0); HEMATOCRIT 37.4 % (36.0-47.0); HEMOGLOBIN 11.9 g/dl (12.0-15.5); LYMPH # 1.3 10^3/uL (1.5-5.0); LYMPH % 22.8 % (24.0-44.0); MEAN CORPUSCULAR HEMOGLOBIN 27.9 pg (27.0-33.0); MEAN CORPUSCULAR HGB CONC 31.8 g/dl (32.0-36.5); MEAN CORPUSCULAR VOLUME 87.6 fl (80.0-96.0); MONO # 0.6 10^3/uL (0.0-0.8); MONO % 9.8 % (0.0-5.0); NEUTROPHILS # 3.7 10^3/uL (1.5-8.5); NEUTROPHILS % 64.9 % (36.0-66.0); PLATELET COUNT, AUTOMATED 142 10^3/uL (150-450); RED BLOOD COUNT 4.27 10^6/uL (4.00-5.40); WHITE BLOOD COUNT 5.7 10^3/uL (4.0-10.0)
[2020-07-11 18:04] LABS: PARTIAL THROMBOPLASTIN TIME 41.7 SECONDS (24.2-38.5)
[2020-07-11 18:21] LABS: BLOOD UREA NITROGEN 16 MG/DL (7-18); CALCIUM LEVEL 9.3 MG/DL (8.8-10.2); CARBON DIOXIDE LEVEL 29 MEQ/L (21-32); CHLORIDE LEVEL 104 MEQ/L (98-107); CREATININE FOR GFR 0.92 MG/DL (0.55-1.30); GLOMERULAR FILTRATION RATE > 60.0 (>32); GLUCOSE, FASTING 108 MG/DL (70-100); POTASSIUM SERUM 4.2 MEQ/L (3.5-5.1); SODIUM LEVEL 135 MEQ/L (136-145)
[2020-07-11 18:34] LABS: INR 1.65; PROTHROMBIN TIME 19.9 SECONDS (12.5-14.3)
== END 2020-07-11 20:12 | disposition home or self-care (01) ==
LOC: M ED 15:10
DX: N89.8 Other specified noninflammatory disorders of vagina (principal); Z85.40 Personal history of malignant neoplasm of unspecified female genital organ; Z85.51 Personal history of malignant neoplasm of bladder; Z85.828 Personal history of other malignant neoplasm of skin; E11.9 Type 2 diabetes mellitus without complications; I13.0 Hypertensive heart and chronic kidney disease with heart failure and stage 1 through stage 4 chronic kidney disease, or unspecified chronic kidney disease; I50.9 Heart failure, unspecified; I25.2 Old myocardial infarction; Z85.3 Personal history of malignant neoplasm of breast; Z90.12 Acquired absence of left breast and nipple; R42 Dizziness and giddiness; N18.30 Chronic kidney disease, stage 3 unspecified; Z86.718 Personal history of other venous thrombosis and embolism; Z95.5 Presence of coronary angioplasty implant and graft; Z91.048 Other nonmedicinal substance allergy status; Z88.5 Allergy status to narcotic agent; Z91.018 Allergy to other foods; Z79.899 Other long term (current) drug therapy; Z79.82 Long term (current) use of aspirin; Z79.02 Long term (current) use of antithrombotics/antiplatelets

== ENCOUNTER → 2020-07-25 | Outpatient (REF) | payer MEDICARE ==
[~2020-07-25] MED LIST changes: +AMLO2.5T3; +MECL12.590
[2020-07-25 12:56] LABS: BASO % 0.4 % (0.0-1.0); EOS # 0.2 10^3/uL (0.0-0.5); EOS % 2.1 % (0.0-3.0); HEMATOCRIT 41.5 % (36.0-47.0); HEMOGLOBIN 13.1 g/dl (12.0-15.5); LYMPH # 2.4 10^3/uL (1.5-5.0); MEAN CORPUSCULAR HGB CONC 31.6 g/dl (32.0-36.5); MEAN CORPUSCULAR VOLUME 88.7 fl (80.0-96.0); MONO # 0.8 10^3/uL (0.0-0.8); MONO % 9.8 % (0.0-5.0); NEUTROPHILS # 4.3 10^3/uL (1.5-8.5); NEUTROPHILS % 56.4 % (36.0-66.0); PLATELET COUNT, AUTOMATED 179 10^3/uL (150-450); RED BLOOD COUNT 4.68 10^6/uL (4.00-5.40); WHITE BLOOD COUNT 7.7 10^3/uL (4.0-10.0)
[2020-07-25 13:17] LABS: HEMOGLOBIN A1c 5.6 %
[2020-07-25 13:24] LABS: ALBUMIN 3.6 GM/DL (3.2-5.2); BILIRUBIN,TOTAL 0.4 MG/DL (0.2-1.0); CALCIUM LEVEL 9.9 MG/DL (8.8-10.2); CREATININE FOR GFR 1.07 MG/DL (0.55-1.30); GLOMERULAR FILTRATION RATE 51.9 (>32); POTASSIUM SERUM 4.6 MEQ/L (3.5-5.1); TOTAL PROTEIN 7.2 GM/DL (6.4-8.2)
== END ==
LOC: M LABDRWAD 12:33
PROVIDERS: ATTEND Family Medicine
DX: I12.9 Hypertensive chronic kidney disease with stage 1 through stage 4 chronic kidney disease, or unspecified chronic kidney disease (principal); Z79.899 Other long term (current) drug therapy

== ENCOUNTER 2021-03-13 21:32 | Emergency (ER) | payer MEDICARE ==
[~2021-03-13] VITALS: Ht 157.5 cm; Wt 80.5 kg
[2021-03-13 22:41] LABS: BASO % 0.3 % (0.0-1.0); EOS # 0.2 10^3/uL (0.0-0.5); EOS % 2.7 % (0.0-3.0); HEMATOCRIT 38.3 % (36.0-47.0); HEMOGLOBIN 12.5 g/dl (12.0-15.5); LYMPH # 1.6 10^3/uL (1.5-5.0); LYMPH % 26.9 % (24.0-44.0); MEAN CORPUSCULAR HEMOGLOBIN 29.1 pg (27.0-33.0); MEAN CORPUSCULAR HGB CONC 32.6 g/dl (32.0-36.5); MEAN CORPUSCULAR VOLUME 89.1 fl (80.0-96.0); MONO # 0.8 10^3/uL (0.0-0.8); MONO % 13.4 % (2.0-8.0); NEUTROPHILS # 3.4 10^3/uL (1.5-8.5); NEUTROPHILS % 56.5 % (36.0-66.0); PLATELET COUNT, AUTOMATED 169 10^3/uL (150-450)
[2021-03-13 23:28] LABS: ALBUMIN 3.6 GM/DL (3.2-5.2); ALT/SGPT 22 U/L (12-78); BILIRUBIN,DIRECT 0.1 MG/DL (0.0-0.2); BILIRUBIN,TOTAL 0.3 MG/DL (0.2-1.0); BLOOD UREA NITROGEN 20 MG/DL (7-18); CALCIUM LEVEL 9.4 MG/DL (8.8-10.2); CARBON DIOXIDE LEVEL 29 MEQ/L (21-32); CHLORIDE LEVEL 100 MEQ/L (98-107); CK-MB VALUE MASS 1.2 NG/ML (<3.6); CPK CREATINE PHOSPHOKINASE 81 U/L (26-192); CREATININE FOR GFR 0.93 MG/DL (0.55-1.30); FREE T4 1.07 NG/DL (0.76-1.46); GLOMERULAR FILTRATION RATE > 60.0 (>32); GLUCOSE, FASTING 104 MG/DL (70-100); LIPASE 207 U/L (73-393); MB/CK RELATIVE INDEX 1.48 (< OR =4); POTASSIUM SERUM 4.1 MEQ/L (3.5-5.1); SODIUM LEVEL 135 MEQ/L (136-145); TROPONIN I < 0.02 NG/ML (< 0.10)
--- NOTE | 2021-03-13 23:39 | REPVR ---
PROCEDURE INFORMATION: Exam: XR Chest Exam date and time: 03/13/2021 10:16 PM Age: 85 years old Clinical indication: Other: Chest pain TECHNIQUE: Imaging protocol: XR of the chest. Views: 2 views. COMPARISON: CR PORTABLE CHEST X-RAY 05/27/2020 10:47 PM FINDINGS: Tubes, catheters and devices: There are surgical clips at the left axilla. Lungs: The lungs appear clear. Pleural spaces: There is no evidence of pneumothorax or pleural effusion. Heart/Mediastinum: The heart is normal in size. Bones/joints: There is no evidence of bony abnormality. There is moderate kyphosis of the thoracic spine with anterior osteophyte formation. There is osteoporosis. IMPRESSION: Clear appearing lungs. Electronically signed by: Rudi Whitman On 03/13/2021 23:38:52 PM
[2021-03-14 04:26] LABS: CK-MB VALUE MASS 1.2 NG/ML (<3.6); CPK CREATINE PHOSPHOKINASE 89 U/L (26-192); MB/CK RELATIVE INDEX 1.35 (< OR =4); TROPONIN I < 0.02 NG/ML (< 0.10)
[2021-03-14 05:45] VITALS: BP 196/89
--- NOTE | 2021-03-14 06:49 | ECGEPIP ---
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
--- NOTE | 2021-03-14 06:53 | ECGEPIP ---
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
== END 2021-03-14 06:30 | disposition home or self-care (01) ==
LOC: M ED 23:20
DX: R07.9 Chest pain, unspecified (principal); E83.42 Hypomagnesemia; R00.1 Bradycardia, unspecified; I44.0 Atrioventricular block, first degree; I25.2 Old myocardial infarction; Z85.51 Personal history of malignant neoplasm of bladder; Z86.711 Personal history of pulmonary embolism; Z95.5 Presence of coronary angioplasty implant and graft; E11.9 Type 2 diabetes mellitus without complications; Z79.82 Long term (current) use of aspirin; Z79.899 Other long term (current) drug therapy; Z91.89 Other specified personal risk factors, not elsewhere classified; Z88.5 Allergy status to narcotic agent; Z88.8 Allergy status to other drugs, medicaments and biological substances

== ENCOUNTER → 2021-03-13 | Outpatient (REF) | payer MEDICARE ==
[~2021-03-13] MED LIST changes: +MECL-136; -MECL12.590
== END ==
LOC: M LAB REF 16:56
PROVIDERS: ATTEND Nurse Practitioner Family
DX: E83.42 Hypomagnesemia (principal)

== ENCOUNTER 2021-03-17 12:59 | Emergency (ER) | payer MEDICARE ==
[~2021-03-17] VITALS: Ht 157.5 cm; Wt 80.3 kg
--- NOTE | 2021-03-17 15:37 | REP ---
INDICATION: large amount blood in urostomy bag, hx renal stones. COMPARISON: None. TECHNIQUE: Axial scans without contrast. Sagittal/coronal reconstructions. FINDINGS: Lower lungs are clear. Liver shows normal size and attenuation patent no evidence of mass or biliary tract dilatation. Gallbladder contains multiple small stones. The gallbladder is not distended. The pancreas, spleen, aorta and adrenal glands unremarkable. Right kidney normal size measuring 9.4 x 6 x 5.7 cm. Multiple calculi in the calices and renal pelvis. The largest calculus is in the lower pole and measures 1.5 cm. No hydronephrosis or mass. Left kidney parenchymal atrophy. Measuring in 6.2 x3.5 x 3.9 cm. Multiple calculi. Largest in the lower pole measuring 8 mm. No hydronephrosis or mass. Postoperative changes after cystectomy and urinary diversion in the ileal conduit in the right lower quadrant. Multiple diverticuli in the sigmoid colon. No evidence of diverticulitis. No inflammatory change in the abdomen or pelvis. Degenerative changes of the lumbar spine and discs. IMPRESSION: Multiple bilateral renal calculi. <Electronically signed by Elver Johnston > 03/17/21 [id number]
[2021-03-17 15:52] VITALS: BP 119/67
== END 2021-03-17 16:42 | disposition home or self-care (01) ==
LOC: M ED 12:59
DX: R31.9 Hematuria, unspecified (principal); N20.0 Calculus of kidney; I48.91 Unspecified atrial fibrillation; I50.9 Heart failure, unspecified; I25.2 Old myocardial infarction; N18.30 Chronic kidney disease, stage 3 unspecified; Z85.828 Personal history of other malignant neoplasm of skin; Z86.718 Personal history of other venous thrombosis and embolism; R42 Dizziness and giddiness; Z95.5 Presence of coronary angioplasty implant and graft; Z79.82 Long term (current) use of aspirin; Z79.899 Other long term (current) drug therapy; Z79.01 Long term (current) use of anticoagulants; Z91.89 Other specified personal risk factors, not elsewhere classified; Z88.5 Allergy status to narcotic agent; Z91.02 Food additives allergy status

== ENCOUNTER → 2021-03-20 | Outpatient (CLI) | payer MEDICARE ==
[2021-03-20 14:43] LABS: HEMOGLOBIN A1c 5.9 %
[2021-03-20 14:56] LABS: CREATININE, URINE 27.4 MG/DL; MALB URINE SIEMENS 84.1 MG/L; MAU/CREAT RATIO 306.9 MCG/MG (0.0-30.0)
== END ==
LOC: M PLALAB 10:52
PROVIDERS: ATTEND Family Medicine
DX: E11.22 Type 2 diabetes mellitus with diabetic chronic kidney disease (principal)

== ENCOUNTER → 2021-04-05 | Outpatient (CLI) | payer MEDICARE ==
[~2021-04-05] MED LIST changes: +ISOVUE-370 76% 100ML VIAL As Ordered ONE
--- NOTE | 2021-04-05 10:33 | REP ---
INDICATION: HEMATURIA. Gross hematuria. History of bladder and breast carcinoma. The patient reports prior appendectomy. COMPARISON: Comparison CT study March 17, 2021. TECHNIQUE: CT urography protocol: Pre contrast CT abdomen and pelvis is acquired. 100 mL of Isovue 370 is administered. Dual phase post-contrast imaging is acquired. 3 mm axial images are re-formatted. Coronal and sagittal MPR images are included. FINDINGS: Digital preliminary cytology laboratory manager radiograph demonstrates an unremarkable bowel gas pattern. The lung bases are clear on axial CT images. No evidence of pleural effusion or upper abdominal ascites is seen. The left ventricle and left atrium appear dilated. No pericardial effusion is seen. There is coronary artery vascular calcification. A small subcentimeter cyst is seen in the posterior segment of the right lobe of the liver. No focal liver lesion is seen. There are calcified gallstones layering in the dependent portion of the gallbladder. No pancreatic abnormality is appreciated. There is a small stable enhancing nodule in the left adrenal gland unchanged from the January 08, 2017 prior study. There is mild atrophy of the left kidney. There are multiple intrarenal calculi bilaterally including a 12 mm calculus in the mid to upper pole collecting system of the right kidney and a 9 mm calculus in the left mid kidney. No hydronephrosis is seen on either side. Patient is status post cystectomy and ileal loop ureteral diversion procedure. The ureters describe a normal course to the ileal loop in the right lower quadrant. Ileal loop is opacified on delayed acquisition and unremarkable. There is no evidence of filling defect apart from the above described calculi in the upper tract collecting system on either side. There is left colonic diverticulosis. Small and large bowel loops are otherwise unremarkable. There is some diastasis of the rectus abdominus muscles in the mid abdomen. Degenerative changes are seen in the lumbar spine. IMPRESSION: Bilateral intrarenal nephrolithiasis with multiple intrarenal calculi in both kidneys. No hydronephrosis. Status post cystectomy and ileal loop urinary diversion enterostomy. Cholelithiasis and left colonic diverticulosis are noted incidentally. <Electronically signed by Gaudencio Paulino > 04/05/21 0211
== END ==
LOC: M RAD 09:18
PROVIDERS: ATTEND Urology
DX: R31.9 Hematuria, unspecified (principal)
CPT/HCPCS: 74178; Q9967

== ENCOUNTER → 2021-04-12 | Outpatient (REF) | payer MEDICARE ==
[~2021-04-12] MED LIST changes: -ISOVUE-370 76% 100ML VIAL As Ordered ONE
== END ==
LOC: M SMT 17:08
PROVIDERS: ATTEND Urology
DX: Z85.51 Personal history of malignant neoplasm of bladder (principal)
CPT/HCPCS: 88108; G0463

== ENCOUNTER → 2021-04-19 | Outpatient (CLI) | payer MEDICARE ==
--- NOTE | 2021-04-19 11:55 | REP ---
INDICATION: PERSONAL HX OF BREAST CA. COMPARISON: Multiple TECHNIQUE: Digital screening mammography of the right breast was carried out in the CC and MLO projections using both 2D and 3D modalities and compared to the prior exam. The patient is status post left mastectomy. By history, the patient has no complaints of a palpable breast abnormality or other significant breast complaints. FINDINGS: The right breast is unchanged in size and shape. There are no glenn soft tissue densities or spiculated masses. There is no internal architectural distortion. Stable benign calcifications are again seen. There is no skin thickening or nipple retraction. The Volpara volumetric breast density pattern is b. IMPRESSION: BIRADS/ACR category 2 benign findings. There is no evidence of malignant alteration of the right breast.. This mammogram was interpreted with the aid of an FDA-approved computer-aided detection system. The patient states she had a clinical breast exam in January 2021. The patient letter being requested is M1. RECOMMENDATION: Repeat screening mammography recommended 1 year (for women over 40). <Electronically signed by Christian Mccoy > 04/19/21 [id number]
== END ==
LOC: M WHC 09:47
PROVIDERS: ATTEND Physician Assistant
DX: Z12.31 Encounter for screening mammogram for malignant neoplasm of breast (principal); Z85.3 Personal history of malignant neoplasm of breast; Z90.12 Acquired absence of left breast and nipple

== ENCOUNTER 2021-07-14 12:02 | Inpatient (IN) | payer MEDICARE ==
[~2021-07-14] VITALS: Ht 157.5 cm; Wt 82.9 kg
[2021-07-14 13:29] LABS: BASO % 0.4 % (0.0-1.0); EOS % 0.3 % (0.0-3.0); HEMATOCRIT 38.4 % (36.0-47.0); HEMOGLOBIN 12.8 g/dl (12.0-15.5); LYMPH # 1.6 10^3/uL (1.5-5.0); LYMPH % 14.9 % (24.0-44.0); MEAN CORPUSCULAR HEMOGLOBIN 29.1 pg (27.0-33.0); MEAN CORPUSCULAR HGB CONC 33.3 g/dl (32.0-36.5); MEAN CORPUSCULAR VOLUME 87.3 fl (80.0-96.0); MONO # 1.1 10^3/uL (0.0-0.8); MONO % 10.3 % (2.0-8.0); NEUTROPHILS # 7.9 10^3/uL (1.5-8.5); NEUTROPHILS % 73.8 % (36.0-66.0); PLATELET COUNT, AUTOMATED 170 10^3/uL (150-450); WHITE BLOOD COUNT 10.7 10^3/uL (4.0-10.0)
[2021-07-14 14:01] LABS: ALBUMIN 3.7 GM/DL (3.2-5.2); BILIRUBIN,DIRECT 0.2 MG/DL (0.0-0.2); BILIRUBIN,TOTAL 0.6 MG/DL (0.2-1.0); CALCIUM LEVEL 9.7 MG/DL (8.8-10.2); CREATININE FOR GFR 0.98 MG/DL (0.55-1.30); GLOMERULAR FILTRATION RATE 57.3 (>32); POTASSIUM SERUM 3.9 MEQ/L (3.5-5.1); TOTAL PROTEIN 7.5 GM/DL (6.4-8.2)
[2021-07-14] MEDS ORDERED: ISOVUE-370 76% 100ML VIAL As Ordered ONE (14:14)
[2021-07-14] MEDS ORDERED: KETOROLAC 30 MG/ML 1ML VIAL IV ONE (14:50)
[2021-07-14] MEDS ORDERED: NS 1,000 ML IV ONE (14:55)
[2021-07-14] MEDS ORDERED: cefTRIAXone SOD 1 GM in D5W MINI-BAG PLUS 50 ML IV ONE (15:30)
[2021-07-14 16:10] LABS: RSV AMPLIFICATION NEGATIVE (NEGATIVE)
[2021-07-14] MEDS ORDERED: CAL-TAB2 PO (16:32)
[2021-07-14] MEDS ORDERED: ASPI81TA26 PO (16:32)
[2021-07-14] MEDS ORDERED: OCUVTAB PO (16:32)
[2021-07-14] MEDS ORDERED: D31000TA2 PO (16:33)
[2021-07-14] MEDS ORDERED: HOME MED LIST COMPLETE! XX SCH (16:35)
[2021-07-14] MEDS ORDERED: KETOROLAC 30 MG/ML 1ML VIAL IV PRN (17:00)
[2021-07-14 18:29] LABS: BASO % 0.1 % (0.0-1.0); EOS % 0.1 % (0.0-3.0); HEMATOCRIT 38.7 % (36.0-47.0); HEMOGLOBIN 12.8 g/dl (12.0-15.5); LYMPH # 0.5 10^3/uL (1.5-5.0); LYMPH % 5.6 % (24.0-44.0); MEAN CORPUSCULAR HEMOGLOBIN 28.8 pg (27.0-33.0); MEAN CORPUSCULAR HGB CONC 33.1 g/dl (32.0-36.5); MONO # 0.1 10^3/uL (0.0-0.8); MONO % 1.4 % (2.0-8.0); NEUTROPHILS # 7.9 10^3/uL (1.5-8.5); NEUTROPHILS % 92.2 % (36.0-66.0); PLATELET COUNT, AUTOMATED 148 10^3/uL (150-450); RED BLOOD COUNT 4.45 10^6/uL (4.00-5.40); WHITE BLOOD COUNT 8.5 10^3/uL (4.0-10.0)
[2021-07-14] MEDS: NS 1,000 ML IV SCH (20:00)
[2021-07-14] MEDS: CIPROFLOXACIN 400 MG in IV 1 EA IV SCH (20:00)
[2021-07-14] MEDS: atenoloL 25 MG TAB PO SCH (20:10)
[2021-07-14] MEDS: VITAMIN D 1,000 INTERNATIONAL UNITS TABLET PO SCH (21:09)
[2021-07-15 06:01] LABS: HEMATOCRIT 31.4 % (36.0-47.0); MEAN CORPUSCULAR HEMOGLOBIN 29.1 pg (27.0-33.0); MEAN CORPUSCULAR HGB CONC 33.8 g/dl (32.0-36.5); MEAN CORPUSCULAR VOLUME 86.3 fl (80.0-96.0); PLATELET COUNT, AUTOMATED 124 10^3/uL (150-450); RED BLOOD COUNT 3.64 10^6/uL (4.00-5.40); WHITE BLOOD COUNT 18.6 10^3/uL (4.0-10.0)
[2021-07-15 06:05] LABS: HEMOGLOBIN 10.6 g/dl (12.0-15.5)
[2021-07-15 06:10] LABS: INR 1.78; PROTHROMBIN TIME 21.1 SECONDS (12.7-14.5)
[2021-07-15 06:20] LABS: ALBUMIN 2.3 GM/DL (3.2-5.2); BILIRUBIN,TOTAL 0.5 MG/DL (0.2-1.0); CALCIUM LEVEL 8.6 MG/DL (8.8-10.2); CREATININE FOR GFR 1.22 MG/DL (0.55-1.30); GLOMERULAR FILTRATION RATE 44.5 (>32); POTASSIUM SERUM 4.2 MEQ/L (3.5-5.1); TOTAL PROTEIN 5.1 GM/DL (6.4-8.2)
[2021-07-15] MEDS: CIPROFLOXACIN 400 MG in IV 1 EA IV SCH (08:00)
[2021-07-15] MEDS: OCUVITE 1 TAB PO SCH (08:41)
[2021-07-15] MEDS: ASPIRIN 81MG ENTERIC TABLET PO SCH (08:41)
[2021-07-15] MEDS: CYANOCOBALAMIN 500 MCG TAB PO SCH (08:41)
[2021-07-15] MEDS: atenoloL 25 MG TAB PO SCH (08:42)
[2021-07-15] MEDS: ACETAMINOPHEN TAB 650MG DOSE (2X325MG) PO PRN ×2 (11:03→20:48)
[2021-07-15] MEDS: MEROPENEM INJ 1 GM in IV 1 EA IV SCH ×2 (11:03→20:41)
[2021-07-15] MEDS: NS 1,000 ML IV SCH (11:06)
[2021-07-15 13:40] VITALS: BP 122/67
[2021-07-15] MEDS ORDERED: cefTRIAXone SOD 1 GM in D5W MINI-BAG PLUS 50 ML IV SCH (15:00)
[2021-07-15] MEDS ORDERED: HEPARIN SOD (PORCINE) 5000UNITS/ML 1ML VIAL/SYRINGE IV PRN (16:25)
[2021-07-15] MEDS: HEPARIN DRIP 25,000 UNITS in IV 1 EA IV SCH (19:10)
[2021-07-15] MEDS: VITAMIN D 1,000 INTERNATIONAL UNITS TABLET PO SCH (20:41)
[2021-07-15 20:47] LABS: BASO % 0.3 % (0.0-1.0); EOS % 0.1 % (0.0-3.0); HEMOGLOBIN 10.9 g/dl (12.0-15.5); LYMPH # 0.5 10^3/uL (1.5-5.0); MEAN CORPUSCULAR HEMOGLOBIN 28.9 pg (27.0-33.0); MEAN CORPUSCULAR VOLUME 87.5 fl (80.0-96.0); MONO # 0.5 10^3/uL (0.0-0.8); NEUTROPHILS # 10.4 10^3/uL (1.5-8.5); PLATELET COUNT, AUTOMATED 124 10^3/uL (150-450); RED BLOOD COUNT 3.77 10^6/uL (4.00-5.40); WHITE BLOOD COUNT 11.4 10^3/uL (4.0-10.0)
[2021-07-15 21:01] LABS: INR 1.66
[2021-07-15 21:18] LABS: ALBUMIN 2.5 GM/DL (3.2-5.2); BILIRUBIN,TOTAL 0.4 MG/DL (0.2-1.0); CREATININE FOR GFR 1.16 MG/DL (0.55-1.30); GLOMERULAR FILTRATION RATE 47.2 (>32); POTASSIUM SERUM 4.1 MEQ/L (3.5-5.1); TOTAL PROTEIN 5.7 GM/DL (6.4-8.2)
[2021-07-15 22:00] VITALS: BP 152/99
[2021-07-16] MEDS: NS 1,000 ML IV SCH ×2 (03:53→12:28)
[2021-07-16 06:00] VITALS: BP 141/65
[2021-07-16 08:08] LABS: BASO % 0.2 % (0.0-1.0); EOS % 0.1 % (0.0-3.0); HEMATOCRIT 31.5 % (36.0-47.0); HEMOGLOBIN 10.4 g/dl (12.0-15.5); LYMPH # 0.7 10^3/uL (1.5-5.0); LYMPH % 6.9 % (24.0-44.0); MEAN CORPUSCULAR HEMOGLOBIN 28.7 pg (27.0-33.0); MONO # 1.1 10^3/uL (0.0-0.8); MONO % 10.8 % (2.0-8.0); NEUTROPHILS % 81.7 % (36.0-66.0); PLATELET COUNT, AUTOMATED 111 10^3/uL (150-450); RED BLOOD COUNT 3.62 10^6/uL (4.00-5.40); WHITE BLOOD COUNT 9.8 10^3/uL (4.0-10.0)
[2021-07-16 08:36] LABS: CALCIUM LEVEL 8.4 MG/DL (8.8-10.2); CREATININE FOR GFR 0.98 MG/DL (0.55-1.30); GLOMERULAR FILTRATION RATE 57.3 (>32); POTASSIUM SERUM 3.9 MEQ/L (3.5-5.1)
[2021-07-16] MEDS: MEROPENEM INJ 1 GM in IV 1 EA IV SCH ×2 (09:36→20:00)
[2021-07-16] MEDS: ASPIRIN 81MG ENTERIC TABLET PO SCH (09:37)
[2021-07-16] MEDS: CYANOCOBALAMIN 500 MCG TAB PO SCH (09:37)
[2021-07-16] MEDS: OCUVITE 1 TAB PO SCH (09:37)
[2021-07-16] MEDS: atenoloL 25 MG TAB PO SCH (09:42)
[2021-07-16 14:00] VITALS: BP 142/70
[2021-07-16] MEDS: ACETAMINOPHEN TAB 650MG DOSE (2X325MG) PO PRN (16:59)
[2021-07-16 17:06] VITALS: BP 160/96
[2021-07-16] MEDS: HEPARIN DRIP 25,000 UNITS in IV 1 EA IV SCH (17:33)
[2021-07-16] MEDS ORDERED: ACETAMINOPHEN 325 MG SUPP PR ONE (19:00)
[2021-07-16] MEDS ORDERED: KETOROLAC 30 MG/ML 1ML VIAL IV ONE ×2 (19:50)
[2021-07-16] MEDS: VITAMIN D 1,000 INTERNATIONAL UNITS TABLET PO SCH (20:01)
[2021-07-16] MEDS: ACETAMINOPHEN 650 MG SUPP PR PRN (21:36)
[2021-07-16 22:00] VITALS: BP 137/62
[2021-07-16] MEDS ORDERED: LevoFLOXacin IV 500 MG in IV 1 EA IV SCH (23:00)
[2021-07-17 03:43] VITALS: BP 130/60
[2021-07-17] MEDS: NS 1,000 ML IV SCH ×2 (04:08→18:55)
[2021-07-17] MEDS: LACTOBACILLUS ACIDOPHILUS CAP (BACID) PO SCH ×2 (08:00→18:55)
[2021-07-17] MEDS: ASPIRIN 81MG ENTERIC TABLET PO SCH (09:00)
[2021-07-17] MEDS: atenoloL 25 MG TAB PO SCH (16:58)
[2021-07-17 17:00] VITALS: BP 151/78
[2021-07-17] MEDS: CYANOCOBALAMIN 500 MCG TAB PO SCH (18:55)
[2021-07-17] MEDS: OCUVITE 1 TAB PO SCH (18:55)
[2021-07-17] MEDS ORDERED: traMADol 50 MG TAB PO PRN (19:40)
[2021-07-17] MEDS: VITAMIN D 1,000 INTERNATIONAL UNITS TABLET PO SCH (20:59)
[2021-07-17] MEDS: ACETAMINOPHEN 650 MG SUPP PR PRN (20:59)
[2021-07-17 22:00] VITALS: BP 152/70
[2021-07-17] MEDS ORDERED: LevoFLOXacin IV 250 MG in IV 1 EA IV SCH (23:00)
[2021-07-18 02:00] VITALS: BP 157/70
[2021-07-18] MEDS ORDERED: ACETAMINOPHEN TAB 650MG DOSE (2X325MG) PO PRN (04:15)
[2021-07-18] MEDS: atenoloL 25 MG TAB PO SCH (04:17)
[2021-07-18] MEDS: NS 1,000 ML IV SCH (05:57)
[2021-07-18 06:00] VITALS: BP 152/68
[2021-07-18 06:35] LABS: HEMATOCRIT 29.8 % (36.0-47.0); MEAN CORPUSCULAR HGB CONC 33.6 g/dl (32.0-36.5); MEAN CORPUSCULAR VOLUME 86.4 fl (80.0-96.0); PLATELET COUNT, AUTOMATED 111 10^3/uL (150-450); RED BLOOD COUNT 3.45 10^6/uL (4.00-5.40); WHITE BLOOD COUNT 7.1 10^3/uL (4.0-10.0)
[2021-07-18 07:06] LABS: BLOOD UREA NITROGEN 12 MG/DL (7-18); CARBON DIOXIDE LEVEL 23 MEQ/L (21-32); CHLORIDE LEVEL 107 MEQ/L (98-107); CREATININE FOR GFR 0.71 MG/DL (0.55-1.30); GLOMERULAR FILTRATION RATE > 60.0 (>32); GLUCOSE, FASTING 105 MG/DL (70-100); POTASSIUM SERUM 4.2 MEQ/L (3.5-5.1); SODIUM LEVEL 136 MEQ/L (136-145)
[2021-07-18 07:07] LABS: ALBUMIN 1.8 GM/DL (3.2-5.2); ALT/SGPT 15 U/L (12-78); BILIRUBIN,TOTAL 0.5 MG/DL (0.2-1.0); CALCIUM LEVEL 8.4 MG/DL (8.8-10.2); TOTAL PROTEIN 4.6 GM/DL (6.4-8.2)
[2021-07-18] MEDS: CYANOCOBALAMIN 500 MCG TAB PO SCH (09:29)
[2021-07-18] MEDS: ASPIRIN 81MG ENTERIC TABLET PO SCH (09:29)
[2021-07-18] MEDS: LevoFLOXacin 500 MG TABLET PO SCH (09:29)
[2021-07-18] MEDS: LACTOBACILLUS ACIDOPHILUS CAP (BACID) PO SCH ×2 (09:30→18:17)
[2021-07-18] MEDS: OCUVITE 1 TAB PO SCH (09:30)
[2021-07-18] MEDS ORDERED: RIVAROXABAN 10 MG TAB (XARELTO) PO ONE (10:35)
[2021-07-18] MEDS: ACETAMINOPHEN TAB 650MG DOSE (2X325MG) PO PRN (15:48)
[2021-07-18] MEDS ORDERED: FUROSEMIDE 40MG/4ML VIAL (J1940) IV ONE (19:35)
[2021-07-18] MEDS ORDERED: FUROSEMIDE 40 MG TAB PO ONE (19:40)
[2021-07-18] MEDS ORDERED: LEVO500T4 PO (19:45)
[2021-07-18] MEDS ORDERED: RISATAB3 PO (19:45)
[2021-07-18] MEDS ORDERED: TRAM50TA2 PO (19:45)
[2021-07-18] MEDS ORDERED: XARE10TA PO (19:46)
[2021-07-18] MEDS: VITAMIN D 1,000 INTERNATIONAL UNITS TABLET PO SCH (20:40)
[2021-07-18 22:00] VITALS: BP 141/67
[2021-07-19 01:15] VITALS: BP 118/69
[2021-07-19] MEDS ORDERED: ONDANSETRON 4 MG ORAL DISINTEGRATING TAB PO PRN (01:20)
[2021-07-19] MEDS: ACETAMINOPHEN TAB 650MG DOSE (2X325MG) PO PRN (01:22)
[2021-07-19 05:54] LABS: HEMATOCRIT 31.4 % (36.0-47.0); HEMOGLOBIN 10.6 g/dl (12.0-15.5); MEAN CORPUSCULAR HEMOGLOBIN 28.6 pg (27.0-33.0); MEAN CORPUSCULAR HGB CONC 33.8 g/dl (32.0-36.5); MEAN CORPUSCULAR VOLUME 84.9 fl (80.0-96.0); PLATELET COUNT, AUTOMATED 133 10^3/uL (150-450); WHITE BLOOD COUNT 7.8 10^3/uL (4.0-10.0)
[2021-07-19] MEDS: LevoFLOXacin 500 MG TABLET PO SCH (05:58)
[2021-07-19 06:00] VITALS: BP 126/64
[2021-07-19 06:16] LABS: ALBUMIN 1.7 GM/DL (3.2-5.2); ALT/SGPT 24 U/L (12-78); BILIRUBIN,TOTAL 0.4 MG/DL (0.2-1.0); BLOOD UREA NITROGEN 13 MG/DL (7-18); CALCIUM LEVEL 8.5 MG/DL (8.8-10.2); CARBON DIOXIDE LEVEL 23 MEQ/L (21-32); CHLORIDE LEVEL 109 MEQ/L (98-107); CREATININE FOR GFR 0.73 MG/DL (0.55-1.30); GLOMERULAR FILTRATION RATE > 60.0 (>32); GLUCOSE, FASTING 146 MG/DL (70-100); POTASSIUM SERUM 3.8 MEQ/L (3.5-5.1); SODIUM LEVEL 138 MEQ/L (136-145); TOTAL PROTEIN 5.3 GM/DL (6.4-8.2)
[2021-07-19] MEDS ORDERED: DOCUSATE SODIUM 100MG CAPSULE PO SCH (09:00)
[2021-07-19] MEDS ORDERED: FUROSEMIDE 20 MG TAB PO SCH (09:00)
[2021-07-19] MEDS ORDERED: LACTULOSE 20 GM/30 ML SYRUP UD PO ONE (09:05)
[2021-07-19] MEDS ORDERED: MIRALAX *UNIT DOSE* 17GM PACKET PO PRN (09:05)
[2021-07-19] MEDS ORDERED: MIRA3350 PO (09:06)
[2021-07-19] MEDS ORDERED: COLA100C5 PO (09:06)
[2021-07-19] MEDS: ASPIRIN 81MG ENTERIC TABLET PO SCH (09:11)
[2021-07-19 09:12] VITALS: BP 126/64
[2021-07-19] MEDS: atenoloL 25 MG TAB PO SCH (09:12)
[2021-07-19] MEDS: CYANOCOBALAMIN 500 MCG TAB PO SCH (09:12)
[2021-07-19] MEDS: LACTOBACILLUS ACIDOPHILUS CAP (BACID) PO SCH (09:12)
[2021-07-19] MEDS: OCUVITE 1 TAB PO SCH (09:12)
[2021-07-19] MEDS ORDERED: RIVAROXABAN 10 MG TAB (XARELTO) PO SCH (18:00)
[2021-08-16] MEDS ORDERED: FURO40TA2 PO (09:18)
== END 2021-07-19 11:18 | disposition home health service (06) | DRG 872 ==
LOC: M ED 12:02 → UNDOADMIN 16:50 → M ED INP 16:50 → M MSPAV 07-15 13:37
PROVIDERS: ADMIT Internal Medicine; ATTEND Internal Medicine
DX: A41.9 Sepsis, unspecified organism (principal); N13.1 Hydronephrosis with ureteral stricture, not elsewhere classified; N39.0 Urinary tract infection, site not specified; I25.10 Atherosclerotic heart disease of native coronary artery without angina pectoris; I25.2 Old myocardial infarction; R06.02 Shortness of breath; B96.4 Proteus (mirabilis) (morganii) as the cause of diseases classified elsewhere; B95.2 Enterococcus as the cause of diseases classified elsewhere; R53.1 Weakness; Z85.3 Personal history of malignant neoplasm of breast; Z86.718 Personal history of other venous thrombosis and embolism; Z90.12 Acquired absence of left breast and nipple; Z85.828 Personal history of other malignant neoplasm of skin; Z85.51 Personal history of malignant neoplasm of bladder; Z79.82 Long term (current) use of aspirin; Z79.899 Other long term (current) drug therapy; Z88.5 Allergy status to narcotic agent; Z91.048 Other nonmedicinal substance allergy status; Z91.02 Food additives allergy status; Z20.822 Contact with and (suspected) exposure to COVID-19; Z96.0 Presence of urogenital implants

== ENCOUNTER 2021-07-19 23:41 | Emergency (ER) | payer MEDICARE ==
[~2021-07-19] VITALS: Ht 160 cm; Wt 89.0 kg
[~2021-07-19 23:41] MED LIST changes: +CAL-TAB2 PO; +COLA100C5 PO; +D31000TA2 PO; +LEVO500T4 PO; +MIRA3350 PO; +OCUVTAB PO; +RISATAB3 PO; +TRAM50TA2 PO
[2021-07-20 00:01] VITALS: BP 146/82
[2021-08-16] MEDS ORDERED: FURO40TA2 PO (09:18)
== END 2021-07-20 01:38 | disposition home or self-care (01) ==
LOC: M ED 23:41
DX: T83.198A Other mechanical complication of other urinary devices and implants, initial encounter (principal); I25.10 Atherosclerotic heart disease of native coronary artery without angina pectoris; I10 Essential (primary) hypertension; Z87.448 Personal history of other diseases of urinary system; Z79.01 Long term (current) use of anticoagulants; Z79.82 Long term (current) use of aspirin; Z79.899 Other long term (current) drug therapy; Z91.89 Other specified personal risk factors, not elsewhere classified; Z88.5 Allergy status to narcotic agent; Z91.018 Allergy to other foods

== ENCOUNTER → 2021-07-30 | Outpatient (CLI) | payer MEDICARE ==
[~2021-07-30] MED LIST changes: +FURO40TA2 PO
== END ==
LOC: M PLAIMG 10:50
PROVIDERS: ATTEND Urology
DX: N20.0 Calculus of kidney (principal)
CPT/HCPCS: 74018; G0463

== ENCOUNTER → 2021-07-31 | Outpatient (CLI) | payer MEDICARE, MEDICAID ==
[~2021-07-31] MED LIST changes: -FURO40TA2 PO; +LEVO500T3 PO; -LEVO500T4 PO
--- NOTE | 2021-07-31 12:21 | REP ---
INDICATION: SEPSIS, UNSPECIFIED ORGANISM COMPARISON: 03/13/2021 TECHNIQUE: PA and lateral. FINDINGS: Left lower lobe consolidation/partial collapse with moderate pleural effusion represent new findings. Mediastinum and cardiac silhouette are stable. Remainder of lung king are well aerated and demonstrate chronic age-related interstitial changes. Skeletal structures are intact. A pigtail type catheter is incompletely identified in the left upper abdomen incompletely visualized consistent with percutaneous nephrostomy tube. IMPRESSION: Left lower lobe atelectasis/consolidation and pleural effusion. <Electronically signed by Rome Ruff > 07/31/21 [id number]
[2021-07-31 13:41] LABS: BASO # 0.1 10^3/uL (0.0-0.2); BASO % 0.6 % (0.0-1.0); EOS # 0.2 10^3/uL (0.0-0.5); HEMATOCRIT 34.2 % (36.0-47.0); HEMOGLOBIN 10.9 g/dl (12.0-15.5); LYMPH # 1.2 10^3/uL (1.5-5.0); LYMPH % 15.2 % (24.0-44.0); MEAN CORPUSCULAR HEMOGLOBIN 27.7 pg (27.0-33.0); MEAN CORPUSCULAR HGB CONC 31.9 g/dl (32.0-36.5); MEAN CORPUSCULAR VOLUME 86.8 fl (80.0-96.0); MONO % 11.8 % (2.0-8.0); NEUTROPHILS # 5.6 10^3/uL (1.5-8.5); NEUTROPHILS % 70.2 % (36.0-66.0); PLATELET COUNT, AUTOMATED 417 10^3/uL (150-450); RED BLOOD COUNT 3.94 10^6/uL (4.00-5.40)
[2021-07-31 13:57] LABS: BLOOD UREA NITROGEN 13 MG/DL (7-18); CALCIUM LEVEL 9.3 MG/DL (8.8-10.2); CARBON DIOXIDE LEVEL 27 MEQ/L (21-32); CHLORIDE LEVEL 100 MEQ/L (98-107); GLOMERULAR FILTRATION RATE > 60.0 (>32); GLUCOSE, FASTING 107 MG/DL (70-100); POTASSIUM SERUM 4.5 MEQ/L (3.5-5.1); SODIUM LEVEL 135 MEQ/L (136-145)
== END ==
LOC: M PLAIMG 10:39
PROVIDERS: ATTEND Nurse Practitioner Adult Health
DX: J98.11 Atelectasis (principal); J18.1 Lobar pneumonia, unspecified organism; J90 Pleural effusion, not elsewhere classified; A41.9 Sepsis, unspecified organism; R05.1 Acute cough

== ENCOUNTER → 2021-08-21 | Outpatient (CLI) | payer MEDICARE, MEDICAID ==
[~2021-08-21] MED LIST changes: +FURO40TA2 PO; -LEVO500T3 PO; +LEVO500T4 PO
[2021-08-21 17:54] LABS: BASO % 0.5 % (0.0-1.0); EOS # 0.4 10^3/uL (0.0-0.5); EOS % 6.3 % (0.0-3.0); HEMATOCRIT 35.9 % (36.0-47.0); HEMOGLOBIN 11.4 g/dl (12.0-15.5); LYMPH # 1.7 10^3/uL (1.5-5.0); LYMPH % 26.6 % (24.0-44.0); MEAN CORPUSCULAR HEMOGLOBIN 27.9 pg (27.0-33.0); MEAN CORPUSCULAR HGB CONC 31.8 g/dl (32.0-36.5); MEAN CORPUSCULAR VOLUME 87.8 fl (80.0-96.0); MONO # 0.6 10^3/uL (0.0-0.8); MONO % 9.6 % (2.0-8.0); NEUTROPHILS # 3.5 10^3/uL (1.5-8.5); NEUTROPHILS % 56.7 % (36.0-66.0); PLATELET COUNT, AUTOMATED 181 10^3/uL (150-450); RED BLOOD COUNT 4.09 10^6/uL (4.00-5.40); WHITE BLOOD COUNT 6.2 10^3/uL (4.0-10.0)
[2021-08-21 18:06] LABS: ALBUMIN 2.8 GM/DL (3.2-5.2); ALT/SGPT 13 U/L (12-78); BILIRUBIN,TOTAL 0.3 MG/DL (0.2-1.0); BLOOD UREA NITROGEN 10 MG/DL (7-18); CALCIUM LEVEL 9.3 MG/DL (8.8-10.2); CARBON DIOXIDE LEVEL 26 MEQ/L (21-32); CHLORIDE LEVEL 101 MEQ/L (98-107); CREATININE FOR GFR 0.75 MG/DL (0.55-1.30); GLOMERULAR FILTRATION RATE > 60.0 (>32); GLUCOSE, FASTING 124 MG/DL (70-100); NT-PRO BNP 746 PG/ML (<450); POTASSIUM SERUM 4.2 MEQ/L (3.5-5.1); SODIUM LEVEL 136 MEQ/L (136-145); TOTAL PROTEIN 6.5 GM/DL (6.4-8.2)
[2021-08-21 18:13] LABS: INR 1.68; PROTHROMBIN TIME 20.2 SECONDS (12.7-14.5)
[2021-08-21 18:40] LABS: HEMOGLOBIN A1c 5.8 %
== END ==
LOC: M PLAIMG 14:17
PROVIDERS: ATTEND Family Medicine
DX: Z01.818 Encounter for other preprocedural examination (principal); Z79.01 Long term (current) use of anticoagulants

== ENCOUNTER → 2021-08-23 | Outpatient (REF) | payer MEDICARE, MEDICAID ==
[2021-08-23 23:42] LABS: APPEARANCE, URINE CLOUDY (CLEAR); BACTERIA, URINE AUTO 1+ (NEGATIVE); BILIRUBIN, URINE AUTO NEGATIVE (NEGATIVE); BLOOD, URINE BLOOD 3+ (NEGATIVE); COLOR, URINE YELLOW (YELLOW); GLUCOSE, URINE (UA) AUTO NEGATIVE (NEGATIVE); KETONE, URINE AUTO NEGATIVE (NEGATIVE); LEUKOCYTE ESTERASE, URINE AUTO 2+ (NEGATIVE); MUCUS, URINE SMALL (NEGATIVE); NITRITE, URINE AUTO NEGATIVE (NEGATIVE); PROTEIN, URINE AUTO 2+ mg/dL (NEGATIVE); RBC, URINE AUTO 5 /HPF (0-3); SPECIFIC GRAVITY URINE AUTO 1.005 (1.002-1.035); SQUAMOUS EPITHELIAL CELL UR AU 0 /HPF (0-6); UROBILINOGEN, URINE AUTO 0.2 mg/dL (0.0-2.0); WBC, URINE AUTO 32 /HPF (0-3)
== END ==
LOC: M SMT 11:45
PROVIDERS: ATTEND Urology
DX: N20.0 Calculus of kidney (principal)

== ENCOUNTER → 2021-08-24 | Outpatient (CLI) | payer MEDICARE, MEDICAID | LOC: M LABSMTC 09:35 | PROVIDERS: ATTEND Anesthesiology | DX: Z20.822 Contact with and (suspected) exposure to COVID-19 (principal) ==

== ENCOUNTER 2021-08-29 08:20 | Day surgery (SDC) | payer MEDICARE, MEDICAID ==
[~2021-08-29] VITALS: Ht 160 cm; Wt 79.8 kg
[~2021-08-29 08:20] MED LIST changes: +GENTAMICIN 100 MG in IV 1 EA IV ONE; +LR 1,000 ML IV ONE
[2021-08-29] MEDS ORDERED: MIDAZOLAM INJ 2MG/2ML VIAL (J2250 PER 1MG) As Ordered ONE (09:07)
[2021-08-29] MEDS ORDERED: fentaNYL 100 MCG/2 ML INJECTION (J3010) As Ordered ONE (09:07)
[2021-08-29] MEDS ORDERED: propofoL 200 MG/20 ML VIAL As Ordered ONE (09:10)
[2021-08-29] MEDS ORDERED: LIDOCAINE 2% 100MG/5ML SDV (FOR ANES.) As Ordered ONE (09:10)
[2021-08-29] MEDS ORDERED: CIPROFLOXACIN/D5W 400 MG/200 ML BAG (J0744) As Ordered ONE (09:17)
[2021-08-29] MEDS ORDERED: CIPROFLOXACIN 400 MG in IV 1 EA IV ONE (09:20)
[2021-08-29] MEDS ORDERED: LEVO500T4 PO (10:26)
[2021-08-29 10:55] VITALS: BP 150/68
== END 2021-08-29 11:15 | disposition home or self-care (01) ==
LOC: M SDC 08:20
PROVIDERS: ATTEND Urology
DX: N20.1 Calculus of ureter (principal); I12.9 Hypertensive chronic kidney disease with stage 1 through stage 4 chronic kidney disease, or unspecified chronic kidney disease; I48.91 Unspecified atrial fibrillation; I25.10 Atherosclerotic heart disease of native coronary artery without angina pectoris; D64.9 Anemia, unspecified; N20.0 Calculus of kidney; Z86.718 Personal history of other venous thrombosis and embolism; Z79.899 Other long term (current) drug therapy; Z79.01 Long term (current) use of anticoagulants; Z88.8 Allergy status to other drugs, medicaments and biological substances; Z88.5 Allergy status to narcotic agent
CPT/HCPCS: 50590; 74018; J0744; J2250; J3010

== ENCOUNTER → 2021-08-29 | Outpatient (CLI) | payer MEDICARE, MEDICAID | LOC: M RAD 08:00 | PROVIDERS: ATTEND Urology | DX: N20.0 Calculus of kidney (principal) ==

== ENCOUNTER → 2021-09-23 | Outpatient (CLI) | payer MEDICARE, MEDICAID ==
[~2021-09-23] MED LIST changes: -GENTAMICIN 100 MG in IV 1 EA IV ONE; -LR 1,000 ML IV ONE
== END ==
LOC: M PLARAD 10:39
PROVIDERS: ATTEND Physician Assistant
DX: Z48.816 Encounter for surgical aftercare following surgery on the genitourinary system (principal)

== ENCOUNTER → 2021-10-03 | Outpatient (CLI) | payer MEDICARE ==
[~2021-10-03] MED LIST changes: -D31000TA2 PO; +VITA100093 PO
== END ==
LOC: M RAD 11:00
PROVIDERS: ATTEND Urology
DX: Z85.51 Personal history of malignant neoplasm of bladder (principal)

== ENCOUNTER 2021-12-10 10:16 | Emergency (ER) | payer MEDICARE ==
[~2021-12-10] VITALS: Ht 157.5 cm; Wt 77.3 kg
[~2021-12-10 10:16] MED LIST changes: +POTA4.25 PO; +XARE15TA
[2021-12-10 13:35] LABS: BASO % 0.4 % (0.0-1.0); EOS % 0.5 % (0.0-3.0); HEMATOCRIT 38.8 % (36.0-47.0); HEMOGLOBIN 12.8 g/dl (12.0-15.5); LYMPH # 1.3 10^3/uL (1.5-5.0); LYMPH % 17.5 % (24.0-44.0); MEAN CORPUSCULAR HEMOGLOBIN 28.1 pg (27.0-33.0); MEAN CORPUSCULAR VOLUME 85.1 fl (80.0-96.0); MONO # 0.9 10^3/uL (0.0-0.8); MONO % 11.7 % (2.0-8.0); NEUTROPHILS # 5.2 10^3/uL (1.5-8.5); NEUTROPHILS % 69.6 % (36.0-66.0); PLATELET COUNT, AUTOMATED 148 10^3/uL (150-450); RED BLOOD COUNT 4.56 10^6/uL (4.00-5.40); WHITE BLOOD COUNT 7.4 10^3/uL (4.0-10.0)
[2021-12-10 13:53] LABS: C REACTIVE PROTEIN QUANTITATIV 0.65 MG/DL (0.00-0.30); CALCIUM LEVEL 9.7 MG/DL (8.8-10.2); CREATININE FOR GFR 0.97 MG/DL (0.55-1.30); POTASSIUM SERUM 4.4 MEQ/L (3.5-5.1); URIC ACID 3.6 MG/DL (2.6-6.0)
[2021-12-10 13:54] LABS: ERYTHROCYTE SEDIMENTATION RATE 32 mm/hr (0-30)
[2021-12-10 14:53] VITALS: BP 130/79
== END 2021-12-10 14:54 | disposition home or self-care (01) ==
LOC: M ED 10:16
DX: M17.11 Unilateral primary osteoarthritis, right knee (principal); R93.6 Abnormal findings on diagnostic imaging of limbs; Z88.6 Allergy status to analgesic agent; Z86.718 Personal history of other venous thrombosis and embolism; Z91.02 Food additives allergy status; Z91.09 Other allergy status, other than to drugs and biological substances; Z96.652 Presence of left artificial knee joint

== ENCOUNTER → 2021-12-20 | Outpatient (CLI) | payer MEDICARE | LOC: M SOG 08:21 | PROVIDERS: ATTEND Orthopaedic Surgery Adult Reconstructive Orthopaedic Surgery | DX: M25.561 Pain in right knee (principal) ==

== ENCOUNTER → 2022-01-08 | Outpatient (CLI) | payer MEDICARE | LOC: M PLAIMG 10:21 | PROVIDERS: ATTEND Physician Assistant | DX: N13.2 Hydronephrosis with renal and ureteral calculous obstruction (principal) ==

== ENCOUNTER 2022-02-22 11:08 | Inpatient (IN) | payer MEDICARE ==
[~2022-02-22] VITALS: Ht 157.5 cm; Wt 80.9 kg
[~2022-02-22 11:08] MED LIST changes: -XARE15TA
[2022-02-22] MEDS ORDERED: ACETAMINOPHEN TAB 650MG DOSE (2X325MG) PO ONE (12:35)
[2022-02-22] MEDS ORDERED: traMADol 50 MG TAB PO ONE (12:35)
[2022-02-22 12:53] LABS: BASO % 0.5 % (0.0-1.0); EOS # 0.2 10^3/uL (0.0-0.5); EOS % 2.1 % (0.0-3.0); HEMATOCRIT 36.8 % (36.0-47.0); HEMOGLOBIN 12.5 g/dl (12.0-15.5); LYMPH # 1.8 10^3/uL (1.5-5.0); LYMPH % 23.2 % (24.0-44.0); MEAN CORPUSCULAR VOLUME 85.4 fl (80.0-96.0); MONO # 0.9 10^3/uL (0.0-0.8); MONO % 12.1 % (2.0-8.0); NEUTROPHILS # 4.7 10^3/uL (1.5-8.5); NEUTROPHILS % 61.8 % (36.0-66.0); PLATELET COUNT, AUTOMATED 244 10^3/uL (150-450); RED BLOOD COUNT 4.31 10^6/uL (4.00-5.40); WHITE BLOOD COUNT 7.6 10^3/uL (4.0-10.0)
[2022-02-22 13:23] LABS: CALCIUM LEVEL 9.5 MG/DL (8.8-10.2); CREATININE FOR GFR 1.07 MG/DL (0.55-1.30); GLOMERULAR FILTRATION RATE 51.8 (>32); POTASSIUM SERUM 4.4 MEQ/L (3.5-5.1)
[2022-02-22] MEDS ORDERED: ACET650T15 PO (15:49)
[2022-02-22] MEDS ORDERED: OCUVTAB PO (15:49)
[2022-02-22] MEDS ORDERED: HOME MED LIST COMPLETE! XX SCH (15:50)
[2022-02-22] MEDS: ACETAMINOPHEN 500 MG TAB PO PRN (17:30)
[2022-02-22 21:30] VITALS: BP 159/83
[2022-02-23] MEDS: ACETAMINOPHEN 500 MG TAB PO PRN ×4 (00:59→23:18)
[2022-02-23 06:00] VITALS: BP 154/60
[2022-02-23] MEDS: CYANOCOBALAMIN 500 MCG TAB PO SCH (08:36)
[2022-02-23] MEDS: ASPIRIN 81MG ENTERIC TABLET PO SCH (08:36)
[2022-02-23] MEDS: RIVAROXABAN 15MG TAB (XARELTO) PO SCH (08:36)
[2022-02-23] MEDS: atenoloL 25 MG TAB PO SCH (08:38)
[2022-02-23 14:00] VITALS: BP 122/62
[2022-02-23 22:00] VITALS: BP 129/65
[2022-02-24] MEDS: ACETAMINOPHEN 500 MG TAB PO PRN ×3 (05:18→20:14)
[2022-02-24 06:00] VITALS: BP 146/75
[2022-02-24] MEDS: atenoloL 25 MG TAB PO SCH (08:48)
[2022-02-24] MEDS: CYANOCOBALAMIN 500 MCG TAB PO SCH (08:48)
[2022-02-24] MEDS: RIVAROXABAN 15MG TAB (XARELTO) PO SCH (08:48)
[2022-02-24] MEDS: ASPIRIN 81MG ENTERIC TABLET PO SCH (08:48)
[2022-02-24 14:00] VITALS: BP 145/76
[2022-02-24 22:00] VITALS: BP 129/66
[2022-02-24 23:31] LABS: APPEARANCE, URINE HAZY (CLEAR); BACTERIA, URINE AUTO NEGATIVE (NEGATIVE); BILIRUBIN, URINE AUTO NEGATIVE (NEGATIVE); BLOOD, URINE BLOOD 3+ (NEGATIVE); COLOR, URINE YELLOW (YELLOW); GLUCOSE, URINE (UA) AUTO NEGATIVE (NEGATIVE); KETONE, URINE AUTO NEGATIVE (NEGATIVE); LEUKOCYTE ESTERASE, URINE AUTO 2+ (NEGATIVE); NITRITE, URINE AUTO NEGATIVE (NEGATIVE); PROTEIN, URINE AUTO 1+ mg/dL (NEGATIVE); RBC, URINE AUTO TNTC /HPF (0-3); SPECIFIC GRAVITY URINE AUTO 1.014 (1.002-1.035); SQUAMOUS EPITHELIAL CELL UR AU 1 /HPF (0-6); UROBILINOGEN, URINE AUTO 0.2 mg/dL (0.0-2.0); WBC, URINE AUTO 23 /HPF (0-3)
[2022-02-25] MEDS: ACETAMINOPHEN 500 MG TAB PO PRN ×2 (04:24→10:44)
[2022-02-25 06:00] VITALS: BP 129/69
[2022-02-25 07:15] LABS: BLOOD UREA NITROGEN 33 MG/DL (7-18); CALCIUM LEVEL 9.3 MG/DL (8.8-10.2); CARBON DIOXIDE LEVEL 23 mmol/L (20-29); CHLORIDE LEVEL 106 MEQ/L (98-107); CREATININE FOR GFR 0.93 MG/DL (0.55-1.30); GLOMERULAR FILTRATION RATE > 60.0 (>32); GLUCOSE, FASTING 95 MG/DL (70-100); POTASSIUM SERUM 4.6 MEQ/L (3.5-5.1); SODIUM LEVEL 137 MEQ/L (136-145)
[2022-02-25 07:47] LABS: BASO % 0.5 % (0.0-1.0); EOS # 0.3 10^3/uL (0.0-0.5); EOS % 4.4 % (0.0-3.0); HEMATOCRIT 34.7 % (36.0-47.0); HEMOGLOBIN 11.5 g/dl (12.0-15.5); LYMPH # 1.8 10^3/uL (1.5-5.0); LYMPH % 30.8 % (24.0-44.0); MEAN CORPUSCULAR HEMOGLOBIN 28.3 pg (27.0-33.0); MEAN CORPUSCULAR HGB CONC 33.1 g/dl (32.0-36.5); MEAN CORPUSCULAR VOLUME 85.3 fl (80.0-96.0); MONO # 0.7 10^3/uL (0.0-0.8); MONO % 12.3 % (2.0-8.0); NEUTROPHILS # 2.9 10^3/uL (1.5-8.5); NEUTROPHILS % 51.8 % (36.0-66.0); PLATELET COUNT, AUTOMATED 242 10^3/uL (150-450); RED BLOOD COUNT 4.07 10^6/uL (4.00-5.40); WHITE BLOOD COUNT 5.7 10^3/uL (4.0-10.0)
[2022-02-25 08:25] LABS: MAGNESIUM LEVEL 1.9 MG/DL (1.8-2.4)
[2022-02-25 08:49] VITALS: BP 129/69
[2022-02-25] MEDS: CYANOCOBALAMIN 500 MCG TAB PO SCH (08:49)
[2022-02-25] MEDS: RIVAROXABAN 15MG TAB (XARELTO) PO SCH (08:49)
[2022-02-25] MEDS: atenoloL 25 MG TAB PO SCH (08:49)
[2022-02-25] MEDS: ASPIRIN 81MG ENTERIC TABLET PO SCH (08:49)
== END 2022-02-25 13:51 | disposition home health service (06) | DRG 556 ==
LOC: M ED 11:08 → EDBD 11:08 → M ED INP 15:32 → M MS5PR 21:05 → OBSVTOIN 02-23 15:25
PROVIDERS: ADMIT Family Medicine; ATTEND Internal Medicine
DX: M25.562 Pain in left knee (principal); B02.29 Other postherpetic nervous system involvement; R53.1 Weakness; R29.6 Repeated falls; Z96.652 Presence of left artificial knee joint; I48.91 Unspecified atrial fibrillation; I25.10 Atherosclerotic heart disease of native coronary artery without angina pectoris; I25.2 Old myocardial infarction; I13.10 Hypertensive heart and chronic kidney disease without heart failure, with stage 1 through stage 4 chronic kidney disease, or unspecified chronic kidney disease; N18.31 Chronic kidney disease, stage 3a; H35.30 Unspecified macular degeneration; Z85.51 Personal history of malignant neoplasm of bladder; Z85.3 Personal history of malignant neoplasm of breast; N26.1 Atrophy of kidney (terminal); I08.1 Rheumatic disorders of both mitral and tricuspid valves; Z87.442 Personal history of urinary calculi; Z90.12 Acquired absence of left breast and nipple; Z79.899 Other long term (current) drug therapy; Z79.01 Long term (current) use of anticoagulants; Z79.82 Long term (current) use of aspirin; Z88.5 Allergy status to narcotic agent; Z91.048 Other nonmedicinal substance allergy status; Z85.828 Personal history of other malignant neoplasm of skin; Z86.718 Personal history of other venous thrombosis and embolism

== ENCOUNTER → 2022-04-15 | Outpatient (CLI) | payer MEDICARE ==
[~2022-04-15] MED LIST changes: +ACET650T15 PO; +LEVO1TAB39 PO; -LEVO500T4 PO
[2022-04-15 14:03] LABS: CALCIUM LEVEL 9.7 MG/DL (8.8-10.2); CREATININE FOR GFR 0.99 MG/DL (0.55-1.30); GLOMERULAR FILTRATION RATE 56.5 (>32); POTASSIUM SERUM 4.2 MEQ/L (3.5-5.1)
== END ==
LOC: M PLALAB 10:24
PROVIDERS: ATTEND Physician Assistant
DX: Z85.51 Personal history of malignant neoplasm of bladder (principal)

== ENCOUNTER → 2022-04-18 | Outpatient (CLI) | payer MEDICARE ==
[~2022-04-18] MED LIST changes: +GASTROGRAFIN SOLUTION 30ML (Q9963) As Ordered ONE; +ISOVUE-370 76% 100ML VIAL As Ordered ONE
== END ==
LOC: M RAD 09:29
PROVIDERS: ATTEND Physician Assistant
DX: Z85.51 Personal history of malignant neoplasm of bladder (principal); Z85.3 Personal history of malignant neoplasm of breast
CPT/HCPCS: 71260; 74178; Q9963; Q9967

== ENCOUNTER 2022-04-22 15:08 | Emergency (ER) | payer MEDICARE ==
[~2022-04-22] VITALS: Ht 157.5 cm; Wt 80.0 kg
[~2022-04-22 15:08] MED LIST changes: -GASTROGRAFIN SOLUTION 30ML (Q9963) As Ordered ONE; -ISOVUE-370 76% 100ML VIAL As Ordered ONE
[2022-04-22 16:08] LABS: BASO % 0.4 % (0.0-1.0); EOS # 0.1 10^3/uL (0.0-0.5); HEMATOCRIT 36.9 % (36.0-47.0); HEMOGLOBIN 12.1 g/dl (12.0-15.5); LYMPH # 1.3 10^3/uL (1.5-5.0); LYMPH % 23.4 % (24.0-44.0); MEAN CORPUSCULAR HGB CONC 32.8 g/dl (32.0-36.5); MEAN CORPUSCULAR VOLUME 88.5 fl (80.0-96.0); MONO # 0.6 10^3/uL (0.0-0.8); MONO % 10.5 % (2.0-8.0); NEUTROPHILS # 3.6 10^3/uL (1.5-8.5); NEUTROPHILS % 63.3 % (36.0-66.0); PLATELET COUNT, AUTOMATED 156 10^3/uL (150-450); RED BLOOD COUNT 4.17 10^6/uL (4.00-5.40); WHITE BLOOD COUNT 5.6 10^3/uL (4.0-10.0)
[2022-04-22 16:46] LABS: CALCIUM LEVEL 9.9 MG/DL (8.8-10.2); CREATININE FOR GFR 1.09 MG/DL (0.55-1.30); GLOMERULAR FILTRATION RATE 50.5 (>32); POTASSIUM SERUM 4.6 MEQ/L (3.5-5.1)
[2022-04-22 19:14] VITALS: BP 180/80
== END 2022-04-22 19:16 | disposition home or self-care (01) ==
LOC: M ED 15:08
DX: R07.89 Other chest pain (principal); F41.9 Anxiety disorder, unspecified; I48.91 Unspecified atrial fibrillation; I25.2 Old myocardial infarction; N18.30 Chronic kidney disease, stage 3 unspecified; Z85.3 Personal history of malignant neoplasm of breast; Z88.5 Allergy status to narcotic agent; Z91.048 Other nonmedicinal substance allergy status; Z79.82 Long term (current) use of aspirin; Z79.899 Other long term (current) drug therapy

== ENCOUNTER → 2022-04-23 | Outpatient (CLI) | payer MEDICARE | LOC: M WHC 14:50 | PROVIDERS: ATTEND Nurse Practitioner | DX: Z85.3 Personal history of malignant neoplasm of breast (principal) ==

== ENCOUNTER → 2022-11-19 | Outpatient (CLI) | payer MEDICARE ==
[2022-11-19 10:28] LABS: BASO % 0.6 % (0.0-1.0); EOS # 0.1 10^3/uL (0.0-0.5); EOS % 2.3 % (0.0-3.0); HEMATOCRIT 43.6 % (36.0-47.0); HEMOGLOBIN 14.3 g/dl (12.0-15.5); LYMPH # 1.7 10^3/uL (1.5-5.0); LYMPH % 32.3 % (24.0-44.0); MEAN CORPUSCULAR HEMOGLOBIN 29.2 pg (27.0-33.0); MEAN CORPUSCULAR HGB CONC 32.8 g/dl (32.0-36.5); MEAN CORPUSCULAR VOLUME 89.2 fl (80.0-96.0); MONO # 0.5 10^3/uL (0.0-0.8); MONO % 9.4 % (2.0-8.0); NEUTROPHILS # 2.9 10^3/uL (1.5-8.5); PLATELET COUNT, AUTOMATED 135 10^3/uL (150-450); RED BLOOD COUNT 4.89 10^6/uL (4.00-5.40); WHITE BLOOD COUNT 5.2 10^3/uL (4.0-10.0)
[2022-11-19 10:47] LABS: CK-MB VALUE MASS 1.3 NG/ML (<3.6)
[2022-11-19 10:50] LABS: MB/CK RELATIVE INDEX 2.36 (< OR =4)
[2022-11-19 10:51] LABS: ALBUMIN 3.5 G/DL (3.2-5.2); BILIRUBIN,TOTAL 0.6 MG/DL (0.3-1.2); CALCIUM LEVEL 9.7 MG/DL (8.3-10.6); CHOLESTEROL RISK RATIO 2.94 (<5); CREATININE FOR GFR 1.03 MG/DL (0.55-1.30); HDL CHOLESTEROL 52.7 MG/DL (>40); LDL CHOLESTEROL 84.7 MG/DL (<100); NON-HDL-C 102.3 MG/DL; POTASSIUM SERUM 4.7 MMOL/L (3.5-5.1); TOTAL PROTEIN 6.6 G/DL (5.7-8.2)
[2022-11-19 10:55] LABS: FREE T4 1.05 NG/DL (0.89-1.76); THYROID STIMULATING HORMONE 5.411 uIU/ML (0.55-4.78)
== END ==
LOC: M PLALAB 08:36
PROVIDERS: ATTEND Family Medicine
DX: I48.0 Paroxysmal atrial fibrillation (principal); E78.00 Pure hypercholesterolemia, unspecified

== ENCOUNTER → 2022-11-28 | Outpatient (CLI) | payer MEDICARE | LOC: M PLAIMG 10:43 | PROVIDERS: ATTEND Urology | DX: Z85.51 Personal history of malignant neoplasm of bladder (principal) ==

== ENCOUNTER → 2023-03-11 | Outpatient (CLI) | payer MEDICARE ==
[2023-03-11 13:44] LABS: APPEARANCE, URINE CLOUDY (CLEAR); BACTERIA, URINE AUTO 1+ (NEGATIVE); BILIRUBIN, URINE AUTO NEGATIVE (NEGATIVE); BLOOD, URINE BLOOD 2+ (NEGATIVE); COLOR, URINE AMBER (YELLOW); GLUCOSE, URINE (UA) AUTO NEGATIVE (NEGATIVE); KETONE, URINE AUTO NEGATIVE (NEGATIVE); LEUKOCYTE ESTERASE, URINE AUTO 3+ (NEGATIVE); NITRITE, URINE AUTO NEGATIVE (NEGATIVE); PROTEIN, URINE AUTO 2+ mg/dL (NEGATIVE); RBC, URINE AUTO TNTC /HPF (0-3); SQUAMOUS EPITHELIAL CELL UR AU 0 /HPF (0-6); TRIPLE PHOSPHATE CRYSTALS LARGE; UROBILINOGEN, URINE AUTO 0.2 mg/dL (0.0-2.0); WBC, URINE AUTO 58 /HPF (0-3)
[2023-03-11 14:02] LABS: BASO % 0.8 % (0.0-1.0); EOS # 0.2 10^3/uL (0.0-0.5); HEMATOCRIT 38.5 % (36.0-47.0); HEMOGLOBIN 12.5 g/dl (12.0-15.5); LYMPH # 1.6 10^3/uL (1.5-5.0); LYMPH % 31.5 % (24.0-44.0); MEAN CORPUSCULAR HEMOGLOBIN 28.5 pg (27.0-33.0); MEAN CORPUSCULAR HGB CONC 32.5 g/dl (32.0-36.5); MEAN CORPUSCULAR VOLUME 87.9 fl (80.0-96.0); MONO # 0.6 10^3/uL (0.0-0.8); NEUTROPHILS # 2.6 10^3/uL (1.5-8.5); NEUTROPHILS % 51.5 % (36.0-66.0); PLATELET COUNT, AUTOMATED 132 10^3/uL (150-450); RED BLOOD COUNT 4.38 10^6/uL (4.00-5.40)
[2023-03-11 14:10] LABS: HEMOGLOBIN A1c 6.6 % (4.0-6.0)
[2023-03-11 14:20] LABS: CREATININE, URINE 48.2 MG/DL; MAU/CREAT RATIO 93.3 MCG/MG (0.0-30.0)
[2023-03-11 14:24] LABS: ALBUMIN 3.5 G/DL (3.2-5.2); BILIRUBIN,TOTAL 0.7 MG/DL (0.3-1.2); CHOLESTEROL RISK RATIO 2.56 (<5); CREATININE FOR GFR 1.04 MG/DL (0.55-1.30); FREE T4 1.01 NG/DL (0.89-1.76); GLOMERULAR FILTRATION RATE 53.4 (>32); HDL CHOLESTEROL 53.4 MG/DL (>40); LDL CHOLESTEROL 69.8 MG/DL (<100); NON-HDL-C 83.6 MG/DL; THYROID STIMULATING HORMONE 4.571 uIU/ML (0.55-4.78); TOTAL PROTEIN 6.7 G/DL (5.7-8.2)
== END ==
LOC: M PLALAB 09:11
PROVIDERS: ATTEND Physician Assistant
DX: E11.22 Type 2 diabetes mellitus with diabetic chronic kidney disease (principal)

== ENCOUNTER 2023-03-15 04:48 | Inpatient (IN) | payer MEDICARE ==
[~2023-03-15] VITALS: Ht 154.9 cm; Wt 80.7 kg
[2023-03-15] MEDS ORDERED: ASPIRIN 81MG CHEW TABLET PO ONE (06:10)
[2023-03-15] MEDS ORDERED: atenoloL 25 MG TAB PO ONE (06:10)
[2023-03-15 06:17] LABS: VENOUS BASE EXCESS 0.2 (-2.0-2.0); VENOUS HCO3 24.7 MMOL/L (23.0-27.0); VENOUS O2 SATURATION 80.2 % (60.0-80.0); VENOUS PARTIAL PRESSURE CO2 39.9 mmHg (38.0-50.0); VENOUS PARTIAL PRESSURE O2 43.2 mmHg (30.0-50.0); VENOUS STANDARD HCO3 24.2 MMOL/L; VENOUS TOTAL CO2 25.9 MMOL/L (24.0-28.0)
[2023-03-15 06:25] LABS: HEMATOCRIT 37.1 % (36.0-47.0); HEMOGLOBIN 12.4 g/dl (12.0-15.5); MEAN CORPUSCULAR HEMOGLOBIN 28.6 pg (27.0-33.0); MEAN CORPUSCULAR HGB CONC 33.4 g/dl (32.0-36.5); MEAN CORPUSCULAR VOLUME 85.7 fl (80.0-96.0); PLATELET COUNT, AUTOMATED 135 10^3/uL (150-450); RED BLOOD COUNT 4.33 10^6/uL (4.00-5.40); WHITE BLOOD COUNT 7.3 10^3/uL (4.0-10.0)
[2023-03-15 06:45] LABS: INR 1.3; PROTHROMBIN TIME 15.8 SECONDS (12.5-14.5)
[2023-03-15 06:46] LABS: PARTIAL THROMBOPLASTIN TIME 33.5 SECONDS (24.8-34.2)
[2023-03-15] MEDS: METOPROLOL 5 MG/5 ML VIAL IV PRN ×3 (06:52→08:18)
[2023-03-15 06:56] LABS: LYMPHOCYTES 13 % (16-44); MONOCYTES 4 % (0-5); NEUTROPHILS 83 % (28-66)
[2023-03-15 06:58] LABS: OVALOCYTES 1+; PLATELET ESTIMATE DECREASED (NORMAL)
[2023-03-15 07:05] LABS: ALBUMIN 3.7 G/DL (3.2-5.2); ALKALINE PHOSPHATASE 69 U/L (46-116); ALT/SGPT 47 U/L (7.0-40); AST/SGOT 38 U/L (<34); BILIRUBIN,DIRECT 0.2 MG/DL (<0.4); BILIRUBIN,TOTAL 0.5 MG/DL (0.3-1.2); BLOOD UREA NITROGEN 24 MG/DL (9-23); CALCIUM LEVEL 9.9 MG/DL (8.3-10.6); CARBON DIOXIDE LEVEL 27 MMOL/L (20-31); CHLORIDE LEVEL 100 MMOL/L (98-107); CREATININE FOR GFR 0.87 MG/DL (0.55-1.30); GLOMERULAR FILTRATION RATE > 60.0 (>32); GLUCOSE, FASTING 158 MG/DL (74-106); POTASSIUM SERUM 5.3 MMOL/L (3.5-5.1); SODIUM LEVEL 133 MMOL/L (136-145); TOTAL PROTEIN 6.8 G/DL (5.7-8.2)
[2023-03-15 07:11] LABS: CPK CREATINE PHOSPHOKINASE 38 U/L (34-145); MB/CK RELATIVE INDEX 2.63 (< OR =4)
[2023-03-15] MEDS ORDERED: ISOVUE-370 76% 100ML VIAL As Ordered ONE (07:25)
[2023-03-15 08:21] LABS: CK-MB VALUE MASS < 1.0 NG/ML (<3.6)
[2023-03-15 08:24] LABS: CPK CREATINE PHOSPHOKINASE 39 U/L (34-145); MB/CK RELATIVE INDEX 2.56 (< OR =4)
[2023-03-15] MEDS ORDERED: FUROSEMIDE 40MG/4ML VIAL IV ONE (08:40)
[2023-03-15] MEDS ORDERED: MOM 30ML SUSPENSION UDC PO PRN (09:30)
[2023-03-15] MEDS ORDERED: MAALOX 30 ML SUSP *UDC PO PRN (09:30)
[2023-03-15] MEDS ORDERED: ACETAMINOPHEN TAB 650MG DOSE (2X325MG) PO PRN (09:30)
[2023-03-15] MEDS ORDERED: MED REC IN PROGRESS XX SCH (09:50)
[2023-03-15] MEDS ORDERED: FURO40TA2 PO (10:10)
[2023-03-15] MEDS ORDERED: METH4PACK PO (10:10)
[2023-03-15] MEDS ORDERED: HOME MED LIST COMPLETE! XX SCH (10:20)
[2023-03-15 11:07] LABS: HEPATITIS C VIRUS ABY INDEX 0.15 INDEX (<0.8)
[2023-03-15 11:08] LABS: HEPATITIS B CORE ANTIBODY IGM NEGATIVE (NEGATIVE)
[2023-03-15 13:47] VITALS: BP 142/86; TEMP 97.3; O2SAT 97
[2023-03-15 15:42] LABS: BLOOD UREA NITROGEN 27 MG/DL (9-23); CALCIUM LEVEL 9.9 MG/DL (8.3-10.6); CARBON DIOXIDE LEVEL 25 MMOL/L (20-31); CHLORIDE LEVEL 100 MMOL/L (98-107); GLOMERULAR FILTRATION RATE > 60.0 (>32); GLUCOSE, FASTING 152 MG/DL (74-106); MAGNESIUM LEVEL 1.9 MG/DL (1.8-2.4); POTASSIUM SERUM 4.1 MMOL/L (3.5-5.1); SODIUM LEVEL 135 MMOL/L (136-145)
[2023-03-15 16:57] VITALS: BP 138/82; TEMP 97; O2SAT 99
[2023-03-15] MEDS: CYANOCOBALAMIN 500 MCG TAB PO SCH (17:33)
[2023-03-15] MEDS: OCUVITE 1 TAB PO SCH (17:33)
[2023-03-15] MEDS: FUROSEMIDE 40MG/4ML VIAL IV SCH (17:34)
[2023-03-15] MEDS: RIVAROXABAN 15MG TAB (XARELTO) PO SCH (17:34)
[2023-03-15 20:00] VITALS: BP 132/84; TEMP 97.9; O2SAT 97
[2023-03-15] MEDS: DOCUSATE SODIUM 100MG CAPSULE PO SCH (21:02)
[2023-03-15] MEDS: VITAMIN D 1,000 INTERNATIONAL UNITS TABLET PO SCH (21:02)
[2023-03-15] MEDS ORDERED: PILL CUTTER 1 EACH XX ONE (21:03)
[2023-03-15] MEDS: atenoloL 25 MG TAB PO SCH (21:03)
[2023-03-15 23:46] VITALS: BP 126/74; TEMP 96.7; O2SAT 96
[2023-03-16] VITALS (8 sets, daily range): BP systolic 92–118; BP diastolic 54–82; TEMP 96.8–99.5; O2SAT 95–97
[2023-03-16 04:29] LABS: BASO % 0.4 % (0.0-1.0); EOS # 0.1 10^3/uL (0.0-0.5); EOS % 0.9 % (0.0-3.0); HEMATOCRIT 36.9 % (36.0-47.0); HEMOGLOBIN 12.5 g/dl (12.0-15.5); LYMPH # 1.6 10^3/uL (1.5-5.0); LYMPH % 21.1 % (24.0-44.0); MEAN CORPUSCULAR HEMOGLOBIN 28.8 pg (27.0-33.0); MEAN CORPUSCULAR HGB CONC 33.9 g/dl (32.0-36.5); MONO # 0.9 10^3/uL (0.0-0.8); MONO % 11.3 % (2.0-8.0); PLATELET COUNT, AUTOMATED 134 10^3/uL (150-450); RED BLOOD COUNT 4.34 10^6/uL (4.00-5.40); WHITE BLOOD COUNT 7.5 10^3/uL (4.0-10.0)
[2023-03-16 04:54] LABS: ALBUMIN 3.2 G/DL (3.2-5.2); ALKALINE PHOSPHATASE 65 U/L (46-116); ALT/SGPT 40 U/L (7.0-40); AST/SGOT 24 U/L (<34); BILIRUBIN,TOTAL 0.7 MG/DL (0.3-1.2); BLOOD UREA NITROGEN 30 MG/DL (9-23); CALCIUM LEVEL 9.4 MG/DL (8.3-10.6); CARBON DIOXIDE LEVEL 29 MMOL/L (20-31); CHLORIDE LEVEL 99 MMOL/L (98-107); CREATININE FOR GFR 0.92 MG/DL (0.55-1.30); GLOMERULAR FILTRATION RATE > 60.0 (>32); GLUCOSE, FASTING 123 MG/DL (74-106); MAGNESIUM LEVEL 1.7 MG/DL (1.8-2.4); POTASSIUM SERUM 3.6 MMOL/L (3.5-5.1); SODIUM LEVEL 137 MMOL/L (136-145); TOTAL PROTEIN 6.2 G/DL (5.7-8.2)
[2023-03-16] MEDS ORDERED: POTASSIUM CHLORIDE 10MEQ SR TABLET PO ONE (06:45)
[2023-03-16] MEDS ORDERED: MAG SULF 1GM/100ML (MAG RUN) 1 GM in IV 1 EA IV ONE (07:10)
[2023-03-16] MEDS: FUROSEMIDE 40MG/4ML VIAL IV SCH (08:50)
[2023-03-16] MEDS: ASPIRIN 81MG ENTERIC TABLET PO SCH (08:51)
[2023-03-16] MEDS: OCUVITE 1 TAB PO SCH (08:51)
[2023-03-16] MEDS: CYANOCOBALAMIN 500 MCG TAB PO SCH (08:52)
[2023-03-16] MEDS: DOCUSATE SODIUM 100MG CAPSULE PO SCH ×2 (08:52→20:36)
[2023-03-16] MEDS: RIVAROXABAN 15MG TAB (XARELTO) PO SCH (18:39)
[2023-03-16] MEDS: VITAMIN D 1,000 INTERNATIONAL UNITS TABLET PO SCH (20:36)
[2023-03-16] MEDS: atenoloL 25 MG TAB PO SCH (20:37)
[2023-03-17 04:44] VITALS: BP 104/67; TEMP 96.6; O2SAT 96
[2023-03-17 05:55] LABS: BASO % 0.4 % (0.0-1.0); EOS # 0.2 10^3/uL (0.0-0.5); EOS % 3.6 % (0.0-3.0); HEMOGLOBIN 12.6 g/dl (12.0-15.5); MEAN CORPUSCULAR HEMOGLOBIN 28.4 pg (27.0-33.0); MEAN CORPUSCULAR HGB CONC 33.2 g/dl (32.0-36.5); MEAN CORPUSCULAR VOLUME 85.6 fl (80.0-96.0); MONO # 0.8 10^3/uL (0.0-0.8); MONO % 11.9 % (2.0-8.0); NEUTROPHILS # 3.7 10^3/uL (1.5-8.5); PLATELET COUNT, AUTOMATED 139 10^3/uL (150-450); RED BLOOD COUNT 4.44 10^6/uL (4.00-5.40); WHITE BLOOD COUNT 6.8 10^3/uL (4.0-10.0)
[2023-03-17 06:31] LABS: ALBUMIN 2.9 G/DL (3.2-5.2); BILIRUBIN,TOTAL 0.5 MG/DL (0.3-1.2); CALCIUM LEVEL 9.2 MG/DL (8.3-10.6); CREATININE FOR GFR 0.94 MG/DL (0.55-1.30); MAGNESIUM LEVEL 1.8 MG/DL (1.8-2.4); POTASSIUM SERUM 4.1 MMOL/L (3.5-5.1); TOTAL PROTEIN 5.7 G/DL (5.7-8.2)
[2023-03-17 08:13] VITALS: BP 117/69; TEMP 97.3; O2SAT 98
[2023-03-17] MEDS: DOCUSATE SODIUM 100MG CAPSULE PO SCH (09:00)
[2023-03-17] MEDS ORDERED: FUROSEMIDE 40MG/4ML VIAL IV SCH (09:00)
[2023-03-17] MEDS ORDERED: FURO40TA2 PO (09:52)
[2023-03-17] MEDS ORDERED: ATEN25TA PO (09:52)
[2023-03-17] MEDS: OCUVITE 1 TAB PO SCH (10:29)
[2023-03-17] MEDS: CYANOCOBALAMIN 500 MCG TAB PO SCH (10:29)
[2023-03-17] MEDS: ASPIRIN 81MG ENTERIC TABLET PO SCH (10:29)
[2023-03-17] MEDS ORDERED: METO25TA PO (11:19)
[2023-03-17 11:39] VITALS: BP 124/65; TEMP 98; O2SAT 97
[2023-03-17 11:42] VITALS: BP 168/90; TEMP 98.1; O2SAT 94
== END 2023-03-17 14:00 | disposition home health service (06) | DRG 291 ==
LOC: M ED 04:48 → M ED INP 09:30 → M PCU 12:40
PROVIDERS: ADMIT Internal Medicine; ATTEND Internal Medicine
PROC: B246ZZZ Ultrasonography of Right and Left Heart (ICD-10-PCS; principal; 2023-03-16)
DX: I13.0 Hypertensive heart and chronic kidney disease with heart failure and stage 1 through stage 4 chronic kidney disease, or unspecified chronic kidney disease (principal); I50.23 Acute on chronic systolic (congestive) heart failure; E87.1 Hypo-osmolality and hyponatremia; I08.1 Rheumatic disorders of both mitral and tricuspid valves; I25.10 Atherosclerotic heart disease of native coronary artery without angina pectoris; I48.91 Unspecified atrial fibrillation; N18.30 Chronic kidney disease, stage 3 unspecified; R74.01 Elevation of levels of liver transaminase levels; E83.42 Hypomagnesemia; E87.5 Hyperkalemia; D69.6 Thrombocytopenia, unspecified; Z85.51 Personal history of malignant neoplasm of bladder; Z85.3 Personal history of malignant neoplasm of breast; Z90.12 Acquired absence of left breast and nipple; Z96.652 Presence of left artificial knee joint; Z90.49 Acquired absence of other specified parts of digestive tract; Z95.5 Presence of coronary angioplasty implant and graft; Z79.01 Long term (current) use of anticoagulants; Z86.718 Personal history of other venous thrombosis and embolism; Z79.82 Long term (current) use of aspirin; Z79.899 Other long term (current) drug therapy; Z88.5 Allergy status to narcotic agent; Z91.048 Other nonmedicinal substance allergy status; Z91.02 Food additives allergy status

== ENCOUNTER 2023-03-19 19:19 | Emergency (ER) | payer MEDICARE ==
[~2023-03-19] VITALS: Ht 154.9 cm; Wt 79.1 kg
[~2023-03-19 19:19] MED LIST changes: -VALI2TAB PO
[2023-03-19 19:35] VITALS: TEMP 97.6
[2023-03-19 20:25] LABS: BASO % 0.4 % (0.0-1.0); EOS # 0.3 10^3/uL (0.0-0.5); EOS % 4.3 % (0.0-3.0); HEMATOCRIT 39.2 % (36.0-47.0); HEMOGLOBIN 13.2 g/dl (12.0-15.5); LYMPH # 1.9 10^3/uL (1.5-5.0); LYMPH % 25.3 % (24.0-44.0); MEAN CORPUSCULAR HEMOGLOBIN 28.5 pg (27.0-33.0); MEAN CORPUSCULAR HGB CONC 33.7 g/dl (32.0-36.5); MEAN CORPUSCULAR VOLUME 84.7 fl (80.0-96.0); MONO # 0.8 10^3/uL (0.0-0.8); MONO % 10.1 % (2.0-8.0); NEUTROPHILS # 4.5 10^3/uL (1.5-8.5); NEUTROPHILS % 59.6 % (36.0-66.0); PLATELET COUNT, AUTOMATED 165 10^3/uL (150-450); RED BLOOD COUNT 4.63 10^6/uL (4.00-5.40); WHITE BLOOD COUNT 7.5 10^3/uL (4.0-10.0)
[2023-03-19 20:48] LABS: CK-MB VALUE MASS < 1.0 NG/ML (<3.6)
[2023-03-19 20:50] LABS: BLOOD UREA NITROGEN 37 MG/DL (9-23); CALCIUM LEVEL 9.4 MG/DL (8.3-10.6); CARBON DIOXIDE LEVEL 24 MMOL/L (20-31); CHLORIDE LEVEL 100 MMOL/L (98-107); CREATININE FOR GFR 1.03 MG/DL (0.55-1.30); GLUCOSE, FASTING 116 MG/DL (74-106); POTASSIUM SERUM 3.6 MMOL/L (3.5-5.1); SODIUM LEVEL 134 MMOL/L (136-145)
[2023-03-19 20:51] LABS: CPK CREATINE PHOSPHOKINASE 42 U/L (34-145); MB/CK RELATIVE INDEX 2.38 (< OR =4)
[2023-03-19] MEDS ORDERED: MORPHINE 2 MG/ML 1ML VIAL IV ONE (21:00)
[2023-03-19] MEDS ORDERED: ONDANSETRON 4MG 2ML VIAL IV ONE (21:00)
[2023-03-19] MEDS ORDERED: FUROSEMIDE 40MG/4ML VIAL IV ONE (21:35)
[2023-03-19 22:15] LABS: CK-MB VALUE MASS < 1.0 NG/ML (<3.6)
[2023-03-19 22:17] LABS: CPK CREATINE PHOSPHOKINASE 46 U/L (34-145); MB/CK RELATIVE INDEX 2.17 (< OR =4)
[2023-03-19 22:32] VITALS: BP 120/72
[2023-03-19 22:45] VITALS: O2SAT 100
[2023-03-19] MEDS ORDERED: VALI2TAB PO (22:55)
[2023-03-19] MEDS ORDERED: diazePAM 2 MG TAB PO ONE (23:00)
== END 2023-03-19 23:35 | disposition home or self-care (01) ==
LOC: M ED 19:19
DX: R07.89 Other chest pain (principal); Z79.899 Other long term (current) drug therapy; Z79.82 Long term (current) use of aspirin; I11.9 Hypertensive heart disease without heart failure; I48.91 Unspecified atrial fibrillation; I50.20 Unspecified systolic (congestive) heart failure; I50.30 Unspecified diastolic (congestive) heart failure; I25.2 Old myocardial infarction; Z79.02 Long term (current) use of antithrombotics/antiplatelets
CPT/HCPCS: 36415; 71045; 80048; 80053; 82550; 82553; 83880; 84484; 85025; 93005; 93041; 94760; 96374; 96375; 99285; J2405

== ENCOUNTER → 2023-03-19 | Outpatient (CLI) | payer MEDICARE ==
[~2023-03-19] MED LIST changes: +METH4PACK PO; +METO25TA PO; +VALI2TAB PO
[2023-03-19 16:37] LABS: BASO % 0.4 % (0.0-1.0); EOS # 0.3 10^3/uL (0.0-0.5); HEMATOCRIT 42.3 % (36.0-47.0); HEMOGLOBIN 13.8 g/dl (12.0-15.5); LYMPH # 1.7 10^3/uL (1.5-5.0); LYMPH % 23.3 % (24.0-44.0); MEAN CORPUSCULAR HEMOGLOBIN 28.6 pg (27.0-33.0); MEAN CORPUSCULAR HGB CONC 32.6 g/dl (32.0-36.5); MEAN CORPUSCULAR VOLUME 87.8 fl (80.0-96.0); MONO # 0.6 10^3/uL (0.0-0.8); MONO % 8.8 % (2.0-8.0); NEUTROPHILS # 4.5 10^3/uL (1.5-8.5); NEUTROPHILS % 63.2 % (36.0-66.0); PLATELET COUNT, AUTOMATED 178 10^3/uL (150-450); RED BLOOD COUNT 4.82 10^6/uL (4.00-5.40); WHITE BLOOD COUNT 7.2 10^3/uL (4.0-10.0)
[2023-03-19 17:09] LABS: CPK CREATINE PHOSPHOKINASE 30 U/L (34-145)
[2023-03-19 17:11] LABS: ALBUMIN 3.3 G/DL (3.2-5.2); ALKALINE PHOSPHATASE 77 U/L (46-116); ALT/SGPT 29 U/L (7.0-40); AST/SGOT 17 U/L (<34); BILIRUBIN,TOTAL 0.8 MG/DL (0.3-1.2); BLOOD UREA NITROGEN 35 MG/DL (9-23); CALCIUM LEVEL 9.6 MG/DL (8.3-10.6); CARBON DIOXIDE LEVEL 27 MMOL/L (20-31); CHLORIDE LEVEL 99 MMOL/L (98-107); CK-MB VALUE MASS < 1.0 NG/ML (<3.6); CREATININE FOR GFR 1.02 MG/DL (0.55-1.30); GLOMERULAR FILTRATION RATE 54.6 (>32); GLUCOSE, FASTING 115 MG/DL (74-106); MB/CK RELATIVE INDEX 3.33 (< OR =4); POTASSIUM SERUM 3.8 MMOL/L (3.5-5.1); SODIUM LEVEL 134 MMOL/L (136-145); TOTAL PROTEIN 6.6 G/DL (5.7-8.2)
== END ==
LOC: M PLALAB 14:22
PROVIDERS: ATTEND Physician Assistant
DX: I50.30 Unspecified diastolic (congestive) heart failure (principal)

== ENCOUNTER → 2023-06-10 | Outpatient (CLI) | payer MEDICARE ==
[~2023-06-10] MED LIST changes: +DIGO0.123 PO; +JARD1TAB PO; +VALI2TAB PO
== END ==
LOC: M RAD 11:48
PROVIDERS: ATTEND Urology
DX: Z85.51 Personal history of malignant neoplasm of bladder (principal)

== ENCOUNTER 2023-06-17 06:57 | Day surgery (SDC) | payer MEDICARE ==
[~2023-06-17] VITALS: Ht 157.5 cm; Wt 81.6 kg
[~2023-06-17 06:57] MED LIST changes: +LIDOCAINE W/EPINEPHRINE 1% 20ML VIAL XX ONE; +SODIUM BICARBONATE 8.4% INJ 50MEQ 50ML VIAL XX ONE
[2023-06-17] MEDS ORDERED: BACITRACIN OINTMENT 30GM TUBE As Ordered ONE (08:51)
[2023-06-17 09:44] VITALS: BP 128/82; TEMP 97.9; O2SAT 98
== END 2023-06-17 09:55 | disposition home or self-care (01) ==
LOC: M SDC 06:57
PROVIDERS: ATTEND Orthopaedic Surgery Hand Surgery
DX: M65.341 Trigger finger, right ring finger (principal); I25.2 Old myocardial infarction; Z79.01 Long term (current) use of anticoagulants; Z79.899 Other long term (current) drug therapy; Z85.3 Personal history of malignant neoplasm of breast; Z85.51 Personal history of malignant neoplasm of bladder; Z95.5 Presence of coronary angioplasty implant and graft

== ENCOUNTER → 2023-07-08 | Outpatient (CLI) | payer MEDICARE ==
[~2023-07-08] MED LIST changes: +GASTROGRAFIN SOLUTION 30ML As Ordered ONE; +ISOVUE-370 76% 100ML VIAL As Ordered ONE; +LEVO1TAB38 PO; -LIDOCAINE W/EPINEPHRINE 1% 20ML VIAL XX ONE; -SODIUM BICARBONATE 8.4% INJ 50MEQ 50ML VIAL XX ONE
== END ==
LOC: M RAD 13:19
PROVIDERS: ATTEND Family Medicine
DX: R19.4 Change in bowel habit (principal); R14.2 Eructation; R82.90 Unspecified abnormal findings in urine
CPT/HCPCS: 36415; 74177; 80053; 82150; 83690; 85025; Q9963; Q9967

== ENCOUNTER → 2023-07-08 | Outpatient (CLI) | payer MEDICARE ==
[~2023-07-08] MED LIST changes: -GASTROGRAFIN SOLUTION 30ML As Ordered ONE; -ISOVUE-370 76% 100ML VIAL As Ordered ONE
[2023-07-08 16:15] LABS: BASO % 0.2 % (0.0-1.0); HEMATOCRIT 41.1 % (36.0-47.0); HEMOGLOBIN 13.3 g/dl (12.0-15.5); LYMPH # 1.3 10^3/uL (1.5-5.0); LYMPH % 11.2 % (24.0-44.0); MEAN CORPUSCULAR HEMOGLOBIN 29.3 pg (27.0-33.0); MEAN CORPUSCULAR HGB CONC 32.4 g/dl (32.0-36.5); MEAN CORPUSCULAR VOLUME 90.5 fl (80.0-96.0); MONO % 8.6 % (2.0-8.0); NEUTROPHILS # 9.3 10^3/uL (1.5-8.5); NEUTROPHILS % 79.3 % (36.0-66.0); PLATELET COUNT, AUTOMATED 217 10^3/uL (150-450); RED BLOOD COUNT 4.54 10^6/uL (4.00-5.40); WHITE BLOOD COUNT 11.7 10^3/uL (4.0-10.0)
[2023-07-08 16:21] LABS: ALBUMIN 2.9 G/DL (3.2-5.2); BILIRUBIN,TOTAL 0.7 MG/DL (0.3-1.2); CALCIUM LEVEL 9.3 MG/DL (8.3-10.6); CREATININE FOR GFR 1.06 MG/DL (0.55-1.30); GLOMERULAR FILTRATION RATE 52.1 (>32); POTASSIUM SERUM 4.2 MMOL/L (3.5-5.1); TOTAL PROTEIN 6.6 G/DL (5.7-8.2)
== END ==
LOC: M PLALAB 12:34
PROVIDERS: ATTEND Family Medicine
DX: R19.4 Change in bowel habit (principal); R82.90 Unspecified abnormal findings in urine

== ENCOUNTER 2023-07-10 10:26 | Emergency (ER) | payer MEDICARE ==
[~2023-07-10] VITALS: Ht 157.5 cm; Wt 79.5 kg
[2023-07-10] MEDS ORDERED: JARD1TAB PO (10:42)
[2023-07-10] MEDS ORDERED: MED REC IN PROGRESS XX SCH (11:50)
[2023-07-10 12:53] LABS: HEMATOCRIT 37.5 % (36.0-47.0); HEMOGLOBIN 12.4 g/dl (12.0-15.5); MEAN CORPUSCULAR HEMOGLOBIN 29.3 pg (27.0-33.0); MEAN CORPUSCULAR HGB CONC 33.1 g/dl (32.0-36.5); MEAN CORPUSCULAR VOLUME 88.7 fl (80.0-96.0); PLATELET COUNT, AUTOMATED 256 10^3/uL (150-450); RED BLOOD COUNT 4.23 10^6/uL (4.00-5.40); WHITE BLOOD COUNT 8.9 10^3/uL (4.0-10.0)
[2023-07-10] MEDS ORDERED: HOME MED LIST COMPLETE! XX SCH (13:15)
[2023-07-10 13:19] LABS: INR 2.63; PROTHROMBIN TIME 27.1 SECONDS (12.5-14.5)
[2023-07-10 13:20] LABS: PARTIAL THROMBOPLASTIN TIME 50.4 SECONDS (24.8-34.2)
[2023-07-10 13:22] LABS: DIGOXIN LEVEL 1.2 NG/ML (0.8-2.0)
[2023-07-10 13:24] LABS: ALBUMIN 2.6 G/DL (3.2-5.2); BILIRUBIN,DIRECT 0.2 MG/DL (<0.4); BILIRUBIN,TOTAL 0.5 MG/DL (0.3-1.2); CREATININE FOR GFR 0.96 MG/DL (0.55-1.30); GLOMERULAR FILTRATION RATE 58.4 (>32); TOTAL PROTEIN 6.1 G/DL (5.7-8.2)
[2023-07-10 14:22] LABS: ATYPICAL LYMPH 5 % (0-5); EOSINOPHILS 1 % (0-3); LYMPHOCYTES 15 % (16-44); MONOCYTES 2 % (0-5); NEUTROPHILS 77 % (28-66)
[2023-07-10 14:23] LABS: PLATELET ESTIMATE NORMAL (NORMAL)
[2023-07-10 14:36] VITALS: BP 129/83; TEMP 98.3; O2SAT 99
== END 2023-07-10 14:56 | disposition home or self-care (01) ==
LOC: M ED 10:26
DX: N10 Acute pyelonephritis (principal); N39.0 Urinary tract infection, site not specified; I48.91 Unspecified atrial fibrillation; I25.2 Old myocardial infarction; Z95.5 Presence of coronary angioplasty implant and graft; Z85.51 Personal history of malignant neoplasm of bladder; Z85.3 Personal history of malignant neoplasm of breast; Z79.82 Long term (current) use of aspirin; Z79.01 Long term (current) use of anticoagulants; Z79.899 Other long term (current) drug therapy; Z88.5 Allergy status to narcotic agent; Z91.89 Other specified personal risk factors, not elsewhere classified; Z91.02 Food additives allergy status

== ENCOUNTER → 2023-07-23 | Outpatient (CLI) | payer MEDICARE | LOC: M RAD 09:52 | PROVIDERS: ATTEND Urology | DX: N13.30 Unspecified hydronephrosis (principal) ==

== ENCOUNTER → 2023-07-25 | Outpatient (REF) | payer MEDICARE | LOC: M LAB REF 17:54 | PROVIDERS: ATTEND Physician Assistant Medical | DX: B34.9 Viral infection, unspecified (principal) ==

== ENCOUNTER → 2023-11-11 | Outpatient (CLI) | payer MEDICARE | LOC: M RAD 09:23 | PROVIDERS: ATTEND Urology | DX: Z85.51 Personal history of malignant neoplasm of bladder (principal) ==

== ENCOUNTER 2024-01-01 20:58 | Emergency (ER) | payer MEDICARE ==
[~2024-01-01] VITALS: Ht 157.5 cm; Wt 74.5 kg
[2024-01-01 21:47] LABS: BASO % 0.4 % (0.0-1.0); EOS # 0.1 10^3/uL (0.0-0.5); EOS % 1.5 % (0.0-3.0); HEMATOCRIT 41.3 % (36.0-47.0); HEMOGLOBIN 13.5 g/dl (12.0-15.5); MEAN CORPUSCULAR HEMOGLOBIN 29.4 pg (27.0-33.0); MEAN CORPUSCULAR HGB CONC 32.7 g/dl (32.0-36.5); MONO # 0.8 10^3/uL (0.0-0.8); MONO % 10.7 % (2.0-8.0); NEUTROPHILS # 4.3 10^3/uL (1.5-8.5); NEUTROPHILS % 59.1 % (36.0-66.0); PLATELET COUNT, AUTOMATED 141 10^3/uL (150-450); RED BLOOD COUNT 4.59 10^6/uL (4.00-5.40); WHITE BLOOD COUNT 7.2 10^3/uL (4.0-10.0)
[2024-01-01 22:03] LABS: INR 1.73; PROTHROMBIN TIME 19.7 SECONDS (12.5-14.5)
[2024-01-02] MEDS: METOPROLOL TART 25 MG TABLET PO ONE (00:08)
[2024-01-02 00:09] VITALS: BP 168/97
[2024-01-02] MEDS: METOPROLOL 5 MG/5 ML VIAL IV STA (00:09)
[2024-01-02 00:30] VITALS: TEMP 97.8
[2024-01-02 01:03] LABS: DIGOXIN LEVEL 0.9 NG/ML (0.8-2.0)
[2024-01-02 01:12] LABS: ALKALINE PHOSPHATASE 85 U/L (46-116); ALT/SGPT 23 U/L (7.0-40); AST/SGOT 40 U/L (<34); BILIRUBIN,TOTAL 0.5 MG/DL (0.3-1.2); BLOOD UREA NITROGEN 25 MG/DL (9-23); CARBON DIOXIDE LEVEL 29 MMOL/L (20-31); CHLORIDE LEVEL 104 MMOL/L (98-107); CK-MB VALUE MASS < 1.0 NG/ML (<3.6); CPK CREATINE PHOSPHOKINASE 76 U/L (34-145); CREATININE FOR GFR 0.89 MG/DL (0.55-1.30); GLOMERULAR FILTRATION RATE > 60.0 (>32); GLUCOSE, FASTING 127 MG/DL (74-106); MB/CK RELATIVE INDEX 1.31 (< OR =4); SODIUM LEVEL 139 MMOL/L (136-145)
[2024-01-02 01:59] LABS: CK-MB VALUE MASS < 1.0 NG/ML (<3.6)
[2024-01-02 02:00] VITALS: BP 142/77; O2SAT 96
[2024-01-02 02:01] LABS: CPK CREATINE PHOSPHOKINASE 53 U/L (34-145); MB/CK RELATIVE INDEX 1.88 (< OR =4)
== END 2024-01-02 02:54 | disposition home or self-care (01) ==
LOC: M ED 20:58
DX: R07.9 Chest pain, unspecified (principal); I48.91 Unspecified atrial fibrillation; I44.4 Left anterior fascicular block; I25.2 Old myocardial infarction; N18.30 Chronic kidney disease, stage 3 unspecified; Z86.718 Personal history of other venous thrombosis and embolism; Z86.79 Personal history of other diseases of the circulatory system; Z79.01 Long term (current) use of anticoagulants; Z88.5 Allergy status to narcotic agent; Z91.048 Other nonmedicinal substance allergy status; Z79.82 Long term (current) use of aspirin; Z79.899 Other long term (current) drug therapy

== ENCOUNTER → 2024-03-04 | Outpatient (CLI) | payer MEDICARE ==
[2024-03-04 17:39] LABS: HEMOGLOBIN A1c 6.7 % (4.0-6.0)
[2024-03-04 17:40] LABS: BASO % 0.4 % (0.0-1.0); EOS # 0.1 10^3/uL (0.0-0.5); EOS % 1.8 % (0.0-3.0); HEMATOCRIT 41.2 % (36.0-47.0); HEMOGLOBIN 13.4 g/dl (12.0-15.5); LYMPH # 1.9 10^3/uL (1.5-5.0); LYMPH % 26.4 % (24.0-44.0); MEAN CORPUSCULAR HEMOGLOBIN 29.8 pg (27.0-33.0); MEAN CORPUSCULAR HGB CONC 32.5 g/dl (32.0-36.5); MEAN CORPUSCULAR VOLUME 91.8 fl (80.0-96.0); MONO # 0.7 10^3/uL (0.0-0.8); NEUTROPHILS # 4.4 10^3/uL (1.5-8.5); NEUTROPHILS % 61.3 % (36.0-66.0); PLATELET COUNT, AUTOMATED 125 10^3/uL (150-450); RED BLOOD COUNT 4.49 10^6/uL (4.00-5.40); WHITE BLOOD COUNT 7.2 10^3/uL (4.0-10.0)
[2024-03-04 17:42] LABS: CREATININE, URINE 66.6 MG/DL; MAU/CREAT RATIO 456.4 MCG/MG (0.0-30.0)
[2024-03-04 17:44] LABS: ALBUMIN 3.4 G/DL (3.2-5.2); BILIRUBIN,TOTAL 0.5 MG/DL (0.3-1.2); CALCIUM LEVEL 9.8 MG/DL (8.3-10.6); CREATININE FOR GFR 0.99 MG/DL (0.55-1.30); GLOMERULAR FILTRATION RATE 56.4 (>32); POTASSIUM SERUM 4.5 MMOL/L (3.5-5.1); TOTAL PROTEIN 6.3 G/DL (5.7-8.2)
== END ==
LOC: M PLALAB 15:13
PROVIDERS: ATTEND Family Medicine
DX: E11.22 Type 2 diabetes mellitus with diabetic chronic kidney disease (principal)

== ENCOUNTER → 2024-04-25 | Outpatient (CLI) | payer MEDICARE | LOC: M SOG 07:21 | PROVIDERS: ATTEND Physician Assistant | DX: M25.561 Pain in right knee (principal) ==

== ENCOUNTER 2024-06-13 10:44 | Emergency (ER) | payer MEDICARE, OTHER ==
[~2024-06-13] VITALS: Ht 157.5 cm; Wt 67.9 kg
[2024-06-13 12:34] LABS: BASO % 0.6 % (0.0-1.0); EOS # 0.1 10^3/uL (0.0-0.5); EOS % 0.9 % (0.0-3.0); HEMATOCRIT 40.8 % (36.0-47.0); HEMOGLOBIN 13.4 g/dl (12.0-15.5); LYMPH # 1.5 10^3/uL (1.5-5.0); LYMPH % 22.5 % (24.0-44.0); MEAN CORPUSCULAR HEMOGLOBIN 29.8 pg (27.0-33.0); MEAN CORPUSCULAR HGB CONC 32.8 g/dl (32.0-36.5); MEAN CORPUSCULAR VOLUME 90.9 fl (80.0-96.0); MONO # 0.6 10^3/uL (0.0-0.8); MONO % 9.2 % (2.0-8.0); NEUTROPHILS # 4.3 10^3/uL (1.5-8.5); NEUTROPHILS % 66.2 % (36.0-66.0); PLATELET COUNT, AUTOMATED 142 10^3/uL (150-450); RED BLOOD COUNT 4.49 10^6/uL (4.00-5.40); WHITE BLOOD COUNT 6.5 10^3/uL (4.0-10.0)
[2024-06-13 13:08] LABS: ALBUMIN 3.1 G/DL (3.2-5.2); BILIRUBIN,DIRECT 0.2 MG/DL (<0.4); BILIRUBIN,TOTAL 0.6 MG/DL (0.3-1.2); CALCIUM LEVEL 9.7 MG/DL (8.3-10.6); CREATININE FOR GFR 1.02 MG/DL (0.55-1.30); GLOMERULAR FILTRATION RATE 54.3 (>32); POTASSIUM SERUM 5.9 MMOL/L (3.5-5.1); TOTAL PROTEIN 6.4 G/DL (5.7-8.2)
[2024-06-13] MEDS: cefTRIAXone SOD 1 GM in DEXTROSE 5% (D5W) ADV/MINI-BAG 50 ML IV ONE (13:38)
[2024-06-13] MEDS ORDERED: CEFD1CAP9 PO (15:48)
[2024-06-13 15:58] VITALS: BP 138/69; TEMP 97.3; O2SAT 97
[2024-06-13] MEDS: PATIROMER SORBITEX CALCIUM 8.4 GM POWDER PACKET (VELTASSA) PO ONE (16:10)
== END 2024-06-13 16:45 | disposition home or self-care (01) ==
LOC: M ED 10:44
DX: N39.0 Urinary tract infection, site not specified (principal); R31.9 Hematuria, unspecified; N20.0 Calculus of kidney; I48.91 Unspecified atrial fibrillation; F41.9 Anxiety disorder, unspecified; Z88.5 Allergy status to narcotic agent; Z88.8 Allergy status to other drugs, medicaments and biological substances; Z91.048 Other nonmedicinal substance allergy status; Z79.1 Long term (current) use of non-steroidal anti-inflammatories (NSAID); Z79.2 Long term (current) use of antibiotics; Z79.899 Other long term (current) drug therapy
CPT/HCPCS: 74176; 80048; 80076; 81001; 82550; 84132; 85025; 87088; 87186; 93005; 96374; 99284; J0696

== ENCOUNTER 2024-06-21 19:51 | Emergency (ER) | payer MEDICARE ==
[~2024-06-21] VITALS: Ht 157.5 cm; Wt 67.7 kg
[2024-06-21 20:33] LABS: BASO % 0.5 % (0.0-1.0); EOS # 0.1 10^3/uL (0.0-0.5); EOS % 1.5 % (0.0-3.0); HEMATOCRIT 39.2 % (36.0-47.0); HEMOGLOBIN 13.2 g/dl (12.0-15.5); LYMPH # 1.9 10^3/uL (1.5-5.0); LYMPH % 31.4 % (24.0-44.0); MEAN CORPUSCULAR HEMOGLOBIN 30.1 pg (27.0-33.0); MEAN CORPUSCULAR HGB CONC 33.7 g/dl (32.0-36.5); MEAN CORPUSCULAR VOLUME 89.5 fl (80.0-96.0); MONO # 0.6 10^3/uL (0.0-0.8); MONO % 10.4 % (2.0-8.0); NEUTROPHILS # 3.4 10^3/uL (1.5-8.5); NEUTROPHILS % 55.7 % (36.0-66.0); PLATELET COUNT, AUTOMATED 133 10^3/uL (150-450); RED BLOOD COUNT 4.38 10^6/uL (4.00-5.40); WHITE BLOOD COUNT 6.2 10^3/uL (4.0-10.0)
[2024-06-21] MEDS: ASPIRIN 81MG CHEW TABLET PO ONE (20:49)
[2024-06-21 20:55] LABS: CK-MB VALUE MASS < 1.0 NG/ML (<3.6)
[2024-06-21 20:56] LABS: ALBUMIN 3.2 G/DL (3.2-5.2); ALKALINE PHOSPHATASE 90 U/L (35-104); ALT/SGPT 30 U/L (7.0-40); AST/SGOT 46 U/L (<34); BILIRUBIN,DIRECT 0.1 MG/DL (<0.4); BILIRUBIN,TOTAL 0.3 MG/DL (0.3-1.2); BLOOD UREA NITROGEN 37 MG/DL (9-23); CALCIUM LEVEL 10.4 MG/DL (8.3-10.6); CARBON DIOXIDE LEVEL 23 MMOL/L (20-31); CHLORIDE LEVEL 104 MMOL/L (98-107); CREATININE FOR GFR 1.11 MG/DL (0.55-1.30); GLOMERULAR FILTRATION RATE 49.3 (>32); GLUCOSE, FASTING 148 MG/DL (74-106); POTASSIUM SERUM 4.1 MMOL/L (3.5-5.1); SODIUM LEVEL 136 MMOL/L (136-145); TOTAL PROTEIN 6.2 G/DL (5.7-8.2)
[2024-06-21 21:00] LABS: CPK CREATINE PHOSPHOKINASE 75 U/L (34-145); MB/CK RELATIVE INDEX 1.33 (< OR =4)
[2024-06-21] MEDS ORDERED: ISOVUE-370 76% 100ML VIAL As Ordered ONE (21:02)
[2024-06-21 22:05] LABS: CK-MB VALUE MASS < 1.0 NG/ML (<3.6)
[2024-06-21 22:06] LABS: CPK CREATINE PHOSPHOKINASE 58 U/L (34-145); MB/CK RELATIVE INDEX 1.72 (< OR =4)
[2024-06-21 23:54] LABS: CK-MB VALUE MASS 1.2 NG/ML (<3.6)
[2024-06-21 23:56] LABS: MB/CK RELATIVE INDEX 2.06 (< OR =4)
[2024-06-22 01:14] VITALS: BP 164/79; TEMP 97.4; O2SAT 97
[2024-06-24] MEDS ORDERED: OXYGEN CONCENTRATOR XX (11:37)
== END 2024-06-22 01:34 | disposition home or self-care (01) ==
LOC: M ED 19:51
DX: R91.8 Other nonspecific abnormal finding of lung field (principal); J91.8 Pleural effusion in other conditions classified elsewhere; R07.9 Chest pain, unspecified; I25.2 Old myocardial infarction; I48.91 Unspecified atrial fibrillation; D64.9 Anemia, unspecified; I12.9 Hypertensive chronic kidney disease with stage 1 through stage 4 chronic kidney disease, or unspecified chronic kidney disease; Z85.3 Personal history of malignant neoplasm of breast; Z85.51 Personal history of malignant neoplasm of bladder; Z88.5 Allergy status to narcotic agent; Z88.8 Allergy status to other drugs, medicaments and biological substances; Z79.1 Long term (current) use of non-steroidal anti-inflammatories (NSAID); Z79.2 Long term (current) use of antibiotics; Z79.01 Long term (current) use of anticoagulants; Z79.899 Other long term (current) drug therapy
CPT/HCPCS: 36415; 71046; 71275; 80048; 80076; 82550; 82553; 84484; 85025; 93005; 93041; 94760; 99285; Q9967

== ENCOUNTER → 2024-06-21 | Outpatient (CLI) | payer MEDICARE ==
[~2024-06-21] MED LIST changes: +CEFD1CAP9 PO
== END ==
LOC: M PLAIMG 10:43
PROVIDERS: ATTEND Nurse Practitioner Adult Health
DX: R06.02 Shortness of breath (principal)

== ENCOUNTER → 2024-07-11 | Outpatient (CLI) | payer MEDICARE ==
[~2024-07-11] MED LIST changes: +OXYGEN CONCENTRATOR XX
== END ==
LOC: M PLARAD 11:03
PROVIDERS: ATTEND Internal Medicine Medical Oncology
DX: C50.911 Malignant neoplasm of unspecified site of right female breast (principal); C67.8 Malignant neoplasm of overlapping sites of bladder
CPT/HCPCS: 78815; A9552

== ENCOUNTER → 2024-08-01 | Outpatient (CLI) | payer MEDICARE ==
[~2024-08-01] MED LIST changes: +CIPR-249 PO; +LIDOCAINE 1% MDV 20ML VIAL As Ordered ONE
[2024-08-01 10:00] VITALS: TEMP 98.1
[2024-08-01 10:45] VITALS: BP 113/70; O2SAT 99
== END ==
LOC: M IRPRO 09:38
PROVIDERS: ATTEND Internal Medicine Medical Oncology
DX: R59.0 Localized enlarged lymph nodes (principal); Z85.3 Personal history of malignant neoplasm of breast; Z85.51 Personal history of malignant neoplasm of bladder; C77.3 Secondary and unspecified malignant neoplasm of axilla and upper limb lymph nodes

== ENCOUNTER → 2024-08-18 | Outpatient (REF) | payer MEDICARE ==
[~2024-08-18] MED LIST changes: +ATIV1TAB10 PO; +ATRO2DRO4 SL; +B-12100T2 PO; +DOCU100C16 PO; +FARX1TAB3 PO; +HYOS125TA PO; +LETR2.5T2 PO; -LIDOCAINE 1% MDV 20ML VIAL As Ordered ONE; +MAGNESIUM ASPARTATE PO; +METO1TAB32 PO; +MORP1SOL PO; +MORP1SOL5 PO; +NYST10006 TOP; +ONDA-282 PO; +SENN-186 PO; +SENO8.6T5 PO; +VITA200038 PO
[2024-08-18 17:32] LABS: APPEARANCE, URINE CLEAR (CLEAR); BACTERIA, URINE AUTO NEGATIVE (NEGATIVE); BILIRUBIN, URINE AUTO NEGATIVE (NEGATIVE); BLOOD, URINE BLOOD 3+ (NEGATIVE); COLOR, URINE COLORLESS (YELLOW); GLUCOSE, URINE (UA) AUTO NEGATIVE (NEGATIVE); KETONE, URINE AUTO NEGATIVE (NEGATIVE); LEUKOCYTE ESTERASE, URINE AUTO NEGATIVE (NEGATIVE); MUCUS, URINE SMALL (NEGATIVE); NITRITE, URINE AUTO NEGATIVE (NEGATIVE); PROTEIN, URINE AUTO NEGATIVE (NEGATIVE); RBC, URINE AUTO 53 /HPF (0-3); SPECIFIC GRAVITY URINE AUTO 1.004 (1.002-1.035); SQUAMOUS EPITHELIAL CELL UR AU 0 /HPF (0-6); UROBILINOGEN, URINE AUTO 0.2 mg/dL (0.0-2.0); WBC, URINE AUTO 2 /HPF (0-3)
== END ==
LOC: M SMT 17:08
PROVIDERS: ATTEND Urology
DX: R31.0 Gross hematuria (principal)

== ENCOUNTER → 2024-08-23 | Outpatient (CLI) | payer MEDICARE ==
[~2024-08-23] MED LIST changes: -ATIV1TAB10 PO; -ATRO2DRO4 SL; -B-12100T2 PO; -DOCU100C16 PO; -FARX1TAB3 PO; -HYOS125TA PO; -MAGNESIUM ASPARTATE PO; -METO1TAB32 PO; -MORP1SOL PO; -MORP1SOL5 PO; -NYST10006 TOP; -ONDA-282 PO; -SENN-186 PO; -SENO8.6T5 PO; -VITA200038 PO
== END ==
LOC: M ONCM 07:37
PROVIDERS: ATTEND Dietitian, Registered
DX: C50.919 Malignant neoplasm of unspecified site of unspecified female breast (principal); Z71.3 Dietary counseling and surveillance; Z68.23 Body mass index [BMI] 23.0-23.9, adult

== ENCOUNTER 2024-09-08 11:30 | Inpatient (IN) | payer MEDICARE ==
[~2024-09-08] VITALS: Ht 175.3 cm; Wt 62.9 kg
[2024-09-08 13:15] LABS: BASO % 0.4 % (0.0-1.0); EOS # 0.1 10^3/uL (0.0-0.5); EOS % 1.8 % (0.0-3.0); HEMATOCRIT 35.2 % (36.0-47.0); HEMOGLOBIN 11.6 g/dl (12.0-15.5); LYMPH # 0.7 10^3/uL (1.5-5.0); LYMPH % 26.1 % (24.0-44.0); MEAN CORPUSCULAR HEMOGLOBIN 30.4 pg (27.0-33.0); MEAN CORPUSCULAR VOLUME 92.1 fl (80.0-96.0); MONO # 0.4 10^3/uL (0.0-0.8); MONO % 12.7 % (2.0-8.0); NEUTROPHILS # 1.7 10^3/uL (1.5-8.5); NEUTROPHILS % 58.3 % (36.0-66.0); PLATELET COUNT, AUTOMATED 147 10^3/uL (150-450); RED BLOOD COUNT 3.82 10^6/uL (4.00-5.40); WHITE BLOOD COUNT 2.8 10^3/uL (4.0-10.0)
[2024-09-08 13:24] LABS: KETONE, URINE AUTO RFX NEGATIVE (NEGATIVE); MUCUS, URINE RFX SMALL (NEGATIVE); NITRITE, URINE AUTO RFX NEGATIVE (NEGATIVE); RBC, URINE AUTO RFX TNTC /HPF (0-3); SQUAM EPITHELIAL CELL UR AURFX 0 /HPF (0-6)
[2024-09-08 13:25] LABS: LEUKOCYTE ESTERASE UR AUTO RFX 2+ (NEGATIVE); WBC, URINE AUTO RFX 46 /HPF (0-3)
[2024-09-08 13:37] LABS: LIPASE 240 U/L (12-53)
[2024-09-08 13:41] LABS: ALBUMIN 2.8 G/DL (3.2-5.2); ALKALINE PHOSPHATASE 273 U/L (35-104); ALT/SGPT 487 U/L (7.0-40); AST/SGOT 924 U/L (<34); BILIRUBIN,DIRECT 0.8 MG/DL (<0.4); BILIRUBIN,TOTAL 1.3 MG/DL (0.3-1.2); BLOOD UREA NITROGEN 47 MG/DL (9-23); CALCIUM LEVEL 8.8 MG/DL (8.3-10.6); CARBON DIOXIDE LEVEL 18 MMOL/L (20-31); CHLORIDE LEVEL 111 MMOL/L (98-107); CREATININE FOR GFR 0.74 MG/DL (0.55-1.30); GLOMERULAR FILTRATION RATE > 60.0 (>32); GLUCOSE, FASTING 144 MG/DL (74-106); POTASSIUM SERUM 4.6 MMOL/L (3.5-5.1); SODIUM LEVEL 137 MMOL/L (136-145)
[2024-09-08] MEDS ORDERED: ISOVUE-370 76% 100ML VIAL As Ordered ONE (13:59)
[2024-09-08] MEDS: PIPERACILLIN/TAZOBACTAM SOD 4.5 GM in DEXTROSE 5% (D5W) ADV/MINI-BAG 50 ML IV ONE (15:14)
[2024-09-08] MEDS ORDERED: VITA200038 PO (15:16)
[2024-09-08] MEDS ORDERED: B-12100T2 PO (15:16)
[2024-09-08] MEDS ORDERED: MAGNESIUM ASPARTATE PO (15:16)
[2024-09-08] MEDS ORDERED: HOME MED LIST COMPLETE! XX SCH (15:20)
[2024-09-08] MEDS ORDERED: METO1TAB32 PO (15:21)
[2024-09-08 17:07] LABS: INR 1.85; PARTIAL THROMBOPLASTIN TIME 38.5 SECONDS (24.8-34.2); PROTHROMBIN TIME 21.5 SECONDS (12.5-14.5)
[2024-09-08] MEDS ORDERED: ALBUTEROL SULFATE 2.5MG/0.5ML INH CONCENTRATE NEB SOLN NEB PRN (18:20)
[2024-09-08 19:30] LABS: INR 1.62; PROTHROMBIN TIME 19.4 SECONDS (12.5-14.5)
[2024-09-08 19:46] LABS: DIGOXIN LEVEL 0.1 NG/ML (0.8-2.0)
[2024-09-08 19:55] LABS: PROCALCITONIN 0.2 ng/ml
[2024-09-08] MEDS: ACETAMINOPHEN 325 MG TAB PO PRN (21:19)
[2024-09-08] MEDS: MAGNESIUM GLUCONATE 500 MG TAB PO SCH (21:20)
[2024-09-08] MEDS: CIPROFLOXACIN 400 MG in IV 1 EA IV SCH (21:20)
[2024-09-08 22:54] VITALS: BP 130/75; TEMP 97.3; O2SAT 100
[2024-09-08] MEDS: metroNIDAZOLE 500 MG in IV 1 EA IV SCH (23:19)
[2024-09-09 04:00] VITALS: BP 108/60; TEMP 97.2; O2SAT 96
[2024-09-09] MEDS: ONDANSETRON 4MG 2ML VIAL IV PRN (05:01)
[2024-09-09 06:26] LABS: HEMATOCRIT 31.6 % (36.0-47.0); HEMOGLOBIN 10.7 g/dl (12.0-15.5); MEAN CORPUSCULAR HEMOGLOBIN 30.7 pg (27.0-33.0); MEAN CORPUSCULAR HGB CONC 33.9 g/dl (32.0-36.5); MEAN CORPUSCULAR VOLUME 90.5 fl (80.0-96.0); PLATELET COUNT, AUTOMATED 135 10^3/uL (150-450); RED BLOOD COUNT 3.49 10^6/uL (4.00-5.40); WHITE BLOOD COUNT 2.4 10^3/uL (4.0-10.0)
[2024-09-09 06:54] LABS: ALBUMIN 2.4 G/DL (3.2-5.2); ALKALINE PHOSPHATASE 227 U/L (35-104); ALT/SGPT 379 U/L (7.0-40); AST/SGOT 712 U/L (<34); BILIRUBIN,TOTAL 1.1 MG/DL (0.3-1.2); BLOOD UREA NITROGEN 41 MG/DL (9-23); CALCIUM LEVEL 8.2 MG/DL (8.3-10.6); CARBON DIOXIDE LEVEL 18 MMOL/L (20-31); CHLORIDE LEVEL 111 MMOL/L (98-107); CREATININE FOR GFR 0.81 MG/DL (0.55-1.30); GLOMERULAR FILTRATION RATE > 60.0 (>32); GLUCOSE, FASTING 118 MG/DL (74-106); POTASSIUM SERUM 4.5 MMOL/L (3.5-5.1); SODIUM LEVEL 140 MMOL/L (136-145)
[2024-09-09] MEDS ORDERED: diphenhydrAMINE 50MG/ML VIAL IV PRN (08:00)
[2024-09-09] MEDS: LACTOBACILLUS ACIDOPHILUS CAP (BACID) PO SCH (08:00)
[2024-09-09] MEDS ORDERED: PIPERACILLIN/TAZOBACTAM SOD 2.25 GM in DEXTROSE 5% (D5W) ADV/MINI-BAG 50 ML IV SCH (09:45)
[2024-09-09] MEDS: ASPIRIN 81MG ENTERIC TABLET PO SCH (10:09)
[2024-09-09] MEDS: METOPROLOL SUCC *XL* 25MG TAB (TopROL *XL*) PO SCH (10:10)
[2024-09-09] MEDS: RIVAROXABAN 15MG TAB (XARELTO) PO SCH (10:10)
[2024-09-09] MEDS: DIGOXIN 0.125 MG TAB PO SCH (10:11)
[2024-09-09] MEDS: FUROSEMIDE 40MG/4ML VIAL IV ONE (10:44)
[2024-09-09 12:00] VITALS: BP 107/62; TEMP 96.8; O2SAT 95
[2024-09-09] MEDS: OCUVITE 1 TAB PO SCH (12:23)
[2024-09-09] MEDS: PIPERACILLIN/TAZOBACTAM SOD 3.375 GM in DEXTROSE 5% (D5W) ADV/MINI-BAG 50 ML IV SCH (12:23)
[2024-09-09 21:55] VITALS: BP 110/62; TEMP 97.5
[2024-09-09 22:23] VITALS: BP 110/62; TEMP 98.8; O2SAT 93
[2024-09-10 04:56] VITALS: BP 102/56; TEMP 97.8; O2SAT 97
[2024-09-10 05:08] LABS: HEMATOCRIT 30.8 % (36.0-47.0); HEMOGLOBIN 10.3 g/dl (12.0-15.5); MEAN CORPUSCULAR HEMOGLOBIN 30.6 pg (27.0-33.0); MEAN CORPUSCULAR HGB CONC 33.4 g/dl (32.0-36.5); MEAN CORPUSCULAR VOLUME 91.4 fl (80.0-96.0); PLATELET COUNT, AUTOMATED 131 10^3/uL (150-450); RED BLOOD COUNT 3.37 10^6/uL (4.00-5.40); WHITE BLOOD COUNT 2.7 10^3/uL (4.0-10.0)
[2024-09-10 05:30] LABS: ALBUMIN 2.3 G/DL (3.2-5.2); BILIRUBIN,TOTAL 0.8 MG/DL (0.3-1.2); CALCIUM LEVEL 8.2 MG/DL (8.3-10.6); CREATININE FOR GFR 0.94 MG/DL (0.55-1.30); GLOMERULAR FILTRATION RATE 59.7 (>32)
[2024-09-10] MEDS: MAGNESIUM OXIDE 400MG TAB (MAG-OX) PO SCH (10:23)
[2024-09-10] MEDS: FUROSEMIDE 40 MG TAB PO SCH (10:24)
[2024-09-10 12:00] VITALS: BP 102/69; TEMP 97.2; O2SAT 95
[2024-09-10] MEDS: metroNIDAZOLE (FLAGYL) 500MG TABLET PO SCH (14:21)
[2024-09-10] MEDS: LevoFLOXacin 750 MG TABLET PO SCH (17:31)
[2024-09-10 19:06] LABS: CK-MB VALUE MASS 1.8 NG/ML (<3.6)
[2024-09-10 19:07] LABS: MB/CK RELATIVE INDEX 2.19 (< OR =4)
[2024-09-10 19:46] VITALS: BP 112/64; TEMP 97.5; O2SAT 94
[2024-09-10 19:48] VITALS: TEMP 97.7
[2024-09-10] MEDS: DOCUSATE SODIUM 100MG CAPSULE PO SCH (20:19)
[2024-09-10] MEDS: SIMETHICONE 80MG CHEW TAB PO PRN (20:19)
[2024-09-10] MEDS: SODIUM CHLORIDE NASAL 0.65% SPRAY BTL (OCEAN) PRN (23:58)
[2024-09-10] MEDS: KETOROLAC 30 MG/ML 1ML VIAL IV ONE (23:59)
[2024-09-11] MEDS ORDERED: RAMELTEON 8 MG TAB (ROZEREM) PO ONE (02:15)
[2024-09-11 06:00] VITALS: BP 114/64; TEMP 96.9; O2SAT 99
[2024-09-11 06:17] LABS: HEMATOCRIT 30.8 % (36.0-47.0); HEMOGLOBIN 10.3 g/dl (12.0-15.5); MEAN CORPUSCULAR HEMOGLOBIN 29.9 pg (27.0-33.0); MEAN CORPUSCULAR HGB CONC 33.4 g/dl (32.0-36.5); MEAN CORPUSCULAR VOLUME 89.5 fl (80.0-96.0); PLATELET COUNT, AUTOMATED 131 10^3/uL (150-450); RED BLOOD COUNT 3.44 10^6/uL (4.00-5.40); WHITE BLOOD COUNT 2.6 10^3/uL (4.0-10.0)
[2024-09-11 06:39] LABS: ALBUMIN 2.2 G/DL (3.2-5.2); BILIRUBIN,TOTAL 0.9 MG/DL (0.3-1.2); CALCIUM LEVEL 8.3 MG/DL (8.3-10.6); CREATININE FOR GFR 0.95 MG/DL (0.55-1.30); POTASSIUM SERUM 4.1 MMOL/L (3.5-5.1); TOTAL PROTEIN 4.9 G/DL (5.7-8.2)
[2024-09-11 12:00] VITALS: BP 98/58; TEMP 97.7; O2SAT 100
[2024-09-11 20:01] VITALS: BP 103/61; TEMP 97.5; O2SAT 97
[2024-09-11 22:32] VITALS: O2SAT 98
[2024-09-11 22:33] VITALS: O2SAT 99
[2024-09-11] MEDS: RAMELTEON 8 MG TAB (ROZEREM) PO ONE (22:45)
[2024-09-11] MEDS: SENNA 8.6 MG TAB (SENOKOT) PO PRN (22:45)
[2024-09-12 03:44] VITALS: BP 98/44; TEMP 97.3; O2SAT 98
[2024-09-12 04:58] LABS: HEMATOCRIT 29.1 % (36.0-47.0); HEMOGLOBIN 9.8 g/dl (12.0-15.5); MEAN CORPUSCULAR HEMOGLOBIN 30.7 pg (27.0-33.0); MEAN CORPUSCULAR HGB CONC 33.7 g/dl (32.0-36.5); MEAN CORPUSCULAR VOLUME 91.2 fl (80.0-96.0); PLATELET COUNT, AUTOMATED 130 10^3/uL (150-450); RED BLOOD COUNT 3.19 10^6/uL (4.00-5.40); WHITE BLOOD COUNT 2.6 10^3/uL (4.0-10.0)
[2024-09-12 05:12] LABS: ALBUMIN 2.1 G/DL (3.2-5.2); ALKALINE PHOSPHATASE 210 U/L (35-104); ALT/SGPT 236 U/L (7.0-40); AST/SGOT 411 U/L (<34); BILIRUBIN,TOTAL 0.7 MG/DL (0.3-1.2); BLOOD UREA NITROGEN 39 MG/DL (9-23); CALCIUM LEVEL 8.3 MG/DL (8.3-10.6); CARBON DIOXIDE LEVEL 17 MMOL/L (20-31); CHLORIDE LEVEL 112 MMOL/L (98-107); CREATININE FOR GFR 0.89 MG/DL (0.55-1.30); GLOMERULAR FILTRATION RATE > 60.0 (>32); GLUCOSE, FASTING 163 MG/DL (74-106); POTASSIUM SERUM 4.5 MMOL/L (3.5-5.1); SODIUM LEVEL 137 MMOL/L (136-145); TOTAL PROTEIN 4.7 G/DL (5.7-8.2)
[2024-09-13 03:43] VITALS: BP 107/59; TEMP 97.3; O2SAT 98
[2024-09-13 06:53] LABS: HEMATOCRIT 32.2 % (36.0-47.0); HEMOGLOBIN 10.7 g/dl (12.0-15.5); MEAN CORPUSCULAR HEMOGLOBIN 30.5 pg (27.0-33.0); MEAN CORPUSCULAR HGB CONC 33.2 g/dl (32.0-36.5); MEAN CORPUSCULAR VOLUME 91.7 fl (80.0-96.0); PLATELET COUNT, AUTOMATED 138 10^3/uL (150-450); RED BLOOD COUNT 3.51 10^6/uL (4.00-5.40); WHITE BLOOD COUNT 3.3 10^3/uL (4.0-10.0)
[2024-09-13 07:35] LABS: ALBUMIN 2.5 G/DL (3.2-5.2); ALKALINE PHOSPHATASE 223 U/L (35-104); ALT/SGPT 223 U/L (7.0-40); AST/SGOT 398 U/L (<34); BLOOD UREA NITROGEN 33 MG/DL (9-23); CALCIUM LEVEL 8.6 MG/DL (8.3-10.6); CARBON DIOXIDE LEVEL 16 MMOL/L (20-31); CHLORIDE LEVEL 112 MMOL/L (98-107); CREATININE FOR GFR 0.82 MG/DL (0.55-1.30); GLOMERULAR FILTRATION RATE > 60.0 (>32); GLUCOSE, FASTING 116 MG/DL (74-106); POTASSIUM SERUM 5.4 MMOL/L (3.5-5.1); SODIUM LEVEL 137 MMOL/L (136-145); TOTAL PROTEIN 5.2 G/DL (5.7-8.2)
[2024-09-14 04:13] VITALS: BP 111/61; TEMP 97.3; O2SAT 98
[2024-09-14 08:26] VITALS: BP 100/57
[2024-09-14] MEDS ORDERED: ATROPINE SULFATE 1% OPHTH SOLN 2ML BTL SL PRN (10:35)
[2024-09-14] MEDS ORDERED: HYOSCYAMINE SULFATE 0.125 MG SUBL TABLET PO PRN (10:35)
[2024-09-15] MEDS: MORPHINE 10MG/0.5ML ORAL CONCENTRATE SOLUTION U/D SL PRN (02:40)
[2024-09-15] MEDS: LORazepam 1 MG TAB PO PRN (03:41)
[2024-09-15] MEDS: ONDANSETRON 4MG ORAL DISINTEGRATING TAB PO PRN (15:34)
[2024-09-16] MEDS: BENZONATATE 100MG CAPSULE PO PRN (00:02)
[2024-09-16 08:00] VITALS: BP 104/68; TEMP 97.3; O2SAT 98
[2024-09-17 10:01] VITALS: BP 102/66
[2024-09-19] MEDS: MORPHINE 10MG/0.5ML ORAL CONCENTRATE SOLUTION U/D SL SCH (13:09)
[2024-09-19] MEDS ORDERED: HYOS125TA PO (16:24)
[2024-09-19] MEDS ORDERED: ATRO2DRO4 SL (16:24)
[2024-09-19] MEDS ORDERED: COLA100C5 PO (16:24)
[2024-09-19] MEDS ORDERED: SENO8.6T5 PO (16:24)
[2024-09-19] MEDS ORDERED: MORP1SOL5 PO (16:24)
[2024-09-19] MEDS ORDERED: ONDA-282 PO (16:24)
[2024-09-19] MEDS ORDERED: ATIV1TAB10 PO (16:24)
[2024-09-19] MEDS ORDERED: LORazepam 1 MG TAB PO SCH (21:00)
[2024-09-20] MEDS ORDERED: LETR2.5T2 PO (02:04)
[2024-09-20] MEDS ORDERED: FARX1TAB3 PO (02:04)
[2024-09-20] MEDS ORDERED: DOCU100C16 PO (02:04)
[2024-09-20] MEDS ORDERED: ATRO2DRO4 SL (02:04)
[2024-09-20] MEDS ORDERED: HYOS125TA PO (02:04)
[2024-09-20] MEDS ORDERED: MORP1SOL PO (02:04)
[2024-09-20] MEDS ORDERED: SENN-186 PO (02:04)
[2024-09-20] MEDS ORDERED: ONDA-282 PO (02:04)
[2024-09-20] MEDS ORDERED: ATIV1TAB10 PO (02:04)
== END 2024-09-19 19:43 | disposition hospice, home (50) | DRG 871 ==
LOC: M ED 11:30 → EDBD 11:30 → M ED INP 18:13 → M MSPAV 22:54
PROVIDERS: ADMIT Internal Medicine; ATTEND Internal Medicine Nephrology
DX: A41.9 Sepsis, unspecified organism (principal); I50.33 Acute on chronic diastolic (congestive) heart failure; K85.90 Acute pancreatitis without necrosis or infection, unspecified; C79.51 Secondary malignant neoplasm of bone; C79.82 Secondary malignant neoplasm of genital organs; K57.32 Diverticulitis of large intestine without perforation or abscess without bleeding; N39.0 Urinary tract infection, site not specified; C77.3 Secondary and unspecified malignant neoplasm of axilla and upper limb lymph nodes; C77.1 Secondary and unspecified malignant neoplasm of intrathoracic lymph nodes; J96.11 Chronic respiratory failure with hypoxia; C67.9 Malignant neoplasm of bladder, unspecified; N18.30 Chronic kidney disease, stage 3 unspecified; I25.10 Atherosclerotic heart disease of native coronary artery without angina pectoris; C50.912 Malignant neoplasm of unspecified site of left female breast; L89.152 Pressure ulcer of sacral region, stage 2; I27.22 Pulmonary hypertension due to left heart disease; I48.91 Unspecified atrial fibrillation; Z51.5 Encounter for palliative care; Z66 Do not resuscitate; Z85.828 Personal history of other malignant neoplasm of skin; Z96.652 Presence of left artificial knee joint; Z79.82 Long term (current) use of aspirin; Z79.01 Long term (current) use of anticoagulants; Z79.899 Other long term (current) drug therapy; Z88.5 Allergy status to narcotic agent; Z86.718 Personal history of other venous thrombosis and embolism; Z91.02 Food additives allergy status; Z91.048 Other nonmedicinal substance allergy status; Z90.12 Acquired absence of left breast and nipple; Z99.81 Dependence on supplemental oxygen

== ENCOUNTER 2024-09-19 22:23 | Observation (INO) | payer MEDICARE ==
[~2024-09-19] VITALS: Ht 157.5 cm; Wt 66.8 kg
[~2024-09-19 22:23] MED LIST changes: +ATIV1TAB10 PO; +ATRO2DRO4 SL; +B-12100T2 PO; +HYOS125TA PO; +MAGNESIUM ASPARTATE PO; +METO1TAB32 PO; +MORP1SOL5 PO; +ONDA-282 PO; +SENO8.6T5 PO; +VITA200038 PO
[2024-09-20 00:58] LABS: BASO % 0.4 % (0.0-1.0); EOS # 0.1 10^3/uL (0.0-0.5); EOS % 1.3 % (0.0-3.0); HEMATOCRIT 35.9 % (36.0-47.0); HEMOGLOBIN 11.7 g/dl (12.0-15.5); LYMPH # 0.7 10^3/uL (1.5-5.0); LYMPH % 13.8 % (24.0-44.0); MEAN CORPUSCULAR HEMOGLOBIN 31.7 pg (27.0-33.0); MEAN CORPUSCULAR HGB CONC 32.6 g/dl (32.0-36.5); MEAN CORPUSCULAR VOLUME 97.3 fl (80.0-96.0); MONO # 0.7 10^3/uL (0.0-0.8); MONO % 12.3 % (2.0-8.0); NEUTROPHILS # 3.9 10^3/uL (1.5-8.5); NEUTROPHILS % 71.6 % (36.0-66.0); PLATELET COUNT, AUTOMATED 199 10^3/uL (150-450); RED BLOOD COUNT 3.69 10^6/uL (4.00-5.40); WHITE BLOOD COUNT 5.4 10^3/uL (4.0-10.0)
[2024-09-20 01:08] LABS: ALBUMIN 2.7 G/DL (3.2-5.2); ALKALINE PHOSPHATASE 205 U/L (35-104); ALT/SGPT 88 U/L (7.0-40); AST/SGOT 112 U/L (<34); BILIRUBIN,TOTAL 0.8 MG/DL (0.3-1.2); BLOOD UREA NITROGEN 29 MG/DL (9-23); CALCIUM LEVEL 8.6 MG/DL (8.3-10.6); CARBON DIOXIDE LEVEL 14 MMOL/L (20-31); CHLORIDE LEVEL 111 MMOL/L (98-107); GLOMERULAR FILTRATION RATE > 60.0 (>32); GLUCOSE, FASTING 145 MG/DL (74-106); POTASSIUM SERUM 5.4 MMOL/L (3.5-5.1); SODIUM LEVEL 134 MMOL/L (136-145); TOTAL PROTEIN 5.8 G/DL (5.7-8.2)
[2024-09-20] MEDS ORDERED: ATIV1TAB10 PO (02:04)
[2024-09-20] MEDS ORDERED: FARX1TAB3 PO (02:04)
[2024-09-20] MEDS ORDERED: LETR2.5T2 PO (02:04)
[2024-09-20] MEDS ORDERED: HYOS125TA PO (02:04)
[2024-09-20] MEDS ORDERED: MORP1SOL PO (02:04)
[2024-09-20] MEDS ORDERED: DOCU100C16 PO (02:04)
[2024-09-20] MEDS ORDERED: ONDA-282 PO (02:04)
[2024-09-20] MEDS ORDERED: SENN-186 PO (02:04)
[2024-09-20] MEDS ORDERED: ATRO2DRO4 SL (02:04)
[2024-09-20] MEDS ORDERED: HOME MED LIST COMPLETE! XX SCH (02:05)
[2024-09-20] MEDS ORDERED: ONDANSETRON 4MG ORAL DISINTEGRATING TAB PO PRN (02:50)
[2024-09-20] MEDS ORDERED: SENNA 8.6 MG TAB (SENOKOT) PO PRN (02:50)
[2024-09-20] MEDS: ACETAMINOPHEN 650MG ER TAB (TYLENOL ARTHRITIS) PO PRN (03:33)
[2024-09-20] MEDS: DAPAGLIFLOZIN PROPANEDIOL 10MG TABLET (FARXIGA) PO SCH (08:32)
[2024-09-20] MEDS: FUROSEMIDE 40 MG TAB PO SCH (08:32)
[2024-09-20] MEDS: DIGOXIN 0.125 MG TAB PO SCH (08:33)
[2024-09-20] MEDS: DOCUSATE SODIUM 100MG CAPSULE PO SCH (08:33)
[2024-09-20] MEDS: LETROZOLE 2.5 MG TAB PO SCH (08:33)
[2024-09-20 08:36] VITALS: BP 92/53; TEMP 98.8
[2024-09-20] MEDS: METOPROLOL SUCC *XL* 25MG TAB (TopROL *XL*) PO SCH (08:36)
[2024-09-20] MEDS ORDERED: MORPHINE 10MG/0.5ML ORAL CONCENTRATE SOLUTION U/D SL PRN (16:15)
[2024-09-20] MEDS ORDERED: ATROPINE SULFATE 1% OPHTH SOLN 2ML BTL SL PRN (16:15)
[2024-09-20] MEDS ORDERED: HYOSCYAMINE SULFATE 0.125 MG SUBL TABLET PO PRN (16:15)
[2024-09-20] MEDS: MORPHINE 10MG/0.5ML ORAL CONCENTRATE SOLUTION U/D SL SCH (17:49)
[2024-09-20] MEDS ORDERED: RIVAROXABAN 15MG TAB (XARELTO) PO SCH (18:00)
[2024-09-20 18:49] VITALS: O2SAT 97
[2024-09-20] MEDS: LORazepam 1 MG TAB PO SCH (20:44)
[2024-09-21] MEDS: NYSTATIN 100,000 UNITS/GM TOPICAL PWD 15GM TOP SCH (05:21)
[2024-09-21] MEDS: LORazepam 1 MG TAB PO PRN (08:42)
[2024-09-23] MEDS ORDERED: NYST10006 TOP (09:28)
[2024-09-23] MEDS ORDERED: ATIV1TAB10 PO (09:28)
[2024-09-23] MEDS ORDERED: HYOS125TA PO (09:28)
[2024-09-23] MEDS ORDERED: MORP1SOL5 PO (09:28)
[2024-09-23] MEDS ORDERED: ONDA-282 PO (09:28)
[2024-09-23] MEDS ORDERED: SENN-186 PO (09:29)
== END 2024-09-23 13:47 | disposition hospice, inpatient (51) ==
LOC: EDBD 22:23 → M ED 22:23 → M ED INP 22:24 → M MSPAV 09-20 22:08
PROVIDERS: ADMIT Student in an Organized Health Care Education/Training Program; ATTEND Student in an Organized Health Care Education/Training Program
DX: R53.1 Weakness (principal); C79.11 Secondary malignant neoplasm of bladder; C79.81 Secondary malignant neoplasm of breast; Z90.12 Acquired absence of left breast and nipple; C79.82 Secondary malignant neoplasm of genital organs; C79.51 Secondary malignant neoplasm of bone; I50.32 Chronic diastolic (congestive) heart failure; E87.20 Acidosis, unspecified; N18.30 Chronic kidney disease, stage 3 unspecified; I25.10 Atherosclerotic heart disease of native coronary artery without angina pectoris; I48.91 Unspecified atrial fibrillation; Z86.718 Personal history of other venous thrombosis and embolism; Z74.1 Need for assistance with personal care; Z93.2 Ileostomy status; Z85.828 Personal history of other malignant neoplasm of skin; Z96.652 Presence of left artificial knee joint; Z51.5 Encounter for palliative care; Z88.5 Allergy status to narcotic agent; Z88.1 Allergy status to other antibiotic agents; Z91.02 Food additives allergy status; Z91.048 Other nonmedicinal substance allergy status; Z79.899 Other long term (current) drug therapy; Z79.01 Long term (current) use of anticoagulants; Z66 Do not resuscitate
CPT/HCPCS: 80053; 85025; 87426; G0378